=== PATIENT | female | born 1950 | race Caucasian/White ===

== ENCOUNTER → 2017-09-22 | Outpatient (CLI) | payer MEDICARE, MEDICAID ==
[2015-05-31 17:29] VITALS: BMI 39.4
[~2017-09-22] MED LIST: ACET500T68 PO; ASPI-1471 PO; ASPI-757 PO; CEP500 PO; CHOL500025 PO; DIAZ-308 PO; DULO60CA56 PO; FAM20 PO; FLUT16SP19; GABA-549 PO; HCTZ25 PO; HYDR-2966 PO; HYDR-389 PO; IBU600 PO; IBU800 PO; LISI2.5T60 PO; LOR5/325 PO; MET50 PO; METO-222 PO; MONT10TA PO; OMEP-153 PO; OMEP40CA48 PO; ONDA4TAB PO; ONDA8TAB98 PO; OXY5 PO; PHENA200 PO; RANI150T PO; SODI30SP6 NS; SULF-198 PO
--- NOTE | 2017-09-22 16:09 | EKG ---
FACILITY: [facility] [place] PATIENT NAME: TRINA COPELAND : [id number] MR: [id number] V: [id number] EXAM DATE: ORDERING PHYSICIAN: TEENA RECINOS TECHNOLOGIST: KIRAN Test Reason : z01.810 Blood Pressure : / mmHG Vent. Rate : 084 BPM Atrial Rate : 084 BPM P-R Int : 130 ms QRS Dur : 076 ms QT Int : 376 ms P-R-T Axes : 037 049 037 degrees QTc Int : 444 ms Sinus rhythm No acute appearing findings No previous ECGs available Confirmed by BI ORTEGA ([id number]) on 09/22/2017 7:53:09 PM Referred By: GRISEL Confirmed By:BI ORTEGA
== END ==
LOC: RESP 15:57
PROVIDERS: ATTEND Anesthesiology
DX: Z01.810 Encounter for preprocedural cardiovascular examination (principal); G24.5 Blepharospasm; H02.042 Spastic entropion of right lower eyelid; H02.045 Spastic entropion of left lower eyelid
CPT/HCPCS: 93005

== ENCOUNTER → 2017-11-12 | Outpatient (CLI) | payer MEDICARE ==
[2015-05-31 17:29] VITALS: BMI 39.4
--- NOTE | 2017-11-12 12:04 | RADIOLOGY IMAGING REPORT ---
FACILITY: [facility] PATIENT NAME: Luciana Berg : 1950 MR: [id number] V: [id number] EXAM DATE: ORDERING PHYSICIAN: LIDIA HAYES TECHNOLOGIST: Location: [facility] Patient: Luciana Berg : 1950 Visit/Account:[id number] Date of Sevice: 11/12/2017 LIVER HISTORY: Fatty liver COMPARISON: December 23, 2008 FINDINGS: Gallbladder: Surgically absent Liver: There is mild heterogeneous echotexture throughout the liver although discrete masses were not demonstrated. The liver is normal in size Common duct: Normal, 7.7 mm diameter. Pancreas: Mostly obscured by bowel gas Right kidney: Right kidney appears grossly unremarkable measuring 9 cm in length although is difficul t to image due to patient's body habitus Upper abdominal aorta and IVC: Patent. Ascites: None visualized. IMPRESSION: There is a mildly heterogeneous echotexture throughout the liver although discrete mass is not demons trated. Pancreas mostly obscured by bowel gas Right kidney appears grossly unremarkable although difficult to visualize due to patient's body habit us Report Dictated By: Francesca Wagoner MD at 11/12/2017 11:59 AM Report E-Signed By: Francesca Wagoner MD at 11/12/2017 12:01 PM WSN:[email or web address]
== END ==
LOC: US 01:14
PROVIDERS: ATTEND Nurse Practitioner Family
DX: K76.0 Fatty (change of) liver, not elsewhere classified (principal); Z90.49 Acquired absence of other specified parts of digestive tract
CPT/HCPCS: 76705

== ENCOUNTER 2017-11-20 01:38 | Day surgery (SDC) | payer MEDICARE ==
[2015-05-31 17:29] VITALS: Ht 166.4 cm; Wt 103.4 kg
[~2017-11-20] VITALS: Ht 166.4 cm; Wt 103.4 kg
[~2017-11-20 01:38] MED LIST changes: +CHOL10005 PO; +GARL1500 PO; +IBUP-1671 PO; +LOSA50TA72 PO
[2017-11-20] MEDS ORDERED: LIDOCAINE MPF 1% 5 ML VIAL ONE ×2 (12:34→13:58)
[2017-11-20] MEDS ORDERED: PROPOFOL EMUL(*) 10MG/ML 20 ML 40 ML ONE (12:34)
[2017-11-20] MEDS ORDERED: GLYCOPYRROLATE 0.2 MG/ML SDV IVP ONE (13:00)
[2017-11-20] MEDS ORDERED: LIDOCAINE/SOD BICARB 8.4% SYR ID ONE (13:25)
[2017-11-20] MEDS: NORMOSOL R SOLN(*) 1000 ML BAG 1,000 ML IV PRN ×2 (14:00→15:40)
[2017-11-20 14:24] VITALS: BP 150/67
[2017-11-20] MEDS ORDERED: ONDANSETRON 4 MG/2 ML VIAL ONE (14:56)
[2017-11-20 16:07] VITALS: BP 135/66
[2017-11-20 16:20] VITALS: BP 127/64
[2017-11-20 17:00] VITALS: BP 128/81
== END 2017-11-20 17:22 | disposition home or self-care (01) ==
LOC: OR 01:38
PROVIDERS: ATTEND Internal Medicine Gastroenterology
DX: K44.9 Diaphragmatic hernia without obstruction or gangrene (principal); K20.9 Esophagitis, unspecified; K29.70 Gastritis, unspecified, without bleeding
CPT/HCPCS: 43239; 43248; 88305; 88313; 88344; J2001; J2405; J2704; J3490

== ENCOUNTER 2018-02-09 13:16 | Outpatient (RCR) | payer MEDICARE, MEDICAID ==
[2015-05-31 17:29] VITALS: BMI 39.4
[2018-02-09 13:43] LABS: PLATELET COUNT, AUTOMATED 166 K/uL (150-450)
[2018-02-09 13:47] LABS: INR 1.11
[2018-02-10] MEDS ORDERED: GADOBENATE 529MG/1ML 15ML VIAL IVP ONE (11:05)
[2018-02-10] MEDS ORDERED: NS 0.9% 25 ML BAG 50 ML ONE (11:06)
--- NOTE | 2018-02-10 15:23 | RADIOLOGY IMAGING REPORT ---
FACILITY: [facility] PATIENT NAME: Luciana Berg : 1950 MR: [id number] V: [id number] EXAM DATE: ORDERING PHYSICIAN: FELICE RICHARDS TECHNOLOGIST: Location: [facility] Patient: Luciana Berg : 1950 Visit/Account:[id number] Date of Sevice: 02/10/2018 ABDOMEN MR W W/O CONTRAST HISTORY: Abnormal liver imaging, abnormal liver function tests, liver problems following cholecystec kyra in 2004 ADDITIONAL HISTORY: None. TECHNIQUE: TECHNIQUE: Multiplanar multisequence magnetic resonance imaging of the abdomen with and without intravenous contrast. CONTRAST: 15 mL of MultiHance COMPARISON: MR of the abdomen with and without contrast November 13, [address] of abdomen and pelvis March 12, 2017 FINDINGS: Visualized lung bases: Grossly unremarkable. Liver: There appears to been either partial postsurgical resection of the right lobe of the liver jacquie chalino focal atrophy of the right lobe. The left lobe is hypertrophied. Gallbladder: Surgically removed Bile ducts: Not grossly dilated at this time Spleen: Negative. Adrenal glands: Previous described right adrenal calcified occasions were better depicted by CT Pancreas: Negative. Kidneys: Negative. 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 Also noted are postsurgical changes from a cholecystec kyra. Gastroesophageal varices, gastric and splenic varices again noted consistent with portal hypertension Report Dictated By: Francesca Wagoner MD at 02/10/2018 2:51 PM Report E-Signed By: Francesca Wagoner MD at 02/10/2018 3:18 PM WILLYN:[email or web address]
== END 2018-02-10 18:00 | disposition home or self-care (01) ==
LOC: MRI 13:16 → EDSTATUS 02-10 13:15 → MRI 02-10 18:00
PROVIDERS: ATTEND Internal Medicine Gastroenterology
DX: R93.2 Abnormal findings on diagnostic imaging of liver and biliary tract (principal); R94.5 Abnormal results of liver function studies; I85.00 Esophageal varices without bleeding; I86.4 Gastric varices; Z90.49 Acquired absence of other specified parts of digestive tract
CPT/HCPCS: 36415; 74183; 85025; 85610; A9577; 82040; 82247; 82310; 82374; 82435; 82565; 82947; 84075; 84132; 84155; 84295; 84450; 84460; 84520

== ENCOUNTER → 2018-04-07 | Outpatient (CLI) | payer MEDICARE ==
[2015-05-31 17:29] VITALS: BMI 39.4
[2018-04-07 17:37] LABS: LDL CHOLESTEROL 82 mg/dl
== END ==
LOC: LAB 16:32
PROVIDERS: ATTEND Nurse Practitioner Family
DX: R73.01 Impaired fasting glucose (principal); E78.00 Pure hypercholesterolemia, unspecified; E87.8 Other disorders of electrolyte and fluid balance, not elsewhere classified; R53.81 Other malaise; E55.9 Vitamin D deficiency, unspecified; E83.89 Other disorders of mineral metabolism
CPT/HCPCS: 36415; 82040; 82247; 82306; 82310; 82374; 82435; 82465; 82565; 82607; 82947; 83036; 83718; 84075; 84132; 84155; 84295; 84443; 84450; 84460; 84478; 84520

== ENCOUNTER → 2018-04-08 | Outpatient (CLI) | payer MEDICARE ==
[2015-05-31 17:29] VITALS: BMI 39.4
--- NOTE | 2018-04-08 15:06 | RADIOLOGY IMAGING REPORT ---
FACILITY: [facility] PATIENT NAME: Luciana Berg : 1950 MR: [id number] V: [id number] EXAM DATE: ORDERING PHYSICIAN: SHILA HUBBARD TECHNOLOGIST: Location: [facility] [place] Patient: Luciana Berg : 1950 Visit/Account:[id number] Date of Sevice: 04/08/2018 DEXA Scan Clinical history: Postmenopausal. Comparison: DEXA scan from 07/10/2011. LUMBAR SPINE: The bone mineral density (BMD) measured from L1-L4 correlates with a Z-score of -1 and a T-score of - 1.5 which is osteopenia as defined by the World Health Organization. The corresponding risk of fract ure in the lumbar spine is 3 times increased compared with a young adult reference population. This value has decrease by -8.7 % since the prior study. More than 5% change is considered significant. HIP: Bone mineral density (BMD) measured in the LEFT total hip region correlates with a Z-score 0.1 and a T-score of -0.5 which is normal as defined by the World Health Organization. The corresponding risk of fracture in the hip is 1-2 t imes increased compared to a young adult reference population. This value has decrease by 4.3 % since the prior study. More than 5% change is considered significant. T score left femoral neck -1.2 Bone mineral density (BMD) measured in the Femoral Neck region measures 0.871 g/cm?. IMPRESSION: 1. Lumbar spine: Osteopenia. There has been 8.7% decrease in the bone mineral density since the pre vious exam. 2. Left Total Hip: Normal. There has been 4.3% decrease in the bone mineral density since the previ ous exam. 3. Femoral Neck: Bone Mineral Density is 0.871 g/cm? The next DEXA scan of this patient should include the following sites: L1-L4 and the left hip. FRAX? WHO Fracture Risk Assessment Tool link: <http://www.shef.ac.uk/FRAX/tool.jsp?locationValue=9> PLEASE NOTE: 1) The World Health Organization defines low BMD as follows: T-score Normal > -1 Osteopenia < -1 and > -2.5 Osteoporosis < -2.5 without fractures Established osteoporosis < -2.5 with fractures 2) In general, you may wish to consider: Diagnosis Treatment Follow-up DEXA Normal BMD Prevention 2-3 years Osteopenia Prevention/therapy 1-2 years Osteoporosis Therapy Yearly 3) Fracture risk estimated from the T-score is more accurate for vertebral fractures (often spontane ous) than for hip fractures. Report Dictated By: Francesca Wagoner MD at 04/08/2018 3:01 PM Report E-Signed By: Francesca Wagoner MD at 04/08/2018 3:02 PM WSN:[email or web address]
--- NOTE | 2018-04-09 15:03 | RADIOLOGY IMAGING REPORT ---
FACILITY: [facility] PATIENT NAME: TRINA COPELAND : [id number] MR: [id number] V: [id number] EXAM DATE: [id number] ORDERING PHYSICIAN: SHILA HUBABRD TECHNOLOGIST: Makenzie Crystal This report includes an Addendum and supersedes previous reports for this exam. PROCEDURE:BILATERAL DIGITAL SCREENING MAMMOGRAM WITH CAD ASSISTED INTERPRETATION & 3D TOMOSYNTHESIS COMPARISON:Prior mammograms 08/01/16, 03/03/15, 02/21/14, 02/11/13, 01/29/12. INDICATIONS:screening FINDINGS: Moderately dense fibroglandular tissue is seen throughout the breasts. The parenchymal pattern has remained stable allowing for difference in mammographic technique & patient positioning. There is no evidence of malignant appearing mass, malignant appearing calcifications or other secondary sign of malignancy in either breast. DIAGNOSTIC CATEGORY 1--NEGATIVE. RECOMMENDATIONS: ROUTINE MAMMOGRAM AND CLINICAL EVALUATION. IMPRESSION: BIRADS 1: Negative. No significant abnormality is seen. Dictated by: Francesca Wagoner M.D. on 04/08/2018 at 14:16 Transcribed by: [place] on 04/08/2018 at 14:19 Approved by: Francesca Wagoner M.D. on 04/09/2018 at 15:02 [facility] ADDENDUM: FINDINGS: The mammograms were performed without 3D breast Tomosynthesis . DIAGNOSTIC CATEGORY 1--NEGATIVE. RECOMMENDATIONS: ROUTINE MAMMOGRAM AND CLINICAL EVALUATION. Dictated by: Francesca Wagoner M.D. on 04/09/2018 at 15:18 Transcribed by: [place] on 04/09/2018 at 15:22 Approved by: Francesca Wagoner M.D. on 04/10/2018 at 8:37 [facility]
== END ==
LOC: MAMO 04-07 16:28
PROVIDERS: ATTEND Nurse Practitioner Family
DX: Z13.820 Encounter for screening for osteoporosis (principal); Z12.31 Encounter for screening mammogram for malignant neoplasm of breast; M85.88 Other specified disorders of bone density and structure, other site; N95.9 Unspecified menopausal and perimenopausal disorder; Z78.0 Asymptomatic menopausal state
CPT/HCPCS: 77063; 77067; 77080

== ENCOUNTER → 2018-04-08 | Outpatient (CLI) | payer MEDICARE ==
[2015-05-31 17:29] VITALS: BMI 39.4
== END ==
LOC: RAD 13:13
PROVIDERS: ATTEND Nurse Practitioner Family
DX: Z02.9 Encounter for administrative examinations, unspecified (principal)

== ENCOUNTER 2018-04-24 01:24 | Emergency (ER) | payer MEDICARE ==
[2015-05-31 17:29] VITALS: Wt 103.5 kg
--- NOTE | 2018-04-24 01:27 | ER Report ---
History and Physical Time Seen By MD: 01:24 HPI/ROS CHIEF COMPLAINT: Confusion HISTORY OF PRESENT ILLNESS: 67-year-old female [place] in by EMS [place] the post office where she was stranded for a long time. She apparently has been missing for 4 hours. EMS performed a glucose of 59. She was sitting in a car for so long and she became incontinent of urine in her seat. She has foul-smelling urine. Patient initially was confused, but after oral candy. Patient's glucose improved and she became more alert and responsive. Patient states her car . She was unable to started. Her cell phone was . Patient has a history of urinary incontinence from previous visits. On arrival, patient's alert and oriented 3. She voices no complaints. She smells of urinary incontinence. She denies dysuria, frequency or hematuria. She denies fever or chills. She notes a scratchy throat REVIEW OF SYSTEMS: Respiratory: No cough, no dyspnea. Cardiovascular: No chest pain, no palpitations. Gastrointestinal: No vomiting, no abdominal pain. Musculoskeletal: No back pain. Allergies: Coded Allergies: clarithromycin (Verified Allergy, Intermediate, THROAT ITCHING, 08/08/14) meperidine (Verified Allergy, Intermediate, HALLUCINATIONS, 08/08/14) amoxicillin (Verified Allergy, Unknown, 11/18/17) clavulanic acid (Verified Allergy, Unknown, 11/18/17) Home Meds Reported Medications Ibuprofen (MOTRIN IB) 200 Mg Tablet, 1 TAB PO QDAY PRN for PAIN 11/18/17 Cholecalciferol (Vitamin D3) (VITAMIN D3) 1,000 Unit Tablet, 2000 UNIT PO QDAY, TAB 11/18/17 Losartan Potassium (LOSARTAN POTASSIUM) 50 Mg Tablet, 50 MG PO QDAY 11/18/17 Aspirin (ASPIR 81) 81 Mg Tablet.dr, 81 MG PO QDAY, TAB 04/29/16 Duloxetine Hcl (CYMBALTA) 60 Mg Capsule.dr, 60 MG PO QDAY, CAP 04/29/16 Omeprazole (OMEPRAZOLE) 40 Mg Capsule.dr, 40 MG PO QDAY, CAP 05/24/15 Sodium Chloride (SALINE NASAL SPRAY) 30 Ml [place], 30 ML NS PRN for CONGESTION, SPRAY 02/28/15 Montelukast Sodium (SINGULAIR) 10 Mg Tablet, 1 TAB PO QDAY, TAB 02/28/15 Fluticasone Prop 50 Mcg Ns (FLONASE 50 MCG NS) 16 Gm [place].susp, 2 SPRAYS QDAY, #48 08/08/14 Hydrochlorothiazide (HYDROCHLOROTHIAZIDE) 25 Mg Tablet, 1 TAB PO QDAY TAKE ONE TABLET BY MOUTH EVERY DAY 08/08/14 Oxybutynin Chloride (Ditropan) 5 Mg Tab, 5 MG PO BID 12/17/11 Discontinued Reported Medications Garlic (GARLIC) 1,500 Mg Capsule, 3000 MG PO DAILY, CAPSULE 11/18/17 Past Medical/Surgical History Pmhx; htn, sleep apnea, bladder incontinence, gerd,? Alzheimer's Pshx: knee replacment, colonoscopy, davon, bile duct repair, breast bx, EGD with dilation Reviewed Nurses Notes: Yes Old Medical Records Reviewed: Yes Hx Smoking: No Smoking Status: Never Smoker Exposure to Second Hand Smoke?: No Hx Substance Use Disorder: No Hx Alcohol Use: Yes Constitutional Vital Sign - Last 24 Hours 04/24/18 04/24/18 04/24/18 04/24/18 01:29 01:36 01:39 01:54 Temp 97.9 Pulse 84 80 69 Resp 16 33 21 B/P (MAP) 141/61 141/61 (87) Pulse Ox 94 97 97 O2 Delivery Room Air 04/24/18 04/24/18 04/24/18 04/24/18 02:09 02:24 02:39 02:52 Pulse 73 74 ??? Resp 16 B/P (MAP) 143/63 (89) Pulse Ox 97 04/24/18 04/24/18 04/24/18 04/24/18 02:54 03:09 03:14 03:19 Pulse ??? 78 70 71 Pulse Ox 96 96 04/24/18 04/24/18 04/24/18 04/24/18 03:24 03:29 03:34 03:39 Pulse 72 73 71 71 Pulse Ox 96 94 94 04/24/18 04/24/18 04/24/18 04/24/18 03:44 03:49 04:03 04:24 Pulse 74 67 ??? B/P (MAP) 125/78 (94) Pulse Ox 95 94 Physical Exam Vital signs stable, afebrile, pulse ox normal General Appearance: The patient is alert, has no immediate need for airway protection and no current signs of toxicity. Alert and oriented 3, seems mildly confused,? Dementia. Old records suggest a history of dementia HEENT: Pupils equal and round no injection. TMs normal, oropharynx without redness or exudate, mucous. Membranes are moist, no erythema Respiratory: Chest is non tender, lungs are clear to auscultation. Cardiac: regular rate and rhythm, no murmur Gastrointestinal: Abdomen is soft and non tender, no masses, bowel sounds normal. Musculoskeletal: Neck: Neck is supple and non tender. No lymphadenopathy Extremities have full range of motion and are non tender. No edema, well-healed bilateral knee scars Skin: No rashes or lesions. DIFFERENTIAL DIAGNOSIS: After history and physical exam differential diagnosis was considered for altered mental status including but not limited to hypoglycemia, infectious process, electrolyte abnormality, head injury and intoxicants. Medical Decision Making Data Points Result Diagram: 04/24/18 0221 04/24/18 022 Laboratory Hematology Test 04/24/18 01:53 04/24/18 02:21 04/24/18 03:10 Whole Blood Glucose 94 mg/DL (75-110) Red Blood Count 3.86 M/uL (4.17-5.56) Mean Corpuscular Volume 102.7 fL (80.0-96.0) Mean Corpuscular Hemoglobin 36.2 pg (26.0-33.0) Mean Corpuscular Hemoglobin Concent 35.3 g/dL (32.0-36.0) Red Cell Distribution Width 14.2 % (11.5-14.5) Mean Platelet Volume 7.6 fL (7.2-11.1) Neutrophils (%) (Auto) 70.9 % (39.4-72.5) Lymphocytes (%) (Auto) 20.6 % (17.6-49.6) Monocytes (%) (Auto) 7.1 % (4.1-12.4) Eosinophils (%) (Auto) 0.9 % (0.4-6.7) Basophils (%) (Auto) 0.5 % (0.3-1.4) Nucleated RBC Relative Count (auto) 0.3 /100WBC Neutrophils # (Auto) 5.0 K/uL (2.0-7.4) Lymphocytes # (Auto) 1.5 K/uL (1.3-3.6) Monocytes # (Auto) 0.5 K/uL (0.3-1.0) Eosinophils # (Auto) 0.1 K/uL (0.0-0.5) Basophils # (Auto) 0.0 K/uL (0.0-0.1) Nucleated RBC Absolute Count (auto) 0.02 K/uL Carboxyhemoglobin 0.0 % (< 5.0) Sodium Level 142 mmol/L (137-145) Potassium Level 4.7 mmol/L (3.5-5.0) Chloride Level 104 mmol/L (98-107) Carbon Dioxide Level 28 mmol/L (22-31) Blood Urea Nitrogen 19 mg/dl (7-18) Creatinine 0.80 mg/dl (0.52-1.04) Glomerular Filtration Rate Calc > 60.0 Random Glucose 123 mg/dl (75-110) Calcium Level 10.2 mg/dl (8.4-10.2) Total Bilirubin 1.9 mg/dl (0.2-1.3) Aspartate Amino Transf (AST/SGOT) 136 U/L (0-35) Alanine Aminotransferase (ALT/SGPT) 94 U/L (0-56) Alkaline Phosphatase 679 U/L (0-126) Troponin I < 0.012 ng/ml Total Protein 8.2 g/dl (6.3-8.2) Albumin 4.0 g/dl (3.5-5.0) Thyroid Stimulating Hormone (TSH) 2.98 uIU/ml (0.46-4.68) Serum Alcohol < 10 mg/dl Urine Color Yellow Urine Clarity Clear Urine pH 6.0 pH (4.8-9.5) Urine Specific [place] 1.013 Urine Protein Negative mg/dL (NEGATIVE) Urine Glucose (UA) Negative mg/dL (NEGATIVE) Urine Ketones Negative mg/dL (NEGATIVE) Urine Blood Negative (NEGATIVE) Urine Nitrite Negative (NEGATIVE) Urine Bilirubin Negative (NEGATIVE) Urine Urobilinogen 4.0 mg/dL (0.2-1.9) Urine Leukocyte Esterase Trace (NEGATIVE) Urine RBC None /HPF (0-2/HPF) Urine WBC 30 /HPF (0-5/HPF) Urine Squamous Epithelial Cells Many /LPF (NONE-FEW) Urine Transitional Epithelial Cells Few /LPF (NONE-FEW) Urine Bacteria Negative /HPF (NONE-FEW) Urine Mucus None /HPF (NONE-FEW) Urine Opiates Screen Negative Urine Barbiturates Screen Negative Ur Tricyclic Antidepressants Screen Negative Urine Phencyclidine Screen Negative Urine Amphetamines Screen Negative Urine Benzodiazepines Screen Negative Urine Cocaine Screen Negative Urine Cannabinoids Screen Negative Chemistry Test 04/24/18 01:53 04/24/18 02:21 04/24/18 03:10 Whole Blood Glucose 94 mg/DL (75-110) White Blood Count 7.1 k/uL (4.5-11.0) Red Blood Count 3.86 M/uL (4.17-5.56) Hemoglobin 14.0 g/dL (12.0-16.0) Hematocrit 39.6 % (34.0-47.0) Mean Corpuscular Volume 102.7 fL (80.0-96.0) Mean Corpuscular Hemoglobin 36.2 pg (26.0-33.0) Mean Corpuscular Hemoglobin Concent 35.3 g/dL (32.0-36.0) Red Cell Distribution Width 14.2 % (11.5-14.5) Platelet Count 201 K/uL (150-450) Mean Platelet Volume 7.6 fL (7.2-11.1) Neutrophils (%) (Auto) 70.9 % (39.4-72.5) Lymphocytes (%) (Auto) 20.6 % (17.6-49.6) Monocytes (%) (Auto) 7.1 % (4.1-12.4) Eosinophils (%) (Auto) 0.9 % (0.4-6.7) Basophils (%) (Auto) 0.5 % (0.3-1.4) Nucleated RBC Relative Count (auto) 0.3 /100WBC Neutrophils # (Auto) 5.0 K/uL (2.0-7.4) Lymphocytes # (Auto) 1.5 K/uL (1.3-3.6) Monocytes # (Auto) 0.5 K/uL (0.3-1.0) Eosinophils # (Auto) 0.1 K/uL (0.0-0.5) Basophils # (Auto) 0.0 K/uL (0.0-0.1) Nucleated RBC Absolute Count (auto) 0.02 K/uL Carboxyhemoglobin 0.0 % (< 5.0) Glomerular Filtration Rate Calc > 60.0 Calcium Level 10.2 mg/dl (8.4-10.2) Total Bilirubin 1.9 mg/dl (0.2-1.3) Aspartate Amino Transf (AST/SGOT) 136 U/L (0-35) Alanine Aminotransferase (ALT/SGPT) 94 U/L (0-56) Alkaline Phosphatase 679 U/L (0-126) Troponin I < 0.012 ng/ml Total Protein 8.2 g/dl (6.3-8.2) Albumin 4.0 g/dl (3.5-5.0) Thyroid Stimulating Hormone (TSH) 2.98 uIU/ml (0.46-4.68) Serum Alcohol < 10 mg/dl Urine Color Yellow Urine Clarity Clear Urine pH 6.0 pH (4.8-9.5) Urine Specific [place] 1.013 Urine Protein Negative mg/dL (NEGATIVE) Urine Glucose (UA) Negative mg/dL (NEGATIVE) Urine Ketones Negative mg/dL (NEGATIVE) Urine Blood Negative (NEGATIVE) Urine Nitrite Negative (NEGATIVE) Urine Bilirubin Negative (NEGATIVE) Urine Urobilinogen 4.0 mg/dL (0.2-1.9) Urine Leukocyte Esterase Trace (NEGATIVE) Urine RBC None /HPF (0-2/HPF) Urine WBC 30 /HPF (0-5/HPF) Urine Squamous Epithelial Cells Many /LPF (NONE-FEW) Urine Transitional Epithelial Cells Few /LPF (NONE-FEW) Urine Bacteria Negative /HPF (NONE-FEW) Urine Mucus None /HPF (NONE-FEW) Urine Opiates Screen Negative Urine Barbiturates Screen Negative Ur Tricyclic Antidepressants Screen Negative Urine Phencyclidine Screen Negative Urine Amphetamines Screen Negative Urine Benzodiazepines Screen Negative Urine Cocaine Screen Negative Urine Cannabinoids Screen Negative Toxicology Test 04/24/18 02:21 04/24/18 03:10 Serum Alcohol < 10 mg/dl Urine Opiates Screen Negative Urine Barbiturates Screen Negative Ur Tricyclic Antidepressants Screen Negative Urine Phencyclidine Screen Negative Urine Amphetamines Screen Negative Urine Benzodiazepines Screen Negative Urine Cocaine Screen Negative Urine Cannabinoids Screen Negative Urinalysis Test 04/24/18 03:10 Urine Color Yellow Urine Clarity Clear Urine pH 6.0 pH (4.8-9.5) Urine Specific [place] 1.013 Urine Protein Negative mg/dL (NEGATIVE) Urine Glucose (UA) Negative mg/dL (NEGATIVE) Urine Ketones Negative mg/dL (NEGATIVE) Urine Blood Negative (NEGATIVE) Urine Nitrite Negative (NEGATIVE) Urine Bilirubin Negative (NEGATIVE) Urine Urobilinogen 4.0 mg/dL (0.2-1.9) Urine Leukocyte Esterase Trace (NEGATIVE) Urine RBC None /HPF (0-2/HPF) Urine WBC 30 /HPF (0-5/HPF) Urine Squamous Epithelial Cells Many /LPF (NONE-FEW) Urine Transitional Epithelial Cells Few /LPF (NONE-FEW) Urine Bacteria Negative /HPF (NONE-FEW) Urine Mucus None /HPF (NONE-FEW) EKG/Imaging EKG Interpretation 12 lead EK Rhythm: normal sinus rhythm at 74 bpm with some sinus arrhythmia [place]: normal QRS: normal ST segments: normal, no evidence of ischemia Imaging X-ray: Two-view chest x-ray was obtained. I viewed the images myself on the PACS system. My interpretation of the images is: No infiltrate, no effusion, normal mediastinum. The radiologist interpretation had no clinically significant variation from this interpretation. Results: CT scan of the [head] was obtained. The results of the study are no acute findings. The study was read by the radiologist. I viewed the images myself on the PACS system. ED Course/Re-evaluation Clinical Indication for ER IV: IV Access ED Course Patient was admitted to an examination room. H&P was done. The differential diagnoses was considered. On clinical examination. Patient alert and oriented 3, movement of extremities 4. She has a nonfocal neurologic examination. There is a hint of dementia in her mentation. Her old records are reviewed. Diagnostic evaluation was undertaken. She seemed confused EMS at the scene. She had a blood glucose of 59. It may have been repaired and that was causing her the confusion she was stranded [place] the post office her car would not start the battery was dad her cell phone was . She was reluctant to call anyone else for help. Like she was there for several hours. Patient's discharged home to follow-up with her primary care physician. Decision to Disposition Date: Apr 24, 2018 Decision to Disposition Time: 04:14 Depart Departure Latest Vital Signs Vital Signs Date Time Temp Pulse Resp B/P (MAP) Pulse Ox O2 Delivery O2 Flow Rate FiO2 04/24/18 04:24 ??? 04/24/18 04:03 125/78 (94) 04/24/18 03:49 94 04/24/18 02:24 16 04/24/18 01:29 97.9 Room Air Impression: Primary Impression: Confusion Additional Impressions: Alzheimer's dementia Hypoglycemia Urinary incontinence Elevated MCV Condition: Improved Disposition: HOME OR SELF-CARE Referrals: SHILA HUBBARD (PCP) Patient Instructions: GENERAL ER DISCHARGE INSTRUCTIONS Additional Instructions: Follow-up with primary care if unimproved in 3-5 days Problem Qualifiers Additional Impressions: Alzheimer's dementia Alzheimer's disease onset: early-onset Dementia behavioral disturbance: without behavioral disturbance Qualified Codes: G30.0 - Alzheimer's disease with early onset; F02.80 - Dementia in other diseases classified elsewhere without behavioral disturbance Urinary incontinence Urinary Incontinence type: unspecified incontinence Qualified Codes: R32 - Unspecified urinary incontinence KIARA WALLACE DO Apr 24, 2018 01:27
--- NOTE | 2018-04-24 01:49 | EKG ---
FACILITY: [facility] PATIENT NAME: TRINA COPELAND : [id number] MR: [id number] V: [id number] EXAM DATE: ORDERING PHYSICIAN: KIARA WALLACE TECHNOLOGIST: WILIAN Browne Reason : ALTERED MENTAL STATUS Blood Pressure : / mmHG Vent. Rate : 074 BPM Atrial Rate : 078 BPM P-R Int : 154 ms QRS Dur : 076 ms QT Int : 432 ms P-R-T Axes : 061 042 033 degrees QTc Int : 479 ms Normal sinus rhythm with sinus arrhythmia Normal ECG When compared with ECG of 22-SEP-2017 16:00, No significant change was found Confirmed by Irvin Flores ([id number]) on 04/24/2018 6:38:05 AM Referred By: Confirmed By:Irvin Pinto
[2018-04-24 02:36] LABS: PLATELET COUNT, AUTOMATED 201 K/uL (150-450)
--- NOTE | 2018-04-24 03:21 | RADIOLOGY IMAGING REPORT ---
[place] [facility] [place] NAME: Luciana Berg : 1950 MR: [id number] V: [id number] EXAM DATE: ORDERING PHYSICIAN: KIARA WALLACE TECHNOLOGIST: Location: [facility] [place] Patient: Luciana Berg : 1950 Visit/Account:[id number] Date of Sevice: 04/24/2018 TWO VIEW CHEST 04/24/2018 1:28 AM. INDICATION: Confusion. COMPARISON: 03/12/2017. FINDINGS: Lungs are well-expanded. The lungs are clear. No pneumothorax or pleural effusion. Pulmo nary vasculature is unremarkable. Heart size is normal. Cholecystectomy clips. IMPRESSION: No acute cardiopulmonary abnormality. Report Dictated By: Anthony Cabrera MD at 04/24/2018 2:53 AM Report E-Signed By: Anthony Cabrera MD at 04/24/2018 2:55 AM WSN:[id number]
--- NOTE | 2018-04-24 03:21 | RADIOLOGY IMAGING REPORT ---
[place] [facility] [place]: Luciana [place] : 1950 MR: [id number] V: [id number] EXAM DATE: ORDERING PHYSICIAN: KIARA WALLACE TECHNOLOGIST: [place] [facility] [place] : 1950 Visit/Account:[id number] Date of Sevice: 04/24/2018 CT Head without contrast Indication: Confusion. Comparison: 03/12/2017. Technique: Axial CT images were obtained through the brain from the skull base to the vertex without administration of IV contrast. One of the following dose optimization techniques was utilized in th e performance of this exam: Automated exposure control; adjustment of the mA and/or kV according to t he patient's size; or use of an iterative reconstruction technique. Specific details can be referen verito in the facility's radiology CT exam operational policy. Findings: No evidence of suspicious mass, mass effect, or midline shift. No acute intracranial hemorrhage or acute territorial infarction. Partially calcified 4 mm lesion adjacent to the left frontal lobe on image 63 series 2 likely represe nts a meningioma. Skull is nonacute. Bilateral lens surgeries. The visualized paranasal sinuses and mastoid air spaces are clear. IMPRESSION: No acute intracranial abnormality. Report Dictated By: Anthony Cabrera MD at 04/24/2018 2:55 AM Report E-Signed By: Anthony Cabrera MD at 04/24/2018 3:03 AM WSN:[id number]
[2018-04-24 04:03] VITALS: BP 125/78
== END 2018-04-24 04:33 | disposition home or self-care (01) ==
LOC: ER 01:30
DX: G30.0 Alzheimer's disease with early onset (principal); R32 Unspecified urinary incontinence; E16.2 Hypoglycemia, unspecified; R79.89 Other specified abnormal findings of blood chemistry; Z79.82 Long term (current) use of aspirin; R41.82 Altered mental status, unspecified
CPT/HCPCS: 36415; 36416; 70450; 71046; 80305; 81001; 82375; 82948; 84443; 84484; 85025; 87077; 87088; 87186; 93005; 99284; G0480; 80320; 82040; 82247; 82310; 82374; 82435; 82565; 82947; 84075; 84132; 84155; 84295; 84450; 84460; 84520

== ENCOUNTER → 2018-04-24 | Outpatient (CLI) | payer MEDICARE ==
[2015-05-31 17:29] VITALS: BMI 39.4
== END ==
LOC: AMB 00:48
PROVIDERS: ATTEND Nurse Practitioner
DX: R40.4 Transient alteration of awareness (principal); R53.1 Weakness; R32 Unspecified urinary incontinence; R15.9 Full incontinence of feces
CPT/HCPCS: A0425; A0429

== ENCOUNTER → 2018-05-19 | Outpatient (CLI) | payer MEDICARE ==
[2015-05-31 17:29] VITALS: BMI 39.4
[~2018-05-19] MED LIST changes: -LOSA50TA72 PO; +LOSA50TA74 PO
--- NOTE | 2018-05-19 12:06 | RADIOLOGY IMAGING REPORT ---
FACILITY: [facility] PATIENT NAME: Luciana Berg : 1950 MR: [id number] V: [id number] EXAM DATE: ORDERING PHYSICIAN: TI PATEL TECHNOLOGIST: Location: [facility] Patient: Luciana Berg : 1950 Visit/Account:[id number] Date of Sevice: 05/19/2018 VENOUS DOPP LOW LEFT EXTREMITY HISTORY: Fall, pain and swelling COMPARISON: None. FINDINGS: Duplex sonographic images, segmental compressibility and evaluation of respiratory phasicity reveals no evidence of DVT. No mass or fluid collection. Mild subcutaneous edema is noted at the level of t he calf. IMPRESSION: No sonographic evidence of DVT. Report Dictated By: Manuel Tolbert MD at 05/19/2018 12:02 PM Report E-Signed By: Manuel Tolbert MD at 05/19/2018 12:03 PM [id number]
== END ==
LOC: US 10:35
PROVIDERS: ATTEND Nurse Practitioner Family
DX: R09.02 Hypoxemia (principal); R79.81 Abnormal blood-gas level; M79.662 Pain in left lower leg

== ENCOUNTER 2018-06-12 14:53 | Emergency (ER) | payer MEDICARE ==
[2015-05-31 17:29] VITALS: Wt 101.6 kg
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
[2018-06-12] MEDS ORDERED: NS(*) 0.9% 1000 ML BAG 1,000 ML IV ONE (15:30)
[2018-06-12 15:40] LABS: PLATELET COUNT, AUTOMATED 188 K/uL (150-450)
[2018-06-12] MEDS ORDERED: IOPAMIDOL 76% 75 ML INFUS BTL 75 ML ONE (15:42)
--- NOTE | 2018-06-12 15:50 | EKG ---
[place]AC[place] [facility] [place]IENT NAME: TRINA COPELAND : [id number] MR: [id number] V: [id number] EXAM DATE: ORDERING PHYSICIAN: DILLON ROSADO TECHNOLOGIST: LIZA Test Reason : ABDOMINAL PAIN Blood Pressure : / mmHG Vent. Rate : 071 BPM Atrial Rate : 071 BPM P-R Int : 138 ms QRS Dur : 088 ms QT Int : 444 ms P-R-T Axes : 016 032 014 degrees QTc Int : 482 ms Sinus rhythm No acute appearing findings When compared with ECG of 24-APR-2018 01:42, No significant change was found Confirmed by BI ORTEGA ([id number]) on 06/12/2018 7:50:25 PM Referred By: DILLON MOURA Confirmed By:BI ORTEGA
[2018-06-12 15:52] LABS: INR 1.03
[2018-06-12] MEDS ORDERED: DONE5TAB29 (15:54)
--- NOTE | 2018-06-12 17:15 | RADIOLOGY IMAGING REPORT ---
FACILITY: [facility] PATIENT NAME: Luciana Berg : 1950 MR: [id number] V: [id number] EXAM DATE: ORDERING PHYSICIAN: DILLON ROSADO TECHNOLOGIST: Location: [facility] Patient: Luciana Berg : 1950 Visit/Account:[id number] Date of Sevice: 06/12/2018 Computed tomograpy abdomen and pelvis with IV contrast Indication: Jaundice. Abdominal pain. Comparison: March 12, 2017. Technique: Transaxial computed tomography images were obtained through the abdomen and pelvis follo wing the injection of nonionic iodinated intravenous contrast. Reformatted coronal and sagittal image s were also obtained. One of the following dose optimization techniques was utilized in the performance of this exam: Autom ated exposure control; adjustment of the mA and/or kV according to the patient's size; or use of an i terative reconstruction technique. Specific details can be referenced in the facility's radiology C T exam operational policy. Contrast: 75 ml of Isovue-370 IV contrast. Findings: Lower lung medley: Limited views lower lung field are unremarkable. Liver: There is central pneumobilia which was seen previously. Correlate for prior biliary sphinctero kyra procedure. Liver has lobulated contours with a small/shrunken right hepatic lobe and an enlarged left hepatic lobe and enlarged caudate lobe in keeping with the history of underlying liver cirrhosi s. Biliary: There has been previous cholecystectomy. Pancreas: Normal appearance. Spleen: The spleen measures 11.4 cm in greatest dimension and is within normal limits for size. Adrenal glands: Calcifications are seen in the right adrenal gland likely from prior hemorrhage or ol d granulomatous disease. Kidneys / retroperitoneum: There is a cyst within the midpole of the left kidney with layering milk o f calcium. This is unchanged. No hydronephrosis. Bowel / peritoneum / mesenteries: There is a large amount stool throughout the colon and rectum. A po rtion of the right colon does not appear stool filled and there is apparent wall thickening. This may simply reflect peristalsis but a right-sided colitis or portal colopathy could appear similarly. Thi s was not seen previously. There is a small bowel anastomosis in the mid abdomen which was seen previ ously. The small bowel appears focally dilated in the region of the anastomosis. Similar dilatation w as seen previously. No proximal small bowel dilatation. Lymph node assessment: No pathologic adenopathy identified. Pelvic structures: Previous hysterectomy. No free pelvic fluid. Vessels: Scattered atherosclerotic vascular calcifications involve the abdominal aorta. There are num erous collaterals within the splenic hilum. There are gastroesophageal varices are present all simila r to the prior exam and consistent with a portal venous hypertension. Musculoskeletal / Body wall: Multilevel degenerative disc disease involves the spine. No acute compre ssion fracture seen. IMPRESSION: 1. Large amount of stool throughout the colon and rectum. Correlate clinically for constipation as et iology for the patient's pain. 2. Focal area of apparent wall thickening of the ascending colon. This may simply reflect peristalsis . A right-sided colitis or right-sided portal colopathy would also be in the differential. Clinical c orrelation is necessary. 3. Abnormal liver which appears similar in appearance to the prior study compatible with cirrhosis. T here is central pneumobilia without gross change. 4. Numerous venous collaterals within the splenic hilum and in the gastroesophageal region consistent with portal hypertension. Report Dictated By: Durga Mcgarry at 06/12/2018 4:45 PM Report E-Signed By: Durga Mcgarry at 06/12/2018 5:10 PM WSN:[id number]
[2018-06-12] MEDS ORDERED: MAGNESIUM CITRATE 300 ML BTL PO ONE (18:00)
[2018-06-12 18:15] VITALS: BP 119/64
== END 2018-06-12 18:26 | disposition home or self-care (01) ==
LOC: ER 14:58
DX: R94.5 Abnormal results of liver function studies (principal); E80.7 Disorder of bilirubin metabolism, unspecified; R17 Unspecified jaundice; K75.9 Inflammatory liver disease, unspecified; K59.00 Constipation, unspecified
CPT/HCPCS: 74177; 81001; 82140; 82248; 83690; 85025; 85610; 85730; 93005; 96360; 99284; A9270; J7030; Q9967; 82040; 82247; 82310; 82374; 82435; 82565; 82947; 84075; 84132; 84155; 84295; 84450; 84460; 84520

== ENCOUNTER → 2018-06-16 | Outpatient (CLI) | payer MEDICARE ==
[2015-05-31 17:29] VITALS: BMI 39.4
[~2018-06-16] MED LIST changes: +DONE5TAB29
[2018-06-16 12:22] LABS: PLATELET COUNT, AUTOMATED 209 K/uL (150-450)
[2018-06-16 12:33] LABS: INR 1.04
== END ==
LOC: LAB 12:06
PROVIDERS: ATTEND Nurse Practitioner Family
DX: R74.8 Abnormal levels of other serum enzymes (principal); R17 Unspecified jaundice
CPT/HCPCS: 36415; 82040; 82247; 82310; 82374; 82435; 82565; 82947; 84075; 84132; 84155; 84295; 84450; 84460; 84520; 85025; 85610

== ENCOUNTER 2018-06-24 14:56 | Emergency (ER) | payer MEDICARE ==
[2015-05-31 17:29] VITALS: Wt 101.7 kg
[2018-06-24] MEDS ORDERED: NS(*) 0.9% 1000 ML BAG 1,000 ML IV ONE (15:04)
[2018-06-24] MEDS ORDERED: ONDANSETRON 4 MG/2 ML VIAL IVP ONE (15:05)
--- NOTE | 2018-06-24 15:13 | ER Report ---
History and Physical Time Seen By MD: 15:10 Hx. of Stated Complaint: sent by doc with poss acute liver failure/ acute confusion HPI/ROS CHIEF COMPLAINT confusion HISTORY OF PRESENT ILLNESS: [age] female history of liver disorder secondary to a surgical complication resulting in a bilirubin Danny issue current bilirubin reportedly outside liver specialist for evaluation secondary to increased confusion of the last couple days she's noted to be more confused listed on a trip and was confuses when she is mostly confined her luggage patient has no focal complaints is unaware of these events patient has no abdominal pain nausea vomiting diarrhea fever chills REVIEW OF SYSTEMS: Respiratory: No cough, no dyspnea. Cardiovascular: No chest pain, no palpitations. Gastrointestinal: No vomiting, no abdominal pain. Musculoskeletal: No back pain. Remainder of the 14 system rev: Yes Allergies: Coded Allergies: clarithromycin (Verified Allergy, Intermediate, THROAT ITCHING, 06/12/18) meperidine (Verified Allergy, Intermediate, HALLUCINATIONS, 06/12/18) amoxicillin (Verified Allergy, Unknown, 06/12/18) clavulanic acid (Verified Allergy, Unknown, 06/12/18) Home Meds Reported Medications Ibuprofen (MOTRIN IB) 200 Mg Tablet, 1 TAB PO QDAY PRN for PAIN 11/18/17 Cholecalciferol (Vitamin D3) (VITAMIN D3) 1,000 Unit Tablet, 2000 UNIT PO QDAY, TAB 11/18/17 Losartan Potassium (LOSARTAN POTASSIUM) 50 Mg Tablet, 50 MG PO QDAY 11/18/17 Aspirin (ASPIR 81) 81 Mg Tablet.dr, 81 MG PO QDAY, TAB 04/29/16 Duloxetine Hcl (CYMBALTA) 60 Mg Capsule.dr, 60 MG PO QDAY, CAP 04/29/16 Omeprazole (OMEPRAZOLE) 40 Mg Capsule.dr, 40 MG PO QDAY, CAP 05/24/15 Montelukast Sodium (SINGULAIR) 10 Mg Tablet, 1 TAB PO QDAY, TAB 02/28/15 Fluticasone Prop 50 Mcg Ns (FLONASE 50 MCG NS) 16 Gm [place].susp, 2 SPRAYS QDAY, #48 08/08/14 Hydrochlorothiazide (HYDROCHLOROTHIAZIDE) 25 Mg Tablet, 1 TAB PO QDAY TAKE ONE TABLET BY MOUTH EVERY DAY 08/08/14 Oxybutynin Chloride (Ditropan) 5 Mg Tab, 5 MG PO BID 12/17/11 Discontinued Reported Medications Donepezil Hcl (DONEPEZIL HCL) 5 Mg Tablet 06/12/18 Sodium Chloride (SALINE NASAL SPRAY) 30 Ml [place], 30 ML NS PRN for CONGESTION, SPRAY 02/28/15 Reviewed Nurses Notes: Yes Old Medical Records Reviewed: Yes Hx Smoking: No Smoking Status: Never Smoker Exposure to Second Hand Smoke?: No Hx Substance Use Disorder: No Hx Alcohol Use: Yes (rarely) Constitutional Vital Sign - Last 24 Hours 06/24/18 15:06 Temp 98.2 Pulse 82 Resp 16 B/P (MAP) 150/65 Pulse Ox 99 O2 Delivery Room Air Physical Exam General Appearance: [The patient is alert, has no immediate need for airway protection and no current signs of toxicity.] [ ] Eyes: Anicteric sclera Respiratory: Chest is non tender, lungs are clear to auscultation. Cardiac: regular rate and rhythm [ ] Gastrointestinal: Abdomen is soft and non tender, no masses, bowel sounds normal. Musculoskeletal: Neck: Neck is supple and non tender. Extremities have full range of motion and are non tender. Skin: Some jaundice [ ] DIFFERENTIAL DIAGNOSIS: After history and physical exam differential diagnosis was considered for liver failure jaunt this increased bilirubin connector encephalopathy Medical Decision Making Data Points Result Diagram: 06/24/18 1547 06/24/18 1547 Laboratory Hematology Test 06/24/18 15:47 06/24/18 16:50 Red Blood Count 3.51 M/uL (4.17-5.56) Mean Corpuscular Volume 103.4 fL (80.0-96.0) Mean Corpuscular Hemoglobin 36.8 pg (26.0-33.0) Mean Corpuscular Hemoglobin Concent 35.6 g/dL (32.0-36.0) Red Cell Distribution Width 14.8 % (11.5-14.5) Mean Platelet Volume 7.8 fL (7.2-11.1) Neutrophils (%) (Auto) 46.7 % (39.4-72.5) Lymphocytes (%) (Auto) 39.2 % (17.6-49.6) Monocytes (%) (Auto) 11.1 % (4.1-12.4) Eosinophils (%) (Auto) 2.1 % (0.4-6.7) Basophils (%) (Auto) 0.9 % (0.3-1.4) Nucleated RBC Relative Count (auto) 0.0 /100WBC Neutrophils # (Auto) 2.8 K/uL (2.0-7.4) Lymphocytes # (Auto) 2.4 K/uL (1.3-3.6) Monocytes # (Auto) 0.7 K/uL (0.3-1.0) Eosinophils # (Auto) 0.1 K/uL (0.0-0.5) Basophils # (Auto) 0.1 K/uL (0.0-0.1) Nucleated RBC Absolute Count (auto) 0.00 K/uL Peripheral Blood Smear No Y/N Prothrombin Time 13.5 seconds (12.0-14.4) Prothromb Time International Ratio 1.03 Activated Partial Thromboplast Time 35 seconds (23-35) Sodium Level 139 mmol/L (137-145) Potassium Level 3.7 mmol/L (3.5-5.0) Chloride Level 101 mmol/L (98-107) Carbon Dioxide Level 25 mmol/L (22-31) Blood Urea Nitrogen 28 mg/dl (7-18) Creatinine 1.00 mg/dl (0.52-1.04) Glomerular Filtration Rate Calc 55.0 Random Glucose 121 mg/dl (75-110) Calcium Level 9.8 mg/dl (8.4-10.2) Total Bilirubin 7.0 mg/dl (0.2-1.3) Aspartate Amino Transf (AST/SGOT) 237 U/L (0-35) Alanine Aminotransferase (ALT/SGPT) 124 U/L (0-56) Alkaline Phosphatase 791 U/L (0-126) Ammonia 35 UMOL/L (9-33) Total Protein 7.9 g/dl (6.3-8.2) Albumin 3.4 g/dl (3.5-5.0) Lipase 204 U/L (23-300) Serum Alcohol < 10 mg/dl Urine Color Angie Urine Clarity Clear Urine pH 5.0 pH (4.8-9.5) Urine Specific [place] 1.020 Urine Protein Negative mg/dL (NEGATIVE) Urine Glucose (UA) Negative mg/dL (NEGATIVE) Urine Ketones Negative mg/dL (NEGATIVE) Urine Blood Negative (NEGATIVE) Urine Nitrite Negative (NEGATIVE) Urine Bilirubin Small (NEGATIVE) Urine Urobilinogen 4.0 mg/dL (0.2-1.9) Urine Leukocyte Esterase Negative (NEGATIVE) Urine RBC 1 /HPF (0-2/HPF) Urine WBC 1 /HPF (0-5/HPF) Urine Squamous Epithelial Cells Many /LPF (NONE-FEW) Urine Bacteria Negative /HPF (NONE-FEW) Urine Mucus Few /HPF (NONE-FEW) Chemistry Test 06/24/18 15:47 06/24/18 16:50 White Blood Count 6.1 k/uL (4.5-11.0) Red Blood Count 3.51 M/uL (4.17-5.56) Hemoglobin 12.9 g/dL (12.0-16.0) Hematocrit 36.3 % (34.0-47.0) Mean Corpuscular Volume 103.4 fL (80.0-96.0) Mean Corpuscular Hemoglobin 36.8 pg (26.0-33.0) Mean Corpuscular Hemoglobin Concent 35.6 g/dL (32.0-36.0) Red Cell Distribution Width 14.8 % (11.5-14.5) Platelet Count 204 K/uL (150-450) Mean Platelet Volume 7.8 fL (7.2-11.1) Neutrophils (%) (Auto) 46.7 % (39.4-72.5) Lymphocytes (%) (Auto) 39.2 % (17.6-49.6) Monocytes (%) (Auto) 11.1 % (4.1-12.4) Eosinophils (%) (Auto) 2.1 % (0.4-6.7) Basophils (%) (Auto) 0.9 % (0.3-1.4) Nucleated RBC Relative Count (auto) 0.0 /100WBC Neutrophils # (Auto) 2.8 K/uL (2.0-7.4) Lymphocytes # (Auto) 2.4 K/uL (1.3-3.6) Monocytes # (Auto) 0.7 K/uL (0.3-1.0) Eosinophils # (Auto) 0.1 K/uL (0.0-0.5) Basophils # (Auto) 0.1 K/uL (0.0-0.1) Nucleated RBC Absolute Count (auto) 0.00 K/uL Peripheral Blood Smear No Y/N Prothrombin Time 13.5 seconds (12.0-14.4) Prothromb Time International Ratio 1.03 Activated Partial Thromboplast Time 35 seconds (23-35) Glomerular Filtration Rate Calc 55.0 Calcium Level 9.8 mg/dl (8.4-10.2) Total Bilirubin 7.0 mg/dl (0.2-1.3) Aspartate Amino Transf (AST/SGOT) 237 U/L (0-35) Alanine Aminotransferase (ALT/SGPT) 124 U/L (0-56) Alkaline Phosphatase 791 U/L (0-126) Ammonia 35 UMOL/L (9-33) Total Protein 7.9 g/dl (6.3-8.2) Albumin 3.4 g/dl (3.5-5.0) Lipase 204 U/L (23-300) Serum Alcohol < 10 mg/dl Urine Color Angie Urine Clarity Clear Urine pH 5.0 pH (4.8-9.5) Urine Specific [place] 1.020 Urine Protein Negative mg/dL (NEGATIVE) Urine Glucose (UA) Negative mg/dL (NEGATIVE) Urine Ketones Negative mg/dL (NEGATIVE) Urine Blood Negative (NEGATIVE) Urine Nitrite Negative (NEGATIVE) Urine Bilirubin Small (NEGATIVE) Urine Urobilinogen 4.0 mg/dL (0.2-1.9) Urine Leukocyte Esterase Negative (NEGATIVE) Urine RBC 1 /HPF (0-2/HPF) Urine WBC 1 /HPF (0-5/HPF) Urine Squamous Epithelial Cells Many /LPF (NONE-FEW) Urine Bacteria Negative /HPF (NONE-FEW) Urine Mucus Few /HPF (NONE-FEW) Coagulation Test 06/24/18 15:47 Prothrombin Time 13.5 seconds Prothromb Time International Ratio 1.03 Activated Partial Thromboplast Time 35 seconds Toxicology Test 06/24/18 15:47 Serum Alcohol < 10 mg/dl Urinalysis Test 06/24/18 16:50 Urine Color Angie Urine Clarity Clear Urine pH 5.0 pH (4.8-9.5) Urine Specific [place] 1.020 Urine Protein Negative mg/dL (NEGATIVE) Urine Glucose (UA) Negative mg/dL (NEGATIVE) Urine Ketones Negative mg/dL (NEGATIVE) Urine Blood Negative (NEGATIVE) Urine Nitrite Negative (NEGATIVE) Urine Bilirubin Small (NEGATIVE) Urine Urobilinogen 4.0 mg/dL (0.2-1.9) Urine Leukocyte Esterase Negative (NEGATIVE) Urine RBC 1 /HPF (0-2/HPF) Urine WBC 1 /HPF (0-5/HPF) Urine Squamous Epithelial Cells Many /LPF (NONE-FEW) Urine Bacteria Negative /HPF (NONE-FEW) Urine Mucus Few /HPF (NONE-FEW) ED Course/Re-evaluation ED Course ED comical course 67-year-old female no history of liver disorder comes emergen [facility] Department today concerning for some additional confusion her ammonia level was only 38 her bilirubin is down from 8.9-7 she has a track template maker who did refer her here for emergent testing rest of her labs show an elevated AST nail T she is positive for hepatitis A which is no she's answering questions appropriately she is comfortable with discharge is been diagnosed with liver disorder Decision to Disposition Date: Jun 24, 2018 Decision to Disposition Time: 18:01 Depart Departure Latest Vital Signs Vital Signs Date Time Temp Pulse Resp B/P (MAP) Pulse Ox O2 Delivery O2 Flow Rate FiO2 06/24/18 15:06 98.2 82 16 150/65 99 Room Air Impression: Primary Impression: Jaundice due to hepatitis Condition: Improved Disposition: HOME OR SELF-CARE Referrals: SHILA HUBBARD (PCP) 5 Days Patient Instructions: Non-Alcoholic Fatty Liver Disease (DC) ERLINDA STRICKLAND MD Jun 24, 2018 15:13
[2018-06-24 15:53] LABS: PLATELET COUNT, AUTOMATED 204 K/uL (150-450)
[2018-06-24 16:06] LABS: INR 1.03
--- NOTE | 2018-06-24 17:21 | RADIOLOGY IMAGING REPORT ---
[place] [facility] [place] NAME: Luciana Berg : 1950 MR: [id number] V: [id number] EXAM DATE: ORDERING PHYSICIAN: ERLINDA STRICKLAND TECHNOLOGIST: Location: [facility] Patient: Luciana Berg : 1950 Visit/Account:[id number] Date of Sevice: 06/24/2018 GALLBLADDER HISTORY: Elevated bilirubin, history of common bile duct neck on gallbladder surgery COMPARISON: CT on pelvis June 12, 2018 FINDINGS: Gallbladder: Surgically removed Liver: There is a cirrhotic appearance to the liver as seen on the recent CT scan there are comet nick l artifacts from the pneumobilia as seen on the recent CT scan. There is mild prominence of the intr ahepatic bile ducts Common duct: Normal, 6.1 mm diameter. Pancreas: Partially obscured by bowel, visualized aspects unremarkable. Right kidney: Grossly unremarkable without evidence of hydronephrosis Upper abdominal aorta and IVC: Patent. Ascites: None visualized. IMPRESSION: Cirrhotic appearance to the liver Pneumobilia was better depicted on the prior CT Mild prominence of intrahepatic bile ducts. Common bile duct measures 6.1 mm which is not unusual for postcholecystectomy patient Surgically absent gallbladder Report Dictated By: Francesca Wagoner MD at 06/24/2018 5:12 PM Report E-Signed By: Francesca Wagoner MD at 06/24/2018 5:17 PM WSN:[id number]
[2018-06-24 18:30] VITALS: BP 143/71
--- NOTE | 2018-06-24 18:46 | RADIOLOGY IMAGING REPORT ---
FACILITY: [facility] - [place] PATIENT NAME: Luciana Berg : 1950 MR: [id number] V: [id number] EXAM DATE: ORDERING PHYSICIAN: ERLINDA STRICKLAND TECHNOLOGIST: Location: [facility] [place] Patient: Luciana Berg : 1950 Visit/Account:[id number] Date of Sevice: 06/24/2018 2 VIEWS CHEST INDICATION: Pain. COMPARISON: 04/24/2018. FINDINGS: Cardiomediastinal silhouette and pulmonary vessels within normal limits. There is no focal infiltrate or lobar consolidation. There is no pneumothorax or pleural effusion. No nodule. Upper abdomen is unremarkable. No acute bony abnormality. IMPRESSION: 1. No acute cardiopulmonary process. Report Dictated By: Taj Jones at 06/24/2018 6:41 PM Report E-Signed By: Taj Jones at 06/24/2018 6:43 PM WSN:[id number]
== END 2018-06-24 19:00 | disposition home or self-care (01) ==
LOC: ER 15:37
DX: R17 Unspecified jaundice (principal); B15.9 Hepatitis A without hepatic coma
CPT/HCPCS: 81001; 82140; 83690; 85025; 85610; 85730; 96360; 96361; 99284; G0480; J7030; 71046; 76705; 80320; 82040; 82247; 82310; 82374; 82435; 82565; 82947; 84075; 84132; 84155; 84295; 84450; 84460; 84520; A4353

== ENCOUNTER → 2018-07-15 | Outpatient (CLI) | payer MEDICARE ==
[2015-05-31 17:29] VITALS: BMI 39.4
[~2018-07-15] MED LIST changes: +IOPAMIDOL 76% 75 ML INFUS BTL 75 ML ONE
[2018-07-15 12:38] LABS: PLATELET COUNT, AUTOMATED 147 K/uL (150-450)
[2018-07-15 12:46] LABS: INR 1.01
--- NOTE | 2018-07-15 18:16 | RADIOLOGY IMAGING REPORT ---
FACILITY: [facility] - [place] PATIENT NAME: Luciana Berg : 1950 MR: [id number] V: [id number] EXAM DATE: ORDERING PHYSICIAN: FELICE RICHARDS TECHNOLOGIST: Location: [facility] - [place] Patient: Luciana Berg : 1950 Visit/Account:[id number] Date of Sevice: 07/15/2018 EXAMINATION: CT Abdomen W/O Contrast CT Abdomen W/ Contrast 07/15/2018 1:30 PM HISTORY: Nonalcoholic fatty liver disease. TECHNIQUE: Spiral scans were obtained through the abdomen before and during injection of nonionic io dinated intravenous contrast. Contrast: 75 mL of IV Isovue 370. Per note from the technologist patient initially had 35 mL with failure of subsequent IV injection and imaging was done with the second contrast bolus after a delay. One of the following dose optimization techniques was utilized in the performance of this exam: Autom ated exposure control; adjustment of the mA and/or kV according to the patient's size; or use of an i terative reconstruction technique. Specific details can be referenced in the facility's radiology C T exam operational policy. COMPARISON STUDIES: 06/12/2018. FINDINGS: Liver / biliary: Cirrhotic liver with a prominent left lobe. There has been prior cholecystectomy. Clips along the back of the liver although I am uncertain if the right lobe is simply atrophic or if there has been partial hepatectomy. Intrahepatic pneumobilia is present. There is also mild intrahe patic ductal prominence. Tubular hypoenhancing focus extending superiorly in the right lobe may be a segment of intrahepatic duct or possibly a thrombosed portal vein segment but is stable in either ca se. Additional similar smaller focus in the anterosuperior left lobe. CBD is not significantly dila jose. No visible choledocholithiasis. No focal liver mass demonstrated. Pancreas: negative Spleen: 12.9 x 7.2 x 11.2 cm. Incidental anterior accessory splenule. Adrenal glands: negative Kidneys / retroperitoneum: Small lower pole posterior cortical cyst or angiomyolipoma on the left. C aliectasis associated with cortical scarring in the posterolateral lower left kidney. Bowel / peritoneum / mesenteries: Fecal material throughout visualized colon. Small bowel is not gen erally distended. There has been previous small bowel surgery with essentially stable patulous promi nence of small bowel along the anastomosis. No ascites. Vessels: Portal vein is patent. Varices around the spleen and the left upper quadrant. Splenic vein is patent. There is disease along the GE junction. Prominent gonadal vein extending down from the left renal vein. Musculoskeletal / Body wall: Spondylosis most notably at L1-2. Dependent lumbosacral edema. Lymph node assessment: negative Lower chest: negative IMPRESSION: 1. Cirrhotic liver with secondary features of portal venous hypertension. 2. Probable prominent intrahepatic biliary radicals versus possible thrombosed portal vein segments, unchanged. 3. No concerning focal liver mass. Report Dictated By: Augusto Monteiro MD at 07/15/2018 5:58 PM Report E-Signed By: Augusto Monteiro MD at 07/15/2018 6:12 PM WSN:[id number]
== END ==
LOC: CT 12:19
PROVIDERS: ATTEND Internal Medicine Gastroenterology
DX: K74.60 Unspecified cirrhosis of liver (principal)
CPT/HCPCS: 36415; 74160; 85025; 85610; Q9967; 82040; 82247; 82310; 82374; 82435; 82565; 82947; 84075; 84132; 84155; 84295; 84450; 84460; 84520

== ENCOUNTER → 2018-09-21 | Outpatient (CLI) | payer MEDICARE ==
[2015-05-31 17:29] VITALS: BMI 39.4
[~2018-09-21] MED LIST changes: -IOPAMIDOL 76% 75 ML INFUS BTL 75 ML ONE; -LOSA50TA74 PO; +LOSA50TA80 PO
== END ==
LOC: LAB 14:59
PROVIDERS: ATTEND Nurse Practitioner Family
DX: E87.8 Other disorders of electrolyte and fluid balance, not elsewhere classified (principal); R53.81 Other malaise; R73.01 Impaired fasting glucose; E78.00 Pure hypercholesterolemia, unspecified; E53.8 Deficiency of other specified B group vitamins
CPT/HCPCS: 36415; 82040; 82247; 82310; 82374; 82435; 82465; 82565; 82607; 82947; 83036; 83718; 84075; 84132; 84155; 84295; 84443; 84450; 84460; 84478; 84520

== ENCOUNTER → 2018-09-25 | Outpatient (REF) | payer MEDICARE ==
[2015-05-31 17:29] VITALS: BMI 39.4
[~2018-09-25] MED LIST changes: +LACT10SO62 PO
== END ==
LOC: ZZPBJ 12:55
PROVIDERS: ATTEND Orthopaedic Surgery
DX: M25.461 Effusion, right knee (principal); M25.561 Pain in right knee; B96.20 Unspecified Escherichia coli [E. coli] as the cause of diseases classified elsewhere; Z98.890 Other specified postprocedural states
CPT/HCPCS: 87071; 87073; 87077; 87186; 87205; 89050; 89060

== ENCOUNTER → 2018-09-28 | Outpatient (CLI) | payer MEDICARE ==
[2015-05-31 17:29] VITALS: BMI 39.4
== END ==
LOC: LAB 15:15
PROVIDERS: ATTEND Nurse Practitioner Family
DX: E72.20 Disorder of urea cycle metabolism, unspecified (principal); Z01.810 Encounter for preprocedural cardiovascular examination
CPT/HCPCS: 82140; 93005

== ENCOUNTER 2018-09-29 01:40 | Inpatient (IN) | payer MEDICARE ==
[2018-09-28 16:06] LABS: PLATELET COUNT, AUTOMATED 281 K/uL (150-450)
[2018-09-28 16:18] LABS: INR 1.04
--- NOTE | 2018-09-28 17:26 | EKG ---
FACILITY: [facility] PATIENT NAME: TRINA COPELAND : [id number] MR: [id number] V: [id number] EXAM DATE: ORDERING PHYSICIAN: SHEN FELDMAN TECHNOLOGIST: FEMI Browne Reason : PRE-OP Blood Pressure : / mmHG Vent. Rate : 084 BPM Atrial Rate : 084 BPM P-R Int : 124 ms QRS Dur : 080 ms QT Int : 396 ms P-R-T Axes : 028 038 023 degrees QTc Int : 467 ms Sinus rhythm with premature atrial complexes Otherwise normal ECG When compared with ECG of 12-JUN-2018 15:40, Previous ECG has undetermined rhythm, needs review Confirmed by TEENA ANDERS ([id number]) on 09/29/2018 6:30:27 AM Referred By: FRANCIA Confirmed By:TEENA ANDERS
[2018-09-29] VITALS (14 sets, daily range): BP systolic 91–128; BP diastolic 42–64
[~2018-09-29] VITALS: Ht 165.1 cm; Wt 89.4 kg
[~2018-09-29 01:40] MED LIST changes: -FLUT16SP19; +FLUT16SP19 ENA
--- NOTE | 2018-09-29 03:01 | HISTORY AND PHYSICAL ---
DATE OF ADMISSION: September 29, 2018 IDENTIFICATION/CHIEF COMPLAINT Sherie is a 67-year-old woman with a chief complaint of right knee pain. HISTORY OF PRESENT ILLNESS Patient is status post successful knee replacement, which was performed about three years ago. She had generally done well until about a month ago, when she developed increased pain and swelling in her knee while she was out of town in [place]. She denies any systemic signs of illness. This has become progressively more painful over time. Surgery is indicated to treat a hematogenously seeded infected right knee replacement. PAST MEDICAL HISTORY Notable for: 1. 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 2. Hypertension. 3. Sleep apnea. 4. Recent sinus infection. 5. Recent bronchitis. ALLERGIES 1. AMOXICILLIN. 2. CLARITHROMYCIN. 3. CLAVULANIC ACID. 4. MEPERIDINE. CURRENT MEDICATIONS 1. Aspirin 81 mg p.o. daily. 2. Duloxetine 60 mg p.o. daily. 3. Fluticasone nasal inhaler daily. 4. Hydrochlorothiazide 25 mg p.o. daily. 5. Losartan 50 mg p.o. daily. 6. Montelukast 10 mg p.o. daily. 7. Omeprazole 40 mg p.o. daily. 8. She was placed on doxycycline by the [place] doctor for sinus and bronchial infection. 9. Oxybutynin 5 mg a day. 10. Ondansetron 4 mg as needed. 11. Lactulose 10 g (15 mL) twice a day in solution. PAST SURGICAL HISTORY Notable for: 1. Bilateral knee replacements. 2. Biliary reconstruction as mentioned above. 3. Treatment for cysts. 4. Colonoscopy. 5. Hysterectomy. 6. Breast biopsy. 7. Cholecystectomy. 8. Tubal ligation. 9. Kidney stone removal. FAMILY HISTORY Noncontributory. SOCIAL HISTORY Negative for tobacco and alcohol use. REVIEW OF SYSTEMS Negative. PHYSICAL EXAMINATION GENERAL: This is a healthy female. HEENT: She is normocephalic, atraumatic. NECK: Supple. LUNGS: Clear. HEART: Regular. ABDOMEN: Soft. ORTHOPEDIC: The right knee is warm. She has pain throughout range of motion, stiff at the end range, and effusion is present. Skin is well healed. There is no sinus tract. Calves nontender. Neurovascular function intact. DIAGNOSTIC STUDIES Radiographs demonstrate a well-aligned, well-fixed knee arthroplasty with no implant loosening, migration, or failure. Aspirate reveals over 30,000 white cells with 99% polys. A small number of gram-negative rods are identified, and subsequent cultures reveal that these are E. coli. 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 PLAN Unfortunately, two-stage surgery with explanation, I and D, and subsequent reimplantation after satisfactory control of the infection is indicated. Patient is consented for the first stage of procedure today, which will be explantation and placement of an antibiotic-loaded cement spacer. Rationale, risks, benefits, and alternatives were discussed at some length, and the anticipated rehab course and need for second operation are discussed. Risks of the procedure include but are not limited to , major medical or anesthetic complication, infection, neurovascular injury, blood transfusion, fracture, residual retained infection, deep bone infection, need for additional surgery including further I and D procedures before reimplantation, and other unforeseen. A signed permit is placed in the chart. No guarantees are given or implied. [facility]
[2018-09-29] MEDS ORDERED: FAMOTIDINE 20 MG TAB PO ONE (10:30)
[2018-09-29] MEDS ORDERED: TRANEXAMIC AC 1000 MG/10ML SDV 1,000 MG in DEXTROSE 5% 50 ML BAG 50 ML IV ONE (11:30)
[2018-09-29] MEDS ORDERED: ACETAMINOPHEN 500 MG TAB PO ONE (11:30)
[2018-09-29] MEDS ORDERED: NORMOSOL R SOLN(*) 1000 ML BAG 1,000 ML IV PRN ×2 (11:30→17:00)
[2018-09-29] MEDS ORDERED: CELECOXIB 200 MG CAP PO ONE (11:30)
[2018-09-29] MEDS ORDERED: PREGABALIN 150 MG CAPSULE PO ONE (11:30)
[2018-09-29] MEDS ORDERED: CLINDAMYCIN(*) 900 MG/NS 50 ML 50 ML IVPB ONE ×2 (11:30→15:35)
[2018-09-29] MEDS ORDERED: ROPIVACAINE/EPI/CLONIDINE/KET 50 ML SYRINGE INJ ONE (11:30)
[2018-09-29] MEDS ORDERED: LIDOCAINE/SOD BICARB 8.4% SYR ID ONE (11:30)
[2018-09-29] MEDS ORDERED: MIDAZOLAM 2 MG/2 ML VIAL IVP PRN (11:30)
[2018-09-29] MEDS ORDERED: ONDANSETRON 4 MG/2 ML VIAL ONE (11:52)
[2018-09-29] MEDS ORDERED: fentaNYL CITR 100 MCG/2 ML AMP ONE (11:52)
[2018-09-29] MEDS ORDERED: DEXAMETHASONE SOD PHOS 10MG/ML ONE (11:52)
[2018-09-29] MEDS ORDERED: LIDOCAINE MPF 1% 5 ML VIAL ONE (11:52)
[2018-09-29] MEDS ORDERED: PROPOFOL EMUL(*) 10MG/ML 20 ML 20 ML ONE (11:52)
[2018-09-29] MEDS ORDERED: KETAMINE HCL 500 MG/10 ML VIAL ONE (11:53)
[2018-09-29] MEDS ORDERED: KETAMINE HCL 200 MG/20 ML MDV ONE (11:54)
[2018-09-29] MEDS ORDERED: ACETAMINOPHEN 325 MG TAB PO PRN (17:00)
[2018-09-29] MEDS ORDERED: FLUSH 10 ML SYR IVP PRN (17:00)
[2018-09-29] MEDS ORDERED: PROMETHAZINE 25 MG/ML 1 ML AMP IVP PRN (17:00)
[2018-09-29] MEDS ORDERED: diphenhydrAMINE 50 MG/ML VIAL IVP PRN (17:00)
[2018-09-29] MEDS ORDERED: ZOLPIDEM TARTRATE 5 MG TAB PO PRN (17:00)
[2018-09-29] MEDS ORDERED: MAGNESIUM HYDROXIDE* 30ML UDCP PO PRN (17:00)
[2018-09-29] MEDS ORDERED: BENZOCAINE/MENTHOL 1 EACH LOZG PO PRN (17:00)
[2018-09-29] MEDS ORDERED: APAP/HYDROCODONE 325/7.5 TAB PO PRN (17:00)
[2018-09-29] MEDS ORDERED: diphenhydrAMINE 25 MG CAP PO PRN (17:00)
[2018-09-29] MEDS ORDERED: BISACODYL 10 MG SUPP PR PRN (17:00)
--- NOTE | 2018-09-29 17:18 | RADIOLOGY IMAGING REPORT ---
FACILITY: [facility] - [place] PATIENT NAME: Luciana Berg : 1950 MR: [id number] V: [id number] EXAM DATE: ORDERING PHYSICIAN: SHEN FELDMAN TECHNOLOGIST: Location: [facility] - [place] Patient: Luciana Berg : 1950 Visit/Account:[id number] Date of Sevice: 09/29/2018 Exam type: KNEE LIMITED RIGHT History: Postop I and D right TKA with antibiotic spacers Comparison: March 07, 2015. Findings: Two views of the right knee demonstrate interval removal of the previous right knee arthroplasty. An tibiotic spacers are now in place. Small amount soft tissue gas is noted over the anterior aspect of the right knee IMPRESSION: 1. As above Report Dictated By: Francesca Wagoner MD at 09/29/2018 5:11 PM Report E-Signed By: Francesca Wagoner MD at 09/29/2018 5:13 PM WSN:[id number]
--- NOTE | 2018-09-29 18:01 | OPERATIVE REPORT 1 ---
EVENT DATE: September 29, 2018 SURGEON: Atul Khan MD ANESTHESIOLOGIST: Giovany Joshua MD ANESTHESIA: General plus spinal. 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 PROCEDURES PERFORMED 1. Irrigation. 2. Complete synovectomy of right knee with removal of all components and cement. 3. Placement of antibiotic-loaded interspace knee spacer with tobramycin-loaded cement. ESTIMATED BLOOD LOSS Minimal. DRAINS None. SPECIMENS Tissue and fluid sent for Gram stain, culture, and sensitivity. COMPLICATIONS None apparent. IMPLANTS USED [employer] cobalt bone cement preloaded with antibiotic, as well as interspace knee spacer size medium from [employer]. INDICATIONS Sherie is 3+ years out from index knee arthroplasty which was uncomplicated. Subsequently, she developed pain around August 16 and has had a tap of the knee revealing 99% polymorphic cells, over 30,000 count, and grossly purulent- appearing material which was growing E. coli. She has a history of previous complex biliary surgery which is the most likely source. She also had sinusitis and bronchitis at the time of her pain initiation. Surgery is indicated at this time to eradicate infection and hopefully prevent spread of this infection to the contralateral replaced knee as well. DESCRIPTION OF PROCEDURE Patient is taken to the operating room. She is placed supine on the operating table. Spinal block is administered by the anesthesiologist. General anesthesia is induced. No antibiotics are initiated initially. Limb is exsanguinated with an Esmarch bandage and inflated to 300 mmHg. The old surgical scar is opened and carried down through the skin and scar to the extensor mechanism. Full-thickness flaps are developed far enough over to allow medial parapatellar arthrotomy be performed. The old Ethibond suture line is then opened, and turbid fluid is encountered. This is sent for stat Gram stain, culture, sensitivity, aerobic, and anaerobic. Subsequently, the scar tissue is resected enough to allow the patella to be everted. The knee is brought into flexed position, and a synovectomy/capsulectomy is performed. Soft tissue specimens are sent from the more inflamed areas. The components are well fixed. A rongeur is used to expose the implant-cement interface, and starting with the femur, a small, high-speed oscillating saw is used to loosen up the cement- prosthesis interface. This is performed along all surfaces on the femur. The impactor/distractor is then applied and is slightly malleted, and then the SLAP extractor is used and the femoral components removed easily with minimal bone loss. Next, attention is turned to the tibial baseplate. Identical technique is used along with flexible osteotomes, and this is extracted again with no loss of the cortical rim. Additional bone cement down along the fin is resected with rongeur and osteotomes to remove all loose and lousy debris, and the joint is cleared. Additional synovectomy is performed in the posterior recess which was not previously accessible. The patellar button is then extracted by using the same high-speed oscillating saw at the implant-cement interface. The individual lug holes are removed after drilling and curetting these areas. A ball rasp and high-speed addie are used to remove the cement at the base of these lug holes. Wound is then copiously lavaged with at least 9 L of saline with pulse lavage, and all debris is removed. A trial for the interspace medium spacer fills up the gap ideally, maintaining nice tension. A mix of the DJO cobalt antibiotic- loaded bone cement is made, and this is allowed to reach very dense viscosity. The components are then cemented in place taking care to avoid deep cement penetration. A small button is fashioned to hold the patellofemoral joint open as well as minimize scar tissue and difficulty at the revision. This is the way to tell this almost cures so this does not stick to the patella and is placed in the patellofemoral space. Vancomycin powder is added, and the knee is closed in light flexion with an antibiotic-loaded #1 PDS suture. The skin is closed with 2-0 nylon mattress sutures and simple sutures. Xeroform is applied for a dry, sterile dressing, a compression wrap, and a knee immobilizer. Patient is subsequently awakened from anesthesia and taken to the recovery room in stable condition having tolerated the procedure well. PLAN The plan is for consultation with Infectious Disease as well as the hospitalist service regarding her GI issues and potential identification of any biliary source. When lab markers are adequate, and she has had a satisfactory course of IV antibiotics per Infectious Disease, will return for second stage reimplantation. EDSON
[2018-09-29] MEDS: CELECOXIB 200 MG CAP PO SCH (18:35)
[2018-09-29] MEDS: cefTRIAXone(*) 2 GM VIAL 2 GM in NS(*) 0.9% 100 ML ADDVANT BAG 100 ML IVPB SCH (20:38)
[2018-09-29] MEDS ORDERED: NS(*) 0.9% 500 ML BAG 500 ML ONE (20:46)
--- NOTE | 2018-09-29 22:17 | Hospitalist Consultation ---
History of Present Illness Requesting Physician Dr Salvador Reason for Consult Management chronic comorbidities Chief Complaint post knee explant History of Present Illness 67F with TKA which has become infected. Explanted today with Abx impregnated spacer placed, tolerated procedure well per operative report. Ecoli growing in knee aspirate. PMHx significant for GERD, HTN, depression, urinary incontinence, hepatitis. History Problems: (1) HTN (hypertension) Status: Chronic (2) Hypercholesterolemia Status: Chronic (3) GERD (gastroesophageal reflux disease) Status: Chronic Home Meds Reported Medications Lactulose (LACTULOSE) 10 Gm/15 Ml Solution, 20 GM PO BID 09/28/18 Losartan Potassium (LOSARTAN POTASSIUM) 50 Mg Tablet, 50 MG PO QDAY 11/18/17 Aspirin (ASPIR 81) 81 Mg Tablet.dr, 81 MG PO QDAY, TAB 04/29/16 Duloxetine Hcl (CYMBALTA) 60 Mg Capsule.dr, 60 MG PO QDAY, CAP 04/29/16 Omeprazole (OMEPRAZOLE) 40 Mg Capsule.dr, 40 MG PO QDAY, CAP 05/24/15 Montelukast Sodium (SINGULAIR) 10 Mg Tablet, 1 TAB PO QDAY, TAB 02/28/15 Fluticasone Prop 50 Mcg Ns (FLONASE 50 MCG NS) 16 Gm [place].susp, 2 SPRAYS QDAY, #48 08/08/14 Hydrochlorothiazide (HYDROCHLOROTHIAZIDE) 25 Mg Tablet, 1 TAB PO QDAY TAKE ONE TABLET BY MOUTH EVERY DAY 08/08/14 Oxybutynin Chloride (Ditropan) 5 Mg Tab, 5 MG PO BID 12/17/11 Discontinued Reported Medications Ibuprofen (MOTRIN IB) 200 Mg Tablet, 1 TAB PO QDAY PRN for PAIN 11/18/17 Cholecalciferol (Vitamin D3) (VITAMIN D3) 1,000 Unit Tablet, 2000 UNIT PO QDAY, TAB 11/18/17 Allergies: Coded Allergies: clarithromycin (Verified Allergy, Intermediate, THROAT ITCHING, 06/12/18) meperidine (Verified Allergy, Intermediate, HALLUCINATIONS, 06/12/18) amoxicillin (Verified Allergy, Unknown, 06/12/18) clavulanic acid (Verified Allergy, Unknown, 06/12/18) Patient History: FH: HTN (hypertension) FATHER FH: ovarian cancer MOTHER FH: thyroid disease MOTHER BROTHER OR SISTER History of insulin dependent diabetes mellitus in sibling MOTHER BROTHER OR SISTER Hypoglycemia BROTHER OR SISTER Hx Smoking: No Smoking Status: Never Smoker Exposure to Second Hand Smoke?: No Caffeine Intake: Coffee, Tea Caffeine/Cups Per Day: 1/DAY, 1/DAY Hx Alcohol Use: Yes (rarely) Hx Substance Use Disorder: No Social Drug Use: Never Review of Systems All Systems Reviewed/Normal: Yes, Except as Noted Constitutional: No Fever, No Chills Respiratory: No Shortness of Breath Exam Vital Signs Vital Signs Date Time Temp Pulse Resp B/P (MAP) Pulse Ox O2 Delivery O2 Flow Rate FiO2 09/29/18 19:30 80 91/58 (69) 98 09/29/18 17:50 97.8 16 Nasal Cannula 2.0 General Appearance: No Acute Distress, Afebrile Neuro: No Gross deficits ENT: Normal Cardiovascular: Normal Rhythm & Peripheral Pulses Respiratory: No Respiratory Distress GI: Abd Soft and Non-Tender Extremities: Soft and Non Tender, Warm, Pulses, Perfused Medical Decision Making Data Points Result Diagram: 09/28/18 1535 09/28/18 1535 Assessment and Plan Problems: (1) Septic arthritis Status: Acute Assessment & Plan: Post explant and wash out, growing E coli from joint aspirate outside hospital. Will cover with ceftriaxone based on susceptibility data from outside hospital. Given odd pathogen isolated for location will get CT abdomen/pelvis with contrast to evaluate for abdominal source that could cause hematogenous spread. (2) HTN (hypertension) Status: Chronic Assessment & Plan: Continue chronic HCTZ, losartan. (3) GERD (gastroesophageal reflux disease) Status: Chronic Assessment & Plan: Continue chronic PPI. (4) Jaundice due to hepatitis Status: Chronic Assessment & Plan: Continue chronic lactulose. Venous Thromboembolism Antithrombotics Is Pt On Any Antithrombotics?: Yes SHIRLENE DAVALOS DO Sep 29, 2018 22:17
[2018-09-30] VITALS (7 sets, daily range): BP systolic 97–124; BP diastolic 47–82; Ht 165.1 cm; Wt 89.4 kg
[2018-09-30] MEDS: PANTOPRAZOLE SOD 40 MG TABEC PO SCH (06:14)
[2018-09-30 06:21] LABS: PLATELET COUNT, AUTOMATED 180 K/uL (150-450)
[2018-09-30] MEDS: CELECOXIB 200 MG CAP PO SCH ×2 (07:33→16:51)
--- NOTE | 2018-09-30 07:43 | NUR ---
INITIAL ADMISSION ASSESSMENT NOT COMPLETE WHEN PT ARRIVED TO UNIT. COMPLETED INTERVENTION; unknown answers to general questions Addendum: 09/30/18 at 1216 by GEE RANGEL RN Amended: Links added.
[2018-09-30] MEDS: ASPIRIN 325 MG TAB PO SCH (08:40)
[2018-09-30] MEDS: OXYBUTYNIN CHL 5 MG TAB PO SCH ×2 (08:40→21:38)
[2018-09-30] MEDS: HYDROCHLOROTHIAZIDE 25 MG TAB PO SCH (08:41)
[2018-09-30] MEDS: LOSARTAN POTASSIUM 50 MG TAB PO SCH (08:41)
[2018-09-30] MEDS: LACTULOSE 10 GM/15 ML UDCUP PO SCH ×2 (08:43→21:00)
[2018-09-30] MEDS ORDERED: DULoxetine HCL 30 MG CAPCR PO SCH (09:00)
[2018-09-30] MEDS ORDERED: MONTELUKAST SODIUM 10 MG TAB PO SCH (09:00)
--- NOTE | 2018-09-30 09:38 | NUR ---
ECF Referral - Received consult for ECF. Need to identify what skill she will require. Awaiting PT/OT notes and clarification on mcc antibiotics. Patient has [facility] Medicare which will require a preauthorization prior to admission. Noah Small notified of the need for anticipated discharge date prior to starting the preauthorization process.
--- NOTE | 2018-09-30 09:59 | NUR ---
ECF Referral - PASRR negative. Notified of planned admission on Friday10/02/18 for preauthorization.
[2018-09-30] MEDS ORDERED: IOPAMIDOL 76% 50 ML INFUS BTL 100 ML ONE (10:46)
--- NOTE | 2018-09-30 10:57 | Hospitalist Progress Note ---
Subjective Progress Notes Subjective She has no complaints this morning. She had no acute events overnight. Patient Complains of: Cardiovascular: No: Chest Pain Respiratory: No: Shortness of Breath Physical Exam Vital Signs Date Time Temp Pulse Resp B/P (MAP) Pulse Ox O2 Delivery O2 Flow Rate FiO2 09/30/18 08:01 95 Room Air 09/30/18 07:43 97.8 68 16 124/57 (79) 1.0 Intake and Output 09/30/18 07:00 Intake Total 4100 ml Output Total 100 ml Balance 4000 ml Intake Oral 300 ml IV Total 1900 ml Other 1900 ml Output Estimated Blood Loss 100 ml # Voids 1 General Appearance: Alert, Awake, No Acute Distress, Afebrile Neuro: No Gross deficits Cardiovascular: Regular Rate and Rhythm Respiratory: No Respiratory Distress, Clear to Auscultation Psych: Alert & Oriented X3, Appropriate Mood & Affect Result Diagram: 09/30/18 0604 09/28/18 1535 Assessment and Plan Problems: (1) Septic arthritis Status: Acute Assessment & Plan: Post explant and wash out, growing E coli from joint aspirate outside hospital. Will cover with ceftriaxone based on susceptibility data from outside hospital. Given odd pathogen isolated for location will get CT abdomen/pelvis with contrast to evaluate for abdominal source that could cause hematogenous spread. She will get PICC placed today. (2) HTN (hypertension) Status: Chronic Assessment & Plan: Continue chronic HCTZ, losartan. (3) GERD (gastroesophageal reflux disease) Status: Chronic Assessment & Plan: Continue chronic PPI. (4) Jaundice due to hepatitis Status: Chronic Assessment & Plan: Continue chronic lactulose. Exam Sepsis Risk: No Definite Risk Problem Qualifiers (1) HTN (hypertension): Hypertension type: essential hypertension Qualified Codes: I10 - Essential (primary) hypertension CHERI MENDEZP Sep 30, 2018 10:57
--- NOTE | 2018-09-30 11:41 | RADIOLOGY IMAGING REPORT ---
FACILITY: [facility] [place] PATIENT NAME: Luciana Berg : 1950 MR: [id number] V: [id number] EXAM DATE: ORDERING PHYSICIAN: SHIRLENE OLGUIN TECHNOLOGIST: Location: [facility] [place] Patient: Luciana Berg : 1950 Visit/Account:[id number] Date of Sevice: 09/29/2018 CT ABDOMEN PELVIS W/ CON HISTORY: Evaluate for abscess TECHNIQUE: Following administration of IV contrast contiguous axial images acquired through the abdom en/pelvis. Coronal and sagittal reformatting also performed.Dose Lowering Technique One of the following dose optimization techniques was utilized in the performance of this exam: Autom ated exposure control; adjustment of the mA and/or kV according to the patient's size; or use of an i terative reconstruction technique. Specific details can be referenced in the facility's radiology C T exam operational policy. CONTRAST: 75 mL Isovue-370 COMPARISON: July 15, 2018 and June 12, 2018 FINDINGS: Visualized lung bases: Negative. Hepatobiliary: There postsurgical changes from a cholecystectomy. Intrahepatic pneumobilia again no jose slightly increased again noted are surgical clips along the posterior aspect of the liver could b e related to partial colectomy. If not the right lobe appears atrophic.. Tubular hypoenhancing foci extending superiorly in the right lobe and anterosuperior in the left lobe again seen. As previousl y noted this may represent segment of intrahepatic ducts or possibly thrombosed portal vein segments . This finding has remained stable. Again noted is a cirrhotic appearance to the liver with promine nt left lobe lobular contour. Focal hepatic mass is not demonstrated Spleen: Accessory splenules Adrenals: There calcifications in the right adrenal gland Pancreas: Negative. Kidneys ureters or bladder: Several tiny hypoattenuating lesions and coarse ossifications in the left kidney appears stable. Mild soft tissue prominence in the upper pole collecting system of the right kidney may represent mild caliectasis . This appears similar to the prior CT from June 12, 2018 Genitalia: Hysterectomy GI: Stomach is moderately distended with particulate material. Correlation with meal history needed . Postsurgical changes of the small bowel in the mid left-sided abdomen appear stable with a patulou s segment of small bowel adjacent to the anastomosis is a moderate amount of fecal material seen thro ughout colon which can be seen with constipation. This particular prominent in the right side of the colon . Vessels/spaces/nodes: Very prominent tortuous left gonadal vein again seen. Extensive varices are i dentified in the left upper quadrant adjacent to the spleen and the stomach consistent with portal h ypertension Bones/soft tissues: Spondylotic changes of the visualized thoracal lumbar spine again seen Additional findings: None pertinent. IMPRESSION: There is a cirrhotic appearance to the liver as described above. There are postsurgical changes from cholecystectomy with pneumobilia which is slightly increased. The previously described tubular hypoenhancing structures within the right and left lobes appears sta ble and may be secondary to intrapelvic ducts or possibly thrombosed portal vein segments. Extensive splenic and gastric varices consistent with portal hypertension. Also noted is a very prom inent tortuous left gonadal vein Large amount stool throughout colon which can be seen with constipation. Stomach is also moderately distended with particulate material therefore correlation with meal history needed.. Report Dictated By: Francesca Wagoner MD at 09/30/2018 11:14 AM Report E-Signed By: Francesca Wagoner MD at 09/30/2018 11:36 AM WSN:[email or web address]
--- NOTE | 2018-09-30 14:48 | NUR ---
Physical Therapy Impression PT eval completed. Pt is able to maintain PWB on R) LE with knee immobilizer in place for ambulation to/from doorway with FWW and CGA/Min assist by PT. Physical Therapy Goals 1. Pt to demo compliance with PWB status during ADL's 2. Pt to be Mod indep with bed mobility 3. Pt to be SBA/CGA for sit to/from stand 4. Pt to amb 100' with FWW, brace and PWB with SBA/CGA Patient's Goals
[2018-09-30] MEDS: oxyCODONE HCL 5 MG CAP PO PRN ×2 (15:51→21:40)
--- NOTE | 2018-09-30 17:08 | RADIOLOGY IMAGING REPORT ---
FACILITY: [facility] - [place] PATIENT NAME: Luciana Berg : 1950 MR: [id number] V: [id number] EXAM DATE: ORDERING PHYSICIAN: SHEN FELDMAN TECHNOLOGIST: Location: [facility] [place] Patient: Luciana Berg : 1950 Visit/Account:[id number] Date of Sevice: 09/29/2018 Exam type: US GUIDANCE VASCULAR ACCESS, PICC LINE INSERTION History: ALF ABX Comparison: None. Findings: Informed consent was obtained. The patient's left arm was prepped and draped usual sterile fashion. Local anesthesia was accomplished 1% lidocaine. Utilizing both sonographic and fluoroscopic guidanc e a 40 cm long trimmed 5 British double lumen power PICC was inserted via the patent left basilic vein with the distal tip resting in superior vena cava. Both lumens of the PICC line were flushed with 5 mL of saline flush. Proximal portion PICC line was adhered patient's arm the sterile dressing. Son ographic images were saved to PACS. The procedure was accomplished without apparent complication. T he fluoroscopy dose area product was 151.48 micro-Beard per meter squared. IMPRESSION: 1. Successful placement of a 40 cm long trimmed 5 British double-lumen power PICC inserted via the pa tent left basilic vein with the distal tip resting in superior vena cava Report Dictated By: Francesca Wagoner MD at 09/30/2018 5:01 PM Report E-Signed By: Francesca Wagoner MD at 09/30/2018 5:03 PM WSN:[email or web address]
--- NOTE | 2018-09-30 17:08 | RADIOLOGY IMAGING REPORT ---
[place] [facility] [place] NAME: Luciana Berg : 1950 MR: [id number] V: [id number] EXAM DATE: ORDERING PHYSICIAN: SHEN FELDMAN TECHNOLOGIST: Location: [facility] Patient: Luciana Berg : 1950 Visit/Account:[id number] Date of Sevice: 09/29/2018 Exam type: US GUIDANCE VASCULAR ACCESS, PICC LINE INSERTION History: GROUP HOME ABX Comparison: None. Findings: Informed consent was obtained. The patient's left arm was prepped and draped usual sterile fashion. Local anesthesia was accomplished 1% lidocaine. Utilizing both sonographic and fluoroscopic guidanc e a 40 cm long trimmed 5 Ethiopian double lumen power PICC was inserted via the patent left basilic vein with the distal tip resting in superior vena cava. Both lumens of the PICC line were flushed with 5 mL of saline flush. Proximal portion PICC line was adhered patient's arm the sterile dressing. Son ographic images were saved to PACS. The procedure was accomplished without apparent complication. T he fluoroscopy dose area product was 151.48 micro-Beard per meter squared. IMPRESSION: 1. Successful placement of a 40 cm long trimmed 5 Ethiopian double-lumen power PICC inserted via the pa tent left basilic vein with the distal tip resting in superior vena cava Report Dictated By: Francesca Wagoner MD at 09/30/2018 5:01 PM Report E-Signed By: Francesca Wagoner MD at 09/30/2018 5:03 PM WSN:[email or web address]
[2018-09-30] MEDS: MONTELUKAST SODIUM 10 MG TAB PO SCH (21:38)
[2018-09-30] MEDS: cefTRIAXone(*) 2 GM VIAL 2 GM in NS(*) 0.9% 100 ML ADDVANT BAG 100 ML IVPB SCH (21:38)
[2018-09-30] MEDS: DULoxetine HCL 30 MG CAPCR PO SCH (21:38)
[2018-09-30] MEDS: DIAZEPAM 5 MG TAB PO PRN (23:56)
[2018-10-01] VITALS (7 sets, daily range): BP systolic 104–115; BP diastolic 35–60
[2018-10-01] MEDS: PANTOPRAZOLE SOD 40 MG TABEC PO SCH (05:15)
[2018-10-01] MEDS: oxyCODONE HCL 5 MG CAP PO PRN ×3 (05:15→21:15)
[2018-10-01] MEDS: CELECOXIB 200 MG CAP PO SCH ×2 (07:28→17:20)
[2018-10-01] MEDS: DIAZEPAM 5 MG TAB PO PRN ×2 (07:28→17:20)
[2018-10-01] MEDS: HYDROCHLOROTHIAZIDE 25 MG TAB PO SCH (09:00)
[2018-10-01] MEDS: LOSARTAN POTASSIUM 50 MG TAB PO SCH (09:00)
[2018-10-01] MEDS: LACTULOSE 10 GM/15 ML UDCUP PO SCH ×2 (09:05→21:00)
[2018-10-01] MEDS: ASPIRIN 325 MG TAB PO SCH (09:05)
[2018-10-01] MEDS: OXYBUTYNIN CHL 5 MG TAB PO SCH ×2 (09:05→21:15)
--- NOTE | 2018-10-01 11:57 | Hospitalist Progress Note ---
Subjective Progress Notes Subjective She was admitted with a septic joint. She has no complaints this morning. She had no acute events overnight. Patient Complains of: Cardiovascular: No: Chest Pain Respiratory: No: Shortness of Breath Physical Exam Vital Signs Date Time Temp Pulse Resp B/P (MAP) Pulse Ox O2 Delivery O2 Flow Rate FiO2 10/01/18 11:29 98.1 74 16 107/60 (76) 93 Room Air 10/01/18 03:15 1.0 Intake and Output 10/01/18 00:00 Intake Total 1065 ml Balance 1065 ml Intake Oral 960 ml IV Total 105 ml # Voids 2 General Appearance: Alert, Awake, No Acute Distress, Afebrile Neuro: No Gross deficits Cardiovascular: Regular Rate and Rhythm Respiratory: No Respiratory Distress, Clear to Auscultation Psych: Alert & Oriented X3, Appropriate Mood & Affect Result Diagram: 09/30/18 0604 09/28/18 1535 Assessment and Plan Problems: (1) Septic arthritis Status: Acute Assessment & Plan: Post explant and wash out, growing E coli from joint aspirate outside hospital. Will cover with ceftriaxone based on susceptibility data from outside hospital. A CT abdomen/pelvis with contrast was performed to evaluate for abdominal source that could cause hematogenous spread. The CT did not show source of infection, but was consistent with liver cirrhosis. Likely source of contamination was E.Coli urine performed in ER 04/24. Cultures from urine on 04/24 are matching current cultures from wound. She had PICC placed 09/30. (2) HTN (hypertension) Status: Chronic Assessment & Plan: Continue chronic HCTZ, losartan. (3) GERD (gastroesophageal reflux disease) Status: Chronic Assessment & Plan: Continue chronic PPI. (4) Jaundice due to hepatitis Status: Chronic Assessment & Plan: Continue chronic lactulose. Exam Sepsis Risk: No Definite Risk Problem Qualifiers (1) Septic arthritis: Septic arthritis location: knee Septic arthritis organism: due to other bacteria Laterality: right Qualified Codes: M00.861 - Arthritis due to other bacteria, right knee (2) HTN (hypertension): Hypertension type: essential hypertension Qualified Codes: I10 - Essential (primary) hypertension CHERI MENDEZ Oct 01, 2018 11:57
[2018-10-01] MEDS: MONTELUKAST SODIUM 10 MG TAB PO SCH (21:14)
[2018-10-01] MEDS: DULoxetine HCL 30 MG CAPCR PO SCH (21:15)
[2018-10-01] MEDS: cefTRIAXone(*) 2 GM VIAL 2 GM in NS(*) 0.9% 100 ML ADDVANT BAG 100 ML IVPB SCH (21:15)
[2018-10-02 00:10] VITALS: BP 116/63
[2018-10-02 03:28] VITALS: BP 142/59
[2018-10-02] MEDS: oxyCODONE HCL 5 MG CAP PO PRN (03:31)
[2018-10-02] MEDS: PANTOPRAZOLE SOD 40 MG TABEC PO SCH (05:34)
[2018-10-02 06:24] LABS: PLATELET COUNT, AUTOMATED 190 K/uL (150-450)
[2018-10-02 07:02] VITALS: BP 113/55
[2018-10-02] MEDS: CELECOXIB 200 MG CAP PO SCH (09:04)
[2018-10-02] MEDS: DIAZEPAM 5 MG TAB PO PRN (09:04)
[2018-10-02] MEDS: HYDROCHLOROTHIAZIDE 25 MG TAB PO SCH (09:04)
[2018-10-02] MEDS: LOSARTAN POTASSIUM 50 MG TAB PO SCH (09:04)
[2018-10-02] MEDS: OXYBUTYNIN CHL 5 MG TAB PO SCH (09:04)
[2018-10-02] MEDS: LACTULOSE 10 GM/15 ML UDCUP PO SCH (09:05)
--- NOTE | 2018-10-02 11:41 | Hospitalist Progress Note ---
Subjective Progress Notes Subjective She was admitted with septic arthritis. She has no complaints this morning. She had no acute events overnight. Patient Complains of: Cardiovascular: No: Chest Pain Respiratory: No: Shortness of Breath Physical Exam Vital Signs Date Time Temp Pulse Resp B/P (MAP) Pulse Ox O2 Delivery O2 Flow Rate FiO2 10/02/18 09:21 Room Air 10/02/18 08:00 92 10/02/18 07:02 98.6 78 16 113/55 (74) Intake and Output 10/02/18 07:00 Intake Total 985 ml Balance 985 ml Intake Oral 880 ml IV Total 105 ml # Voids 4 # Bowel Movements 1 General Appearance: Alert, Awake, No Acute Distress, Afebrile Neuro: No Gross deficits Cardiovascular: Regular Rate and Rhythm Respiratory: No Respiratory Distress, Clear to Auscultation Extremities: Warm, Perfused; No Edema Psych: Alert & Oriented X3, Appropriate Mood & Affect Result Diagram: 10/02/1852810/02/18528 Assessment and Plan Problems: (1) Septic arthritis Status: Acute Assessment & Plan: Post explant and wash out, growing E coli from joint aspirate outside hospital. Will cover with ceftriaxone based on susceptibility data from outside hospital. A CT abdomen/pelvis with contrast was performed to evaluate for abdominal source that could cause hematogenous spread. The CT did not show source of infection, but was consistent with liver cirrhosis. Likely source of contamination was E.Coli urine performed in ER 04/24. Cultures from urine on 04/24 are matching current cultures from wound. She had PICC placed 09/30. (2) HTN (hypertension) Status: Chronic Assessment & Plan: Continue chronic HCTZ, losartan. (3) GERD (gastroesophageal reflux disease) Status: Chronic Assessment & Plan: Continue chronic PPI. (4) Jaundice due to hepatitis Status: Chronic Assessment & Plan: Continue chronic lactulose. Exam Sepsis Risk: No Definite Risk Problem Qualifiers (1) Septic arthritis: Septic arthritis location: knee Septic arthritis organism: due to other bacteria Laterality: right Qualified Codes: M00.861 - Arthritis due to other bacteria, right knee (2) HTN (hypertension): Hypertension type: essential hypertension Qualified Codes: I10 - Essential (primary) hypertension CHERI MENDEZ Oct 02, 2018 11:41
[2018-10-02] MEDS ORDERED: DONE5TAB29 PO (17:36)
[2018-10-03] MEDS ORDERED: ASPIRIN 325 MG ENTERIC COATED PO SCH (09:00)
== END 2018-10-02 10:15 | DRG 467 ==
LOC: OR 01:40 → MED 17:50
PROVIDERS: ADMIT Orthopaedic Surgery; ATTEND Orthopaedic Surgery
PROC: 0SBC0ZZ Excision of Right Knee Joint, Open Approach (ICD-10-PCS; 2018-09-29)
PROC: 02HV33Z Insertion of Infusion Device into Superior Vena Cava, Percutaneous Approach (ICD-10-PCS; 2018-09-29)
PROC: 0SRC0EZ Replacement of Right Knee Joint with Articulating Spacer, Open Approach (ICD-10-PCS; principal; 2018-09-29 12:30)
PROC: 0SPC0JZ Removal of Synthetic Substitute from Right Knee Joint, Open Approach (ICD-10-PCS; 2018-09-29 12:30)
DX: T84.53XA Infection and inflammatory reaction due to internal right knee prosthesis, initial encounter (principal); M00.861 Arthritis due to other bacteria, right knee; I10 Essential (primary) hypertension; K21.9 Gastro-esophageal reflux disease without esophagitis; B96.20 Unspecified Escherichia coli [E. coli] as the cause of diseases classified elsewhere; G47.30 Sleep apnea, unspecified; K75.9 Inflammatory liver disease, unspecified; F32.9 Major depressive disorder, single episode, unspecified; R32 Unspecified urinary incontinence; E78.00 Pure hypercholesterolemia, unspecified; Z96.653 Presence of artificial knee joint, bilateral; Z88.0 Allergy status to penicillin; Z88.1 Allergy status to other antibiotic agents; Z88.8 Allergy status to other drugs, medicaments and biological substances; Z90.710 Acquired absence of both cervix and uterus; Z90.49 Acquired absence of other specified parts of digestive tract
CPT/HCPCS: 36415; 36573; 74177; 81001; 82040; 82247; 82310; 82374; 82435; 82565; 82947; 84075; 84132; 84155; 84295; 84450; 84460; 84520; 85025; 85610; 85651; 86140; 86850; 86900; 86901; 87070; 87073; 87077; 87176; 87186; 87205; 88305; 88331; 93005; 97161; C1713; C1751; C1776; J0696; J1100; J2001; J2250; J2405; J2704; J3010; J3490; J7050; J7060; L1830; Q9967

== ENCOUNTER 2018-10-02 10:16 | Inpatient (IN) | payer MEDICARE, MEDICAID ==
[2018-09-30 16:47] VITALS: Ht 165.1 cm; Wt 102.5 kg
[~2018-10-02] VITALS: Ht 165.1 cm; Wt 102.5 kg
[2018-10-02] MEDS ORDERED: diphenhydrAMINE 25 MG CAP PO PRN (10:33)
[2018-10-02] MEDS ORDERED: BISACODYL 10 MG SUPP PR PRN (10:33)
[2018-10-02] MEDS ORDERED: MAGNESIUM HYDROXIDE* 30ML UDCP PO PRN (10:33)
[2018-10-02] MEDS ORDERED: FLUSH 10 ML SYR IVP PRN (10:33)
[2018-10-02] MEDS ORDERED: ACETAMINOPHEN 325 MG TAB PO PRN (10:35)
[2018-10-02 10:51] VITALS: BP 106/72
--- NOTE | 2018-10-02 11:07 | Consultant Pharmacy Review ---
Coater Operator Insulation Board Review Medication Review Do All Mecications have a Diag: Yes Beers Criteria Medication 2015 Anticholinergics exclude TCAs: Diphenhydramine Benzodiazapines (long acting): Diazepam Disease-Drug Interactions Dementia/Cognitive Impairment: Benzodiazepines History of Falls/Fractures: Benzodiazepines, SSRIs, Opioids Other General Cautions Lexicomp Interaction Analysis A = No known interaction C = Monitor therapy X = Avoid combination B = No action needed D = Consider therapy modification Drugs in this analysis: Acetaminophen; Aspirin; Bisacodyl; CeleBREX; Cozaar; Cymbalta; DiazePAM; DiphenhydrAMINE (Systemic); HydroCHLOROthiazide; Lactulose; Milk of Magnesia [OTC]; Oxybutynin; OxyCONTIN; Protonix; Rocephin [DSC]; Singulair * Drug-Drug Interactions D Aspirin CeleBREX (Nonsteroidal Anti-Inflammatory Agents (AWAD-2 Selective)) Depends on Dose D Bisacodyl Milk of Magnesia [OTC] (Antacids) D DiazePAM (BLOCK LAYER Depressants) OxyCONTIN (OxyCODONE) D DiphenhydrAMINE (Systemic) (BLOCK LAYER Depressants) OxyCONTIN (OxyCODONE) C Aspirin Cymbalta (Serotonin/Norepinephrine Reuptake Inhibitors) C CeleBREX (Nonsteroidal Anti-Inflammatory Agents) Cozaar (Angiotensin II Receptor Blockers) C CeleBREX (Nonsteroidal Anti-Inflammatory Agents) HydroCHLOROthiazide (Thiazide and Thiazide-Like Diuretics) C Cozaar (Blood Pressure Lowering Agents) Cymbalta (DULoxetine) C Cymbalta (DULoxetine) HydroCHLOROthiazide (Blood Pressure Lowering Agents) C Cymbalta (Serotonin Modulators) OxyCONTIN (Opioid Analgesics) C DiazePAM (BLOCK LAYER Depressants) DiphenhydrAMINE (Systemic) (BLOCK LAYER Depressants) C DiphenhydrAMINE (Systemic) (Anticholinergic Agents) HydroCHLOROthiazide (Thiazide and Thiazide-Like Diuretics) C DiphenhydrAMINE (Systemic) (Anticholinergic Agents) Oxybutynin (Anticholi nergic Agents) C HydroCHLOROthiazide (Diuretics) OxyCONTIN (Opioid Analgesics) C HydroCHLOROthiazide (Thiazide and Thiazide-Like Diuretics) Oxybutynin (Anticholinergic Agents) C Lactulose Milk of Magnesia [OTC] (Magnesium Hydroxide) C Oxybutynin (Anticholinergic Agents) OxyCONTIN (Opioid Analgesics) B Acetaminophen OxyCONTIN (Opioid Analgesics) B Aspirin (Salicylates) Milk of Magnesia [OTC] (Antacids) Depends on Duration B Aspirin (Salicylates) Singulair (Leukotriene Receptor Antagonists) B CeleBREX (Nonsteroidal Anti-Inflammatory Agents) Milk of Magnesia [OTC] (Antacids) B DiazePAM Milk of Magnesia [OTC] (Antacids) Pneumococcal Vaccine HX Pneumo Vac ([id number]): No HX Pneumo Vac (Pneumovax): No Comments Regarding the Review Patient is a candidate to receive both the influenza vaccine and the Prevnar 13 vaccine. Monitor for falls and sedation due to diphenhydramine, Oxy IR , and valium prn orders. MARILYN TORREZ Oct 02, 2018 11:07
--- NOTE | 2018-10-02 11:42 | ECF H&P BLANK ---
F H&P UPDATE History of Present Illness Requesting Physician Dr Salvador Reason for Consult Management chronic comorbidities Chief Complaint post knee explant History of Present Illness 67F with TKA which has become infected. Explanted today with Abx impregnated spacer placed, tolerated procedure well per operative report. Ecoli growing in knee aspirate. PMHx significant for GERD, HTN, depression, urinary incontinence, hepatitis. History Problems: (1) HTN (hypertension) Status: Chronic (2) Hypercholesterolemia Status: Chronic (3) GERD (gastroesophageal reflux disease) Status: Chronic Home Meds Reported Medications Lactulose (LACTULOSE) 10 Gm/15 Ml Solution, 20 GM PO BID 09/28/18 Losartan Potassium (LOSARTAN POTASSIUM) 50 Mg Tablet, 50 MG PO QDAY 11/18/17 Aspirin (ASPIR 81) 81 Mg Tablet.dr, 81 MG PO QDAY, TAB 04/29/16 Duloxetine Hcl (CYMBALTA) 60 Mg Capsule.dr, 60 MG PO QDAY, CAP 04/29/16 Omeprazole (OMEPRAZOLE) 40 Mg Capsule.dr, 40 MG PO QDAY, CAP 05/24/15 Montelukast Sodium (SINGULAIR) 10 Mg Tablet, 1 TAB PO QDAY, TAB 02/28/15 Fluticasone Prop 50 Mcg Ns (FLONASE 50 MCG NS) 16 Gm [place].susp, 2 SPRAYS QDAY, #48 08/08/14 Hydrochlorothiazide (HYDROCHLOROTHIAZIDE) 25 Mg Tablet, 1 TAB PO QDAY TAKE ONE TABLET BY MOUTH EVERY DAY 08/08/14 Oxybutynin Chloride (Ditropan) 5 Mg Tab, 5 MG PO BID 12/17/11 Discontinued Reported Medications Ibuprofen (MOTRIN IB) 200 Mg Tablet, 1 TAB PO QDAY PRN for PAIN 11/18/17 Cholecalciferol (Vitamin D3) (VITAMIN D3) 1,000 Unit Tablet, 2000 UNIT PO QDAY, TAB 11/18/17 Allergies: Coded Allergies: clarithromycin (Verified Allergy, Intermediate, THROAT ITCHING, 06/12/18) meperidine (Verified Allergy, Intermediate, HALLUCINATIONS, 06/12/18) amoxicillin (Verified Allergy, Unknown, 06/12/18) clavulanic acid (Verified Allergy, Unknown, 06/12/18) Patient History: FH: HTN (hypertension) FATHER FH: ovarian cancer MOTHER FH: thyroid disease MOTHER BROTHER OR SISTER History of insulin dependent diabetes mellitus in sibling MOTHER BROTHER OR SISTER Hypoglycemia BROTHER OR SISTER Hx Smoking: No Smoking Status: Never Smoker Exposure to Second Hand Smoke?: No Caffeine Intake: Coffee, Tea Caffeine/Cups Per Day: 1/DAY, 1/DAY Hx Alcohol Use: Yes (rarely) Hx Substance Use Disorder: No Social Drug Use: Never Review of Systems All Systems Reviewed/Normal: Yes, Except as Noted Constitutional: No Fever, No Chills Respiratory: No Shortness of Breath Exam Vital Signs Vital Signs Date Time Temp Pulse Resp B/P (MAP) Pulse Ox O2 Delivery O2 Flow Rate FiO2 09/29/18 19:30 80 91/58 (69) 98 09/29/18 17:50 97.8 16 Nasal Cannula 2.0 General Appearance: No Acute Distress, Afebrile Neuro: No Gross deficits ENT: Normal Cardiovascular: Normal Rhythm & Peripheral Pulses Respiratory: No Respiratory Distress GI: Abd Soft and Non-Tender Extremities: Soft and Non Tender, Warm, Pulses, Perfused Medical Decision Making Data Points Result Diagram: 09/28/18 1535 09/28/18 1535 Assessment and Plan Problems: (1) Septic arthritis Status: Acute Assessment & Plan: Post explant and wash out, growing E coli from joint aspirate outside hospital. Will cover with ceftriaxone based on susceptibility data from outside hospital. Given odd pathogen isolated for location will get CT abdomen/pelvis with contrast to evaluate for abdominal source that could cause hematogenous spread. (2) HTN (hypertension) Status: Chronic Assessment & Plan: Continue chronic HCTZ, losartan. (3) GERD (gastroesophageal reflux disease) Status: Chronic Assessment & Plan: Continue chronic PPI. (4) Jaundice due to hepatitis Status: Chronic Assessment & Plan: Continue chronic lactulose. Venous Thromboembolism Antithrombotics Is Pt On Any Antithrombotics?: Yes SHIRLENE DAVALOS DO Sep 29, 2018 22:17 <Electronically signed by SHIRLENE OLGUIN DO> D/ 16 16 16 RONNIE/MARBELLA CC: The above acute care issues are resolving and/or stable. Patient requires retirement and/or skilled rehabilitation and is ready for admission to [facility]. Any change in condition is described below. CHERI MENDEZ Oct 02, 2018 11:42
[2018-10-02] MEDS: oxyCODONE HCL 5 MG CAP PO PRN ×2 (12:57→21:16)
--- NOTE | 2018-10-02 14:36 | OT ECF NOTE ---
Type of Note: Initial Note Primary Medical Diagnosis: Generalized weakness s/p I&D of right knee. *TTWB R) LE* *Knee immobilizer donned for all mobility* Occupational Therapy Evaluation Date: 10/02/18 SUBJECTIVE: Prior Hospitalization: DOS: 09/29/18. [facility] 09/29/18 thru 10/02/18 Prior Level of Function: Independent with all ADLs/IADLs Prior Living Status: Single level house, Alone Community Services: Independent, No known needs Home Accessibility: Stairs with rails All needs on one level Tub/shower combination Equipment Owned: Cane, toilet textile bag sewer Medical Complications/Past Medical History: GERD, HTN, Depression, Urinary incontinence. Please refer to EMR for further details. Psychosocial Support: Family locally Pain Scale (0-10): Pt reporting significant pain in R) LE during evaluation. Ice and positioning offered. OBJECTIVE: Strength: MMT: Right Left Shoulder Flexion WFL WFL Elbow Flexion WFL WFL Wrist Extension WFL WFL Adjudication Specialist WFL WFL (5= normal, 4= good, 3= fair, 2= poor, 1= trace) ROM: Both upper extremities, WFL Sensation: No paraesthesia reported Functional Transfer: Assistive Device: Front wheeled walker, Gait belt Transfer Ability: Verbal cues,CGA ADL: Upper body dressing: Assistive device: Upper body dressing ability: N/T Lower body dressing: Assistive device: Lower body dressing ability: Minimum assistance Toileting: Assistive device: Toileting ability: N/T Grooming/hygiene: Assistive device: Grooming ability: N/T Bathing: Assistive device: Bathing ability: N/T Standardized Assessment: Breezy Index of Activities of Daily Livin/20 upon initial evaluation (10/02/18). ASSESSMENT: Sherie presents to [facility] with decreased (I) and tolerance for ADLs/IADLs s/p R) Knee I&D and partial weight bearing status. She will benefit from skilled OT services to improve activity tolerance and optimize (I) for ADLs/IADLs prior to discharge home alone. Problem List/Current Limitations: Pain Decreased WB Decreased activity tolerance Short Term Goals: 1) Pt will be Mod (I) toilet task. 2) Pt will be Mod (I) grooming/hygiene. 3) Pt will be Mod (I) UB/LB dressing. 4) Pt will be SBA shower task. 5) Pt will be Mod (I) light meal prep task. 6) Pt Breezy Index of ADLs will improve by 2 points. Local Area Network Systems Adminstrator Goals: Return home with services Patient Goals: "Dance" Rehabilitation Prognosis: Good Barriers to Discharge: Pain, Weight bearing status PLAN: The patient will benefit from skilled occupational therapy services 5 times per week for 2 weeks including: Ther ex ADL training Safety training Ther act IADL training Transfer training Adaptive equip training Bed mobility Energy conservation Thank you for this referral. If you have any questions, concerns, or comments about this report or plan, please contact me at . Lashay Hilton MS, OTR/L Occupational Therapist [place]
[2018-10-02 15:50] VITALS: BP 98/53
--- NOTE | 2018-10-02 16:35 | Antimicrobial Stewardship ---
Antimicrobial Stewardship Empiricly appropriate: Yes (Ceftriaxone) Significant PMH: Yes (PJI) Support empiric regimen: Yes Comment 67 yo F with PJI s/p spacer placement and joint removal, growing e.coli from cultures. Approriate Cultures done: Yes Gram stain show Microbs: Yes Organism identified: Yes (E.coli sensitive to ceftriaxone) IV to PO Opportunity: No Determine cumulative duration: Started on 09/29/18- Day 4 Determine standard duration: 4-6 weeks of antibiotics, minimum of two weeks IV antibiotics Comment Plan to treat with IV Ceftriaxone 2g IV Q24h x 4-6 weeks, may consider oral quinolone after a minimum of two weeks of IV ceftriaxone. Will follow closely. Dr. Khan has been in contact with ID from [facility]. Leydi Gonsales, PharmD, OP LEYDI GONSALES Oct 02, 2018 16:35
--- NOTE | 2018-10-02 17:02 | NUR ---
Physical Therapy Impression Pt able to stand from a chair and ambulate 50' with RW, CGA, and good compliance with PWB. Physical Therapy Goals 1. Mod I bed mobility. 2. Mod I transfers. 3. Mod I gait maintaining PWB x 150' with RW. 4. Ascend/descend 2 stairs maintaining PWB SBA. Patient's Goals
--- NOTE | 2018-10-02 17:07 | PT ECF NOTE ---
Type of Note: Initial Note Primary Medical Diagnosis: s/p I&D R knee Physical Therapy Evaluation Date: 10/02/18 PRECAUTIONS: TTWB/PWB R LE; knee immobilizer on when up ambulating SUBJECTIVE: Prior Hospitalization: [facility] acute 09/29/18-10/02/18 for I&D Prior Level of Function: Independent with functional mobility, ADLs, and IADLs Prior Living Status: Single level house, Alone Community Services: No known needs Home Accessibility: Stairs with rails Equipment Owned: Front wheeled walker Medical Complications/Past Medical History: See Adfaces Psychosocial Support: Supportive family Pain Scale (0-10): painful R knee, no number assigned OBJECTIVE: Strength: WFL L LE ROM: (please note any abnormalities) R LE in knee immobilizer Bed Mobility: Not observed Transfers: CGA Assistive Device: Front wheeled walker Gait: CGA x50' Assistive device: Front wheeled walker ASSESSMENT: Pt presents with decreased independence with functional mobility s/p R knee I&D for infection. Pt will benefit from skilled PT for functional mobility training in order to safely return to living independently. Problem List/Current Limitations: Pain, Decreased WB, Decreased activity tolerated, Decreased strength, Generalized weakness Short Term Goals: 1. Mod I bed mobility. 2. Mod I transfers. 3. Mod I gait maintaining PWB x 150' with RW. 4. Ascend/descend 2 stairs maintaining PWB SBA. Mcc Goals: Return home Patient Goals: Return home Rehabilitation Prognosis: Good Barriers for Discharge: none identified PLAN: The patient will benefit from skilled physical therapy services 5 times per week for 2 weeks including: Therapeutic Exercise Therapeutic Activities Transfer Training Gait Training Stair Training Manual Therapy ADL's Safety Training Neuromuscular Re-educ. Pt/Caregiver Training Bed Mobility Thank you for this referral. If you have any questions, concerns, or comments about this report or plan, please contact me at . Ambar Iraheta, PT, DPT, GCS MTDD
[2018-10-02] MEDS ORDERED: DONE5TAB29 PO (17:36)
[2018-10-02] MEDS: CELECOXIB 200 MG CAP PO SCH (17:49)
[2018-10-02] MEDS: DIAZEPAM 5 MG TAB PO PRN (17:49)
[2018-10-02] MEDS ORDERED: NS(*) 0.9% 250 ML BAG 250 ML in NS(*) 0.9% 250 ML BAG 250 ML IV PRN (20:55)
[2018-10-02] MEDS ORDERED: NS(*) 0.9% 500 ML BAG 500 ML ONE (20:56)
[2018-10-02] MEDS: LACTULOSE 10 GM/15 ML UDCUP PO SCH ×2 (21:00→21:16)
[2018-10-02] MEDS: MONTELUKAST SODIUM 10 MG TAB PO SCH (21:16)
[2018-10-02] MEDS: DULoxetine HCL 30 MG CAPCR PO SCH (21:16)
[2018-10-02] MEDS: OXYBUTYNIN CHL 5 MG TAB PO SCH (21:16)
[2018-10-02] MEDS: cefTRIAXone(*) 2 GM VIAL 2 GM in NS(*) 0.9% 100 ML ADDVANT BAG 100 ML IVPB SCH (21:19)
[2018-10-03] MEDS: DIAZEPAM 5 MG TAB PO PRN (02:18)
[2018-10-03] MEDS: PANTOPRAZOLE SOD 40 MG TABEC PO SCH (06:00)
[2018-10-03] MEDS: oxyCODONE HCL 5 MG CAP PO PRN ×2 (06:29→14:57)
--- NOTE | 2018-10-03 08:35 | Medical Nutrition Therapy ---
Nutrition Anthropometrics Height (Inches): 65.00 Height (Calculated Centimeters: 165.825033 Weight (Pounds): 208 Weight (Calculated Kilograms): 94.347 Ezequiel Nutrition Score: Adequate Ezequiel Nutrition Risk Score: 16 Dietary Referral Nutrition Risk Factors: Nutrition Risk Comment: Physical Findings Physical Appearance: Obese BMI 30-39 Skin Appearance Skin Appearance: Edema Edema Location Modifier: Edema Location: Type of Edema: Degree of Edema: Gastrointestinal Symptoms GI Symtoms: Tube Present: Bowel Sounds: Recent Bowel Pattern: Stool Characteristics: Nutritional Diagnosis Nutritional Risk Acuity 2: Sepsis Nutritional Risk Acuity 4: Good Appetite Past Medical History: HX of GERD, HTN, OSP, depression, urinary incontinence, hypercholesterolemia, hepatitis with jaundice Nutritional Acuity: 2-Moderate Nutrition Diagnosis: Increased Nutrient Needs Nutrition Etiology: Physiological Causes Nutrition Problem/Etiology/Sym: Increaed nutrient needs as relatead to physiological causes as evidenced by septic arthritis, and recent surgery. Energy Requirement: 1940 (M-St Jeor X 1.1 (TEF) X1.2 (activity factor)) Adjusted Energy Requirement Re: 1440 (-500 for 1# wt loss/wk) Protein Requirement: 94 (1.0g protein/ kg, elevated for healing) Fluid Requirement: 2350 (25mL/kg) Diet Type: Regular Nutrition Intervention: Cont diet as ordered, Encourage intake Drug: Diuretics Nutrition Monitoring & Eval Nutrition Goals: Eat 50-100% Meal Nutritional Goals Comment: Possible K supplementation RD Patient Assessment Time: [address] Assessment Type: RD Assessment Patient Nutrition Acuity: 2-Moderate Follow Up Date: Oct 06, 2018 Nutritional Comment: Pt admitted after TKA with infection. Dx with septic arthritis. Hx of GERD, HTN, depression, urinary incontinence, hepatitis with jaundice, and hypercholesterolemia. Currently on MARKIE with 100% intakes. No labs to report at this time. Pt on hydrochlorothiazide, may recommend K supplement. -RM QUIROZ Oct 03, 2018 08:35
[2018-10-03] MEDS: LACTULOSE 10 GM/15 ML UDCUP PO SCH ×3 (08:47→21:00)
[2018-10-03] MEDS: CELECOXIB 200 MG CAP PO SCH ×2 (08:47→18:18)
[2018-10-03] MEDS: OXYBUTYNIN CHL 5 MG TAB PO SCH ×2 (08:47→20:58)
[2018-10-03] MEDS: ASPIRIN 325 MG ENTERIC COATED PO SCH (08:47)
[2018-10-03 08:49] VITALS: BP 108/66
[2018-10-03] MEDS: HYDROCHLOROTHIAZIDE 25 MG TAB PO SCH (09:00)
[2018-10-03] MEDS: LOSARTAN POTASSIUM 50 MG TAB PO SCH (09:00)
[2018-10-03 15:25] VITALS: BP 118/69
[2018-10-03] MEDS: FLUTICASONE PROP 0.05% 16 GM SCH (20:57)
[2018-10-03] MEDS: DULoxetine HCL 30 MG CAPCR PO SCH (20:57)
[2018-10-03] MEDS: MONTELUKAST SODIUM 10 MG TAB PO SCH (20:58)
[2018-10-03] MEDS: cefTRIAXone(*) 2 GM VIAL 2 GM in NS(*) 0.9% 100 ML ADDVANT BAG 100 ML IVPB SCH (21:19)
[2018-10-04] MEDS: PANTOPRAZOLE SOD 40 MG TABEC PO SCH (05:54)
[2018-10-04 07:55] VITALS: BP 101/55
[2018-10-04] MEDS: CELECOXIB 200 MG CAP PO SCH ×2 (08:44→17:45)
[2018-10-04] MEDS: ASPIRIN 325 MG ENTERIC COATED PO SCH (08:44)
[2018-10-04] MEDS: OXYBUTYNIN CHL 5 MG TAB PO SCH ×2 (08:44→21:32)
[2018-10-04] MEDS: HYDROCHLOROTHIAZIDE 25 MG TAB PO SCH (08:45)
[2018-10-04] MEDS: LOSARTAN POTASSIUM 50 MG TAB PO SCH (08:45)
[2018-10-04] MEDS: LACTULOSE 10 GM/15 ML UDCUP PO SCH ×2 (08:46→21:00)
[2018-10-04] MEDS: DIAZEPAM 5 MG TAB PO PRN (08:53)
[2018-10-04] MEDS ORDERED: ALTEPLASE RECOMB 2 MG VIAL IVP PRN (12:55)
[2018-10-04 15:00] VITALS: BP 113/65
[2018-10-04] MEDS: DULoxetine HCL 30 MG CAPCR PO SCH (21:31)
[2018-10-04] MEDS: cefTRIAXone(*) 2 GM VIAL 2 GM in NS(*) 0.9% 100 ML ADDVANT BAG 100 ML IVPB SCH (21:31)
[2018-10-04] MEDS: FLUTICASONE PROP 0.05% 16 GM SCH (21:32)
[2018-10-04] MEDS: oxyCODONE HCL 5 MG CAP PO PRN (21:32)
[2018-10-04] MEDS: MONTELUKAST SODIUM 10 MG TAB PO SCH (21:32)
[2018-10-05] MEDS: PANTOPRAZOLE SOD 40 MG TABEC PO SCH (05:39)
[2018-10-05] MEDS: OXYBUTYNIN CHL 5 MG TAB PO SCH ×2 (08:55→20:53)
[2018-10-05] MEDS: ASPIRIN 325 MG ENTERIC COATED PO SCH (08:55)
[2018-10-05] MEDS: HYDROCHLOROTHIAZIDE 25 MG TAB PO SCH (08:55)
[2018-10-05] MEDS: LACTULOSE 10 GM/15 ML UDCUP PO SCH ×2 (08:55→20:53)
[2018-10-05] MEDS: CELECOXIB 200 MG CAP PO SCH ×2 (08:55→17:33)
[2018-10-05] MEDS: oxyCODONE HCL 5 MG CAP PO PRN (08:56)
[2018-10-05 09:22] VITALS: BP 129/60
[2018-10-05] MEDS: LOSARTAN POTASSIUM 50 MG TAB PO SCH (09:29)
--- NOTE | 2018-10-05 12:03 | NUR ---
Physical Therapy Impression Pt does well maintaining PWB of her R LE with short bout of ambulation from chair to bed in room. Min A for LE into bed. Supine ther. ex for LE strengthening. Cont. with POC. Physical Therapy Goals 1. Mod I bed mobility. 2. Mod I transfers. 3. Mod I gait maintaining PWB x 150' with RW. 4. Ascend/descend 2 stairs maintaining PWB SBA. Patient's Goals
--- NOTE | 2018-10-05 14:12 | NUR ---
Occupational Therapy Impression Min A to manage R LE supine to sit. SBA ambulation x100ft with RW. Good adherence to TTWB status. Set-up UB dressing. (I) threading LB clothing (incld. socks), SBA puulling clothing over hips. Min A to manage brace. Introduced UB ther ex HEP. Continue POC. Occupational Therapy Goals 1) Pt will be Mod (I) toilet task. 2) Pt will be Mod (I) grooming/hygiene. 3) Pt will be Mod (I) UB/LB dressing. 4) Pt will be SBA shower task. 5) Pt will be Mod (I) light meal prep task. 6) Pt Breezy Index of ADLs will improve by 2 points. Patient's Goal
[2018-10-05 16:10] VITALS: BP 124/71
[2018-10-05] MEDS: cefTRIAXone(*) 2 GM VIAL 2 GM in NS(*) 0.9% 100 ML ADDVANT BAG 100 ML IVPB SCH (20:52)
[2018-10-05] MEDS: FLUTICASONE PROP 0.05% 16 GM SCH (20:52)
[2018-10-05] MEDS: MONTELUKAST SODIUM 10 MG TAB PO SCH (20:53)
[2018-10-05] MEDS: DULoxetine HCL 30 MG CAPCR PO SCH (20:53)
[2018-10-06] MEDS: PANTOPRAZOLE SOD 40 MG TABEC PO SCH (05:35)
[2018-10-06] MEDS: oxyCODONE HCL 5 MG CAP PO PRN ×2 (05:35→16:50)
[2018-10-06 07:35] VITALS: BP_SYST 45
[2018-10-06] MEDS: OXYBUTYNIN CHL 5 MG TAB PO SCH ×2 (08:46→21:04)
[2018-10-06] MEDS: ASPIRIN 325 MG ENTERIC COATED PO SCH (08:46)
[2018-10-06] MEDS: CELECOXIB 200 MG CAP PO SCH ×2 (08:46→16:49)
[2018-10-06] MEDS: LOSARTAN POTASSIUM 50 MG TAB PO SCH (08:46)
[2018-10-06] MEDS: HYDROCHLOROTHIAZIDE 25 MG TAB PO SCH (08:46)
[2018-10-06] MEDS: LACTULOSE 10 GM/15 ML UDCUP PO SCH ×2 (08:47→21:00)
--- NOTE | 2018-10-06 08:59 | Medical Nutrition Therapy ---
Nutrition Anthropometrics Height (Inches): 65.00 Height (Calculated Centimeters: 165.418543 Weight (Pounds): 208 Weight (Calculated Kilograms): 94.347 Ezequiel Nutrition Score: Adequate Ezequiel Nutrition Risk Score: 16 Dietary Referral Nutrition Risk Factors: Nutrition Risk Comment: Physical Findings Physical Appearance: Obese BMI 30-39 Skin Appearance Skin Appearance: Edema Edema Location Modifier: Edema Location: Type of Edema: Degree of Edema: Gastrointestinal Symptoms GI Symtoms: Tube Present: Bowel Sounds: Recent Bowel Pattern: Stool Characteristics: Nutritional Diagnosis Nutritional Risk Acuity 2: Sepsis Nutritional Risk Acuity 4: Good Appetite Past Medical History: HX of GERD, HTN, OSP, depression, urinary incontinence, hypercholesterolemia, hepatitis with jaundice Nutritional Acuity: 2-Moderate Nutrition Diagnosis: Increased Nutrient Needs Nutrition Etiology: Physiological Causes Nutrition Problem/Etiology/Sym: Increased nutrient needs as relatead to physiological causes as evidenced by septic arthritis, and recent surgery. Energy Requirement: 1940 (M-St Jeor X 1.1 (TEF) X1.2 (activity factor)) Adjusted Energy Requirement Re: 1440 (-500 for 1# wt loss/wk) Protein Requirement: 94 (1.0g protein/ kg, elevated for healing) Fluid Requirement: 2350 (25mL/kg) Diet Type: Regular Nutrition Intervention: Cont diet as ordered, Encourage intake Drug: Diuretics Nutrition Monitoring & Eval Nutrition Goals: Eat 75-100% Meal Nutrition Follow-Up: Good Intake RD Patient Assessment Time: [address] Assessment Type: RD Re-Assessment Patient Nutrition Acuity: 2-Moderate Follow Up Date: Oct 13, 2018 Nutritional Comment: Pt admitted after TKA with infection. Dx with septic arthritis. Hx of GERD, HTN, depression, urinary incontinence, hepatitis with jaundice, and hypercholesterolemia. Currently on MARKIE with 100% intakes. No labs to report at this time. Pt on hydrochlorothiazide, may recommend K supplement. -AKG 2/5 Pt cont on regular diet, eating 75-100% of meals. Pt on K+ depleting duiretic, K+ is WNR at 4.5. Alb low at 2.3, H?H low at 9.9/28.7, CPR elevated at 6.7. Will cont to monitor and encourage intake. SAMEER CLARK Oct 06, 2018 08:59
--- NOTE | 2018-10-06 09:30 | NUR ---
Physical Therapy Impression Pt reports that she feels like she "over did it yesterday" with increased pain and discomfort reported today. Agreeable to therapy session .PT instructed patient in donning of LE immobilizer while supine in bed. PT provided verbal cues and Anastasia for donning of brace with instruction on proper placement and correct amount of tightening. Pt completed supine to sit with SBA and use of leg copying machine repairer to prevent SLR on R) LE. Pt reported increased pain when seated at EOB with R) LE in a dependent position. She reported this improved with adjustment of brace and initiation of ambulation. Good sequencing and safety demonstrated with transfers with maintenance of PWB of R) LE. Pt tolerated ambulation a 65' with use of RW and CGA. Pt seated in recliner with R) LE elevated at end of session. Physical Therapy Goals 1. Mod I bed mobility. 2. Mod I transfers. 3. Mod I gait maintaining PWB x 150' with RW. 4. Ascend/descend 2 stairs maintaining PWB SBA. Patient's Goals
--- NOTE | 2018-10-06 11:52 | NUR ---
Occupational Therapy Impression Reviewed UB HEP to improve bilateral UE strength for engagement in ADLs/IADLs. (I) donning/doffing socks. Pt refusing further ADLs/mobility. Reporting significant pain and "may have overdone it yesterday." Ice and positioning offered. Continue POC. Occupational Therapy Goals 1) Pt will be Mod (I) toilet task. 2) Pt will be Mod (I) grooming/hygiene. 3) Pt will be Mod (I) UB/LB dressing. 4) Pt will be SBA shower task. 5) Pt will be Mod (I) light meal prep task. 6) Pt Breezy Index of ADLs will improve by 2 points. Patient's Goal
[2018-10-06 17:20] VITALS: BP 127/62
[2018-10-06] MEDS: MONTELUKAST SODIUM 10 MG TAB PO SCH (21:00)
[2018-10-06] MEDS: FLUTICASONE PROP 0.05% 16 GM SCH (21:03)
[2018-10-06] MEDS: cefTRIAXone(*) 2 GM VIAL 2 GM in NS(*) 0.9% 100 ML ADDVANT BAG 100 ML IVPB SCH (21:03)
[2018-10-06] MEDS: DULoxetine HCL 30 MG CAPCR PO SCH (21:04)
[2018-10-07] MEDS: PANTOPRAZOLE SOD 40 MG TABEC PO SCH (05:32)
[2018-10-07] MEDS: oxyCODONE HCL 5 MG CAP PO PRN ×3 (05:32→20:31)
[2018-10-07 07:21] LABS: PLATELET COUNT, AUTOMATED 164 K/uL (150-450)
[2018-10-07 07:50] VITALS: BP 126/57
[2018-10-07] MEDS: ASPIRIN 325 MG ENTERIC COATED PO SCH (09:00)
[2018-10-07] MEDS: LACTULOSE 10 GM/15 ML UDCUP PO SCH ×2 (09:00→20:32)
[2018-10-07] MEDS: CELECOXIB 200 MG CAP PO SCH ×2 (09:00→16:47)
[2018-10-07] MEDS: OXYBUTYNIN CHL 5 MG TAB PO SCH ×2 (09:01→20:31)
[2018-10-07] MEDS: HYDROCHLOROTHIAZIDE 25 MG TAB PO SCH (09:01)
[2018-10-07] MEDS: LOSARTAN POTASSIUM 50 MG TAB PO SCH (09:01)
--- NOTE | 2018-10-07 12:40 | NUR ---
Physical Therapy Impression Pt tolerated ambulation x 40', 20', 30', 45', 45' with 4 sitting rest breaks. Pt requires cues to maintain TTWB and to use UE's. Sitting rests required, as UE's begin to fatigue. Pt would benefit from LE strengthening activities in standing with weight bearing on L) LE, to include hip flexion/extension and abduction. Physical Therapy Goals 1. Mod I bed mobility. 2. Mod I transfers. 3. Mod I gait maintaining PWB x 150' with RW. 4. Ascend/descend 2 stairs maintaining PWB SBA. Patient's Goals
--- NOTE | 2018-10-07 14:41 | NUR ---
Occupational Therapy Impression CGA ambulation with RW. Occasional v/c's to maintain WB status as pt fatigues. SBA toileting. SBA hand hygiene sink front with use bilateral hands, maintaining WB status. Mod (I) LB dressing with automotive tire testing supervisor-including brace. Mod (I) sit to supine bed mobility. Continue POC. Occupational Therapy Goals 1) Pt will be Mod (I) toilet task. 2) Pt will be Mod (I) grooming/hygiene. 3) Pt will be Mod (I) UB/LB dressing. 4) Pt will be SBA shower task. 5) Pt will be Mod (I) light meal prep task. 6) Pt Breezy Index of ADLs will improve by 2 points. Patient's Goal
--- NOTE | 2018-10-07 16:07 | Hospitalist Progress Note ---
Subjective Progress Notes Subjective She was admitted with a septic arthritis. She has no complaints this afternoon. Reports she has been doing well with therapy. Patient Complains of: Cardiovascular: No: Chest Pain Respiratory: No: Shortness of Breath Physical Exam Vital Signs Date Time Temp Pulse Resp B/P (MAP) Pulse Ox O2 Delivery O2 Flow Rate FiO2 10/07/18 09:02 98 Nasal Cannula 2.0 10/07/18 07:50 97.9 80 18 126/57 (80) Intake and Output 10/07/18 00:00 Intake Total 720 ml Balance 720 ml Intake Oral 720 ml # Voids 3 # Bowel Movements 3 General Appearance: Alert, Awake, No Acute Distress, Afebrile Neuro: No Gross deficits Cardiovascular: Regular Rate and Rhythm Respiratory: No Respiratory Distress, Clear to Auscultation GI: Soft and Non-Tender Psych: Alert & Oriented X3, Appropriate Mood & Affect Result Diagram: 10/07/1843 10/07/18 06 Assessment and Plan Problems: (1) Septic arthritis Status: Acute Assessment & Plan: Post explant and wash out, growing E coli from joint aspirate outside hospital. She does have Abx impregnated spacer placed to her right knee. Will cover with ceftriaxone based on susceptibility data from outside hospital. She had PICC placed 09/30. She will require 6 weeks IV antibiotics. Likely source of contamination was E.Coli urine performed in ER 04/24. Cultures from urine on 04/24 are matching current cultures from wound. (2) HTN (hypertension) Status: Chronic Assessment & Plan: Continue chronic HCTZ, losartan. (3) GERD (gastroesophageal reflux disease) Status: Chronic Assessment & Plan: Continue chronic PPI. (4) Hepatitis Status: Chronic Assessment & Plan: She does have esophageal varices, portal hypertension per CT report done 09/29/18. She does have liver specialist. Continue chronic lactulose. Problem Qualifiers (1) HTN (hypertension): Hypertension type: essential hypertension Qualified Codes: I10 - Essential (primary) hypertension CHERI MENDEZ Oct 07, 2018 16:07
[2018-10-07 20:20] VITALS: BP 141/57
[2018-10-07] MEDS: cefTRIAXone(*) 2 GM VIAL 2 GM in NS(*) 0.9% 100 ML ADDVANT BAG 100 ML IVPB SCH (20:31)
[2018-10-07] MEDS: DULoxetine HCL 30 MG CAPCR PO SCH (20:31)
[2018-10-07] MEDS: MONTELUKAST SODIUM 10 MG TAB PO SCH (20:31)
[2018-10-07] MEDS: FLUTICASONE PROP 0.05% 16 GM SCH (20:31)
[2018-10-08] MEDS: oxyCODONE HCL 5 MG CAP PO PRN ×3 (05:34→23:45)
[2018-10-08] MEDS: PANTOPRAZOLE SOD 40 MG TABEC PO SCH (05:34)
[2018-10-08 08:00] VITALS: BP 103/53
[2018-10-08] MEDS: LOSARTAN POTASSIUM 50 MG TAB PO SCH (09:00)
[2018-10-08] MEDS: HYDROCHLOROTHIAZIDE 25 MG TAB PO SCH (09:00)
[2018-10-08] MEDS: ASPIRIN 325 MG ENTERIC COATED PO SCH (09:21)
[2018-10-08] MEDS: OXYBUTYNIN CHL 5 MG TAB PO SCH ×2 (09:21→20:19)
[2018-10-08] MEDS: CELECOXIB 200 MG CAP PO SCH ×2 (09:21→16:51)
[2018-10-08] MEDS: LACTULOSE 10 GM/15 ML UDCUP PO SCH ×2 (09:21→21:00)
--- NOTE | 2018-10-08 10:07 | NUR ---
Physical Therapy Impression Pt cleared per Dr. Khan for ther-ex progression on R) LE as tolerated. Emphasis on quad sets on R) LE, as pt demonstrates diminished quad activation as compared to L) side. PT instructed pt to complete quad sets throughout the day as tolerated. PT assisted patient in heel slides on R) LE with minimal ROM achieved. PT instruction for standing LE ther-ex on L) LE with R) LE completing hip abduction and hip extension, pt reports slight discomfort of L) knee during SLS for ther-ex. Pt demonstrates SBA with bed mobility with HOB raised and use of bed rail as well as SBA for transfers. Ambulation x65' with RW and CGA. Pt and PT discussed feasibility of the pt visiting her father in [place], pt verbalized understanding that she will need the assistance of another person if she plans to make the trip. Physical Therapy Goals 1. Mod I bed mobility. 2. Mod I transfers. 3. Mod I gait maintaining PWB x 150' with RW. 4. Ascend/descend 2 stairs maintaining PWB SBA. Patient's Goals
--- NOTE | 2018-10-08 12:39 | NUR ---
5-day MDS completed with pt. C: 14, D: 7, E: no concerns, Q: pt plans to return to community, no referrals made yet but may be needed. Pt reports she has diagnosis of depression, takes medications and sees counselor weekly for this. Pt reporting no needs regarding her depression while in hospital, plans to continue with current plan of care at [facility].
--- NOTE | 2018-10-08 16:16 | NUR ---
Occupational Therapy Impression SBA ambulation household distance with RW. Occasional v/c's to maintain WB status as pt fatigues. (I) donning/doffing brace. Mod (I) toileting. SBA dynamic balance task in front of closet. Pt progressing well toward nearing OT goals. Educated pt on POC and possible discharge from OT next week. Occupational Therapy Goals 1) Pt will be Mod (I) toilet task. 2) Pt will be Mod (I) grooming/hygiene. 3) Pt will be Mod (I) UB/LB dressing. 4) Pt will be SBA shower task. 5) Pt will be Mod (I) light meal prep task. 6) Pt Breezy Index of ADLs will improve by 2 points. Patient's Goal
--- NOTE | 2018-10-08 16:16 | NUR ---
Occupational Therapy Impression CGA ambulation with RW. Occasional v/c's to maintain WB status as pt fatigues. SBA toileting. SBA hand hygiene sink front with use bilateral hands, maintaining WB status. Mod (I) LB dressing with benefit specialist-including brace. Mod (I) sit to supine bed mobility. Continue POC. Occupational Therapy Goals 1) Pt will be Mod (I) toilet task. 2) Pt will be Mod (I) grooming/hygiene. 3) Pt will be Mod (I) UB/LB dressing. 4) Pt will be SBA shower task. 5) Pt will be Mod (I) light meal prep task. 6) Pt Breezy Index of ADLs will improve by 2 points. Patient's Goal
[2018-10-08 17:00] VITALS: BP 121/68
[2018-10-08] MEDS: DULoxetine HCL 30 MG CAPCR PO SCH (20:19)
[2018-10-08] MEDS: MONTELUKAST SODIUM 10 MG TAB PO SCH (20:19)
[2018-10-08] MEDS: FLUTICASONE PROP 0.05% 16 GM SCH (20:19)
[2018-10-08] MEDS: cefTRIAXone(*) 2 GM VIAL 2 GM in NS(*) 0.9% 100 ML ADDVANT BAG 100 ML IVPB SCH (20:20)
[2018-10-09] MEDS: PANTOPRAZOLE SOD 40 MG TABEC PO SCH (05:22)
[2018-10-09 07:40] VITALS: BP 115/39
[2018-10-09 09:06] VITALS: BP 113/63
[2018-10-09] MEDS: HYDROCHLOROTHIAZIDE 25 MG TAB PO SCH (09:06)
[2018-10-09] MEDS: CELECOXIB 200 MG CAP PO SCH ×2 (09:06→16:36)
[2018-10-09] MEDS: OXYBUTYNIN CHL 5 MG TAB PO SCH ×2 (09:06→20:54)
[2018-10-09] MEDS: ASPIRIN 325 MG ENTERIC COATED PO SCH (09:07)
[2018-10-09] MEDS: LACTULOSE 10 GM/15 ML UDCUP PO SCH ×3 (09:07→21:00)
[2018-10-09] MEDS: LOSARTAN POTASSIUM 50 MG TAB PO SCH (09:07)
[2018-10-09] MEDS: oxyCODONE HCL 5 MG CAP PO PRN ×2 (09:07→20:54)
--- NOTE | 2018-10-09 12:35 | NUR ---
Occupational Therapy Impression Mod (I) ambulation household distance with RW. Mod (I) supine to sit with leg investment banking manager. Independent UB dressing. Mod (I) LB dressing with merchandise examiner/leg investment banking manager. Initiating bathtub transfers and AE recommendations. Pt progressing well towards OT goals. Continue POC. Occupational Therapy Goals 1) Pt will be Mod (I) toilet task. 2) Pt will be Mod (I) grooming/hygiene. 3) Pt will be Mod (I) UB/LB dressing. 4) Pt will be SBA shower task. 5) Pt will be Mod (I) light meal prep task. 6) Pt Breezy Index of ADLs will improve by 2 points. Patient's Goal
[2018-10-09 15:20] VITALS: BP 98/50
--- NOTE | 2018-10-09 15:33 | NUR ---
Physical Therapy Impression Pt able to participate in ther ex and ambulating maintaining TTBW with SBA. Physical Therapy Goals 1. Mod I bed mobility. 2. Mod I transfers. 3. Mod I gait maintaining PWB x 150' with RW. 4. Ascend/descend 2 stairs maintaining PWB SBA. Patient's Goals
[2018-10-09] MEDS: FLUTICASONE PROP 0.05% 16 GM SCH (20:53)
[2018-10-09] MEDS: MONTELUKAST SODIUM 10 MG TAB PO SCH (20:53)
[2018-10-09] MEDS: DULoxetine HCL 30 MG CAPCR PO SCH (20:53)
[2018-10-09] MEDS: cefTRIAXone(*) 2 GM VIAL 2 GM in NS(*) 0.9% 100 ML ADDVANT BAG 100 ML IVPB SCH (20:53)
[2018-10-10] MEDS: PANTOPRAZOLE SOD 40 MG TABEC PO SCH (06:07)
[2018-10-10] MEDS: ASPIRIN 325 MG ENTERIC COATED PO SCH (08:53)
[2018-10-10] MEDS: CELECOXIB 200 MG CAP PO SCH ×2 (08:53→17:18)
[2018-10-10 08:54] VITALS: BP 107/55
[2018-10-10] MEDS: LOSARTAN POTASSIUM 50 MG TAB PO SCH (08:56)
[2018-10-10] MEDS: OXYBUTYNIN CHL 5 MG TAB PO SCH ×2 (08:57→20:56)
[2018-10-10] MEDS: HYDROCHLOROTHIAZIDE 25 MG TAB PO SCH (08:57)
[2018-10-10] MEDS: LACTULOSE 10 GM/15 ML UDCUP PO SCH ×3 (08:57→20:56)
[2018-10-10 16:00] VITALS: BP 120/68
[2018-10-10] MEDS: FLUTICASONE PROP 0.05% 16 GM SCH (20:56)
[2018-10-10] MEDS: MONTELUKAST SODIUM 10 MG TAB PO SCH (20:56)
[2018-10-10] MEDS: DULoxetine HCL 30 MG CAPCR PO SCH (20:56)
[2018-10-10] MEDS: cefTRIAXone(*) 2 GM VIAL 2 GM in NS(*) 0.9% 100 ML ADDVANT BAG 100 ML IVPB SCH (20:56)
[2018-10-10] MEDS: oxyCODONE HCL 5 MG CAP PO PRN (20:56)
[2018-10-11] MEDS: PANTOPRAZOLE SOD 40 MG TABEC PO SCH (06:33)
[2018-10-11 07:44] VITALS: BP 107/59
[2018-10-11] MEDS: LACTULOSE 10 GM/15 ML UDCUP PO SCH ×2 (09:00→20:55)
[2018-10-11] MEDS: HYDROCHLOROTHIAZIDE 25 MG TAB PO SCH (09:00)
[2018-10-11] MEDS: LOSARTAN POTASSIUM 50 MG TAB PO SCH (09:00)
[2018-10-11] MEDS: CELECOXIB 200 MG CAP PO SCH ×2 (09:19→17:53)
[2018-10-11] MEDS: OXYBUTYNIN CHL 5 MG TAB PO SCH ×2 (09:19→20:58)
[2018-10-11] MEDS: ASPIRIN 325 MG ENTERIC COATED PO SCH (09:20)
[2018-10-11 20:09] VITALS: BP 139/53
[2018-10-11] MEDS: DULoxetine HCL 30 MG CAPCR PO SCH (20:58)
[2018-10-11] MEDS: MONTELUKAST SODIUM 10 MG TAB PO SCH (20:58)
[2018-10-11] MEDS: FLUTICASONE PROP 0.05% 16 GM SCH (20:58)
[2018-10-11] MEDS: cefTRIAXone(*) 2 GM VIAL 2 GM in NS(*) 0.9% 100 ML ADDVANT BAG 100 ML IVPB SCH (20:58)
[2018-10-11] MEDS: oxyCODONE HCL 5 MG CAP PO PRN (20:59)
[2018-10-12] MEDS: PANTOPRAZOLE SOD 40 MG TABEC PO SCH (06:17)
[2018-10-12 07:35] VITALS: BP 114/66
[2018-10-12] MEDS: HYDROCHLOROTHIAZIDE 25 MG TAB PO SCH (08:39)
[2018-10-12] MEDS: ASPIRIN 325 MG ENTERIC COATED PO SCH (08:40)
[2018-10-12] MEDS: LACTULOSE 10 GM/15 ML UDCUP PO SCH ×2 (08:40→21:00)
[2018-10-12] MEDS: CELECOXIB 200 MG CAP PO SCH ×2 (08:40→17:42)
[2018-10-12] MEDS: OXYBUTYNIN CHL 5 MG TAB PO SCH ×2 (08:40→21:16)
[2018-10-12] MEDS: LOSARTAN POTASSIUM 50 MG TAB PO SCH (08:40)
[2018-10-12] MEDS: oxyCODONE HCL 5 MG CAP PO PRN ×2 (10:30→21:48)
--- NOTE | 2018-10-12 11:05 | NUR ---
Pt picking at legs Patient, after shower, began picking at a mole that is near right hip as this RN was doing dressing change. Pt said, "I'd better quick picking at this, huh?" and then pointed at another mole that is on top of upper thigh (as pt was seated) which was raw and oozing from being picked on. Taught that really needs to leave moles, as well as incision, alone, to prevent infection. Pt stated that she would.
--- NOTE | 2018-10-12 15:30 | NUR ---
Occupational Therapy Impression Mod (I) ambulation 2x20ft with RW. Mod (I) LB dressing. Mod (I) tub transfer with use of extended tub transfer bench. Pt nearing OT goals, educated on POC and d/c from OT in next tx session. Occupational Therapy Goals 1) Pt will be Mod (I) toilet task. 2) Pt will be Mod (I) grooming/hygiene. 3) Pt will be Mod (I) UB/LB dressing. 4) Pt will be SBA shower task. 5) Pt will be Mod (I) light meal prep task. 6) Pt Breezy Index of ADLs will improve by 2 points. Patient's Goal
[2018-10-12 15:40] VITALS: BP 139/66
--- NOTE | 2018-10-12 17:46 | Medical Nutrition Therapy ---
Nutrition Anthropometrics Height (Inches): 65.00 Height (Calculated Centimeters: 165.054642 Weight (Pounds): 223 Weight (Calculated Kilograms): 101.491 Ezequiel Nutrition Score: Adequate Ezequiel Nutrition Risk Score: 18 Dietary Referral Nutrition Risk Factors: Nutrition Risk Comment: Nutritional Diagnosis Nutritional Risk Acuity 2: Sepsis Nutritional Risk Acuity 4: Good Appetite Past Medical History: HX of GERD, HTN, OSP, depression, urinary incontinence, hypercholesterolemia, hepatitis with jaundice Nutritional Acuity: 2-Moderate Nutrition Diagnosis: Increased Nutrient Needs Nutrition Etiology: Physiological Causes Nutrition Problem/Etiology/Sym: Increased nutrient needs as relatead to physiological causes as evidenced by septic arthritis, and recent surgery. Energy Requirement: 1940 (M-St Jeor X 1.1 (TEF) X1.2 (activity factor)) Adjusted Energy Requirement Re: 1440 (-500 for 1# wt loss/wk) Protein Requirement: 94 (1.0g protein/ kg, elevated for healing) Fluid Requirement: 2350 (25mL/kg) Diet Type: Regular Nutrition Intervention: Cont diet as ordered, Encourage intake Drug: Diuretics Nutrition Monitoring & Eval Nutrition Goals: Eat 75-100% Meal Nutrition Follow-Up: Good Intake RD Patient Assessment Time: [address] Assessment Type: RD Re-Assessment Patient Nutrition Acuity: 2-Moderate Follow Up Date: Oct 20, 2018 Nutritional Comment: Pt admitted after TKA with infection. Dx with septic arthritis. Hx of GERD, HTN, depression, urinary incontinence, hepatitis with jaundice, and hypercholesterolemia. Currently on MARKIE with 100% intakes. No labs to report at this time. Pt on hydrochlorothiazide, may recommend K supplement. -AKG 2/ Pt cont on regular diet, eating 75-100% of meals. Pt on K+ depleting duiretic, K+ is WNR at 4.5. Alb low at 2.3, H?H low at 9.9/28.7, CPR elevated at 6.7. Will cont to monitor and encourage intake. BK 10/12 Pt cont MARKIE. Eating 100% of most meals. Wt is up 26#/10 days. Pt went from non pitting edema BLE to 2+ pitting edema BLE. Pt cont diuretic. Anticipate wt loss when edema resolves. Will cont to monitor and encourage intake. SAMEER CLARK Oct 12, 2018 17:46
[2018-10-12] MEDS: DULoxetine HCL 30 MG CAPCR PO SCH (21:16)
[2018-10-12] MEDS: FLUTICASONE PROP 0.05% 16 GM SCH (21:16)
[2018-10-12] MEDS: cefTRIAXone(*) 2 GM VIAL 2 GM in NS(*) 0.9% 100 ML ADDVANT BAG 100 ML IVPB SCH (21:16)
[2018-10-12] MEDS: MONTELUKAST SODIUM 10 MG TAB PO SCH (21:16)
[2018-10-13] MEDS: PANTOPRAZOLE SOD 40 MG TABEC PO SCH (06:01)
[2018-10-13 07:30] VITALS: BP 123/68
[2018-10-13] MEDS: oxyCODONE HCL 5 MG CAP PO PRN (08:04)
[2018-10-13] MEDS: LACTULOSE 10 GM/15 ML UDCUP PO SCH ×2 (09:00→20:28)
[2018-10-13] MEDS: CELECOXIB 200 MG CAP PO SCH ×2 (09:18→17:00)
[2018-10-13] MEDS: OXYBUTYNIN CHL 5 MG TAB PO SCH ×2 (09:19→20:27)
[2018-10-13] MEDS: LOSARTAN POTASSIUM 50 MG TAB PO SCH (09:23)
[2018-10-13] MEDS: HYDROCHLOROTHIAZIDE 25 MG TAB PO SCH (09:23)
[2018-10-13] MEDS: ASPIRIN 325 MG ENTERIC COATED PO SCH (09:32)
[2018-10-13 11:20] LABS: PLATELET COUNT, AUTOMATED 156 K/uL (150-450)
--- NOTE | 2018-10-13 11:43 | NUR ---
Occupational Therapy Impression Mod (I) bed mobility. Independent UB dressing. Mod (I) with occasional v/c's to sequence LB dressing-appearing flustered, unsure of how she sequenced LB dressing prior. Encouraged obtaining dresses etc. to improve (I) with ADLs. Mod (I) toileting. Mod (I) light meal prep simulation with good balance and adherence to WB. Educated on use of walker tray for (I) with cooking. Care conference this afternoon to determine discharge plan. If pt plans to stay on ECF for duration of antibiotics, plan for final OT session tomorrow with ability to re-eval pt towards end of antibiotics for higher level tasks at discharge. Occupational Therapy Goals 1) Pt will be Mod (I) toilet task. 2) Pt will be Mod (I) grooming/hygiene. 3) Pt will be Mod (I) UB/LB dressing. 4) Pt will be SBA shower task. 5) Pt will be Mod (I) light meal prep task. 6) Pt Breezy Index of ADLs will improve by 2 points. Patient's Goal
--- NOTE | 2018-10-13 14:49 | NUR ---
Physical Therapy Impression Educated pt on ensuring R LE rests in full ext. without pillow underneath. Pt verbalized understanding. VC's to maintain WB status with transfer and ambulation. Pt required encouragement to eat her meal in the dining room. Cont. with POC. Physical Therapy Goals 1. Mod I bed mobility. 2. Mod I transfers. 3. Mod I gait maintaining PWB x 150' with RW. 4. Ascend/descend 2 stairs maintaining PWB SBA. Patient's Goals
[2018-10-13 17:20] VITALS: BP 119/76
[2018-10-13] MEDS: FLUTICASONE PROP 0.05% 16 GM SCH (20:27)
[2018-10-13] MEDS: DULoxetine HCL 30 MG CAPCR PO SCH (20:27)
[2018-10-13] MEDS: MONTELUKAST SODIUM 10 MG TAB PO SCH (20:27)
[2018-10-13] MEDS: cefTRIAXone(*) 2 GM VIAL 2 GM in NS(*) 0.9% 100 ML ADDVANT BAG 100 ML IVPB SCH (20:27)
[2018-10-14] MEDS: PANTOPRAZOLE SOD 40 MG TABEC PO SCH (06:25)
[2018-10-14 08:30] VITALS: BP 117/48
[2018-10-14] MEDS: HYDROCHLOROTHIAZIDE 25 MG TAB PO SCH (08:44)
[2018-10-14] MEDS: OXYBUTYNIN CHL 5 MG TAB PO SCH ×2 (08:44→20:45)
[2018-10-14] MEDS: LOSARTAN POTASSIUM 50 MG TAB PO SCH (08:44)
[2018-10-14] MEDS: ASPIRIN 325 MG ENTERIC COATED PO SCH (08:44)
[2018-10-14] MEDS: CELECOXIB 200 MG CAP PO SCH ×2 (08:44→17:13)
[2018-10-14] MEDS: LACTULOSE 10 GM/15 ML UDCUP PO SCH ×2 (08:45→08:49)
--- NOTE | 2018-10-14 12:05 | NUR ---
14-day MDS completed with pt. C: 15, D: 3, E: no concerns, Q: pt plans to return to community, no referrals made yet but may be needed.
--- NOTE | 2018-10-14 15:43 | Hospitalist Progress Note ---
Physical Exam Vital Signs Date Time Temp Pulse Resp B/P (MAP) Pulse Ox O2 Delivery O2 Flow Rate FiO2 10/14/18 09:30 92 Room Air 10/14/18 08:30 98.8 84 16 117/48 (71) 10/14/18 00:28 2.0 Intake and Output 10/14/18 06:59 Intake Total 1080 ml Balance 1080 ml Intake Oral 1080 ml # Voids 2 Result Diagram: 10/13/18 1113 10/13/18 1113 Assessment and Plan Problems: (1) Septic arthritis Status: Acute Assessment & Plan: Post explant and wash out, growing E coli from joint aspirate outside hospital. She does have Abx impregnated spacer placed to her right knee. Will cover with ceftriaxone based on susceptibility data from outside hospital. She had PICC placed 09/30. She will require 6 weeks IV a ntibiotics with last day of antibiotics of 11/20/28. Likely source of contamination was E.Coli noted in urine cx performed in ER 04/24. Sensitivities from urine cx on 04/24 are matching current sensitivities from cultures of R knee. (2) HTN (hypertension) Status: Chronic Assessment & Plan: Continue chronic HCTZ, losartan. (3) GERD (gastroesophageal reflux disease) Status: Chronic Assessment & Plan: Continue chronic PPI. (4) Hepatitis Status: Chronic Assessment & Plan: The patient has liver disease, fatty liver per her report. She does have esophageal varices and portal hypertension per CT report done 09/29/18. She sees a GI specialist in [place]. She had been on chronic lactulose but admits she had not been taking it twice daily. She has been refusing to take lactulose on ECF. Will check an ammonia level with her next lab work. If she has a change in mental status before then will need to check an ammonia level STAT. Time Spent on Plan of Care: < 30 min Problem Qualifiers (1) HTN (hypertension): Hypertension type: essential hypertension Qualified Codes: I10 - Essential (primary) hypertension FAUSTO ORTEGA MD Oct 14, 2018 15:43
[2018-10-14 19:25] VITALS: BP 129/64
[2018-10-14] MEDS: MONTELUKAST SODIUM 10 MG TAB PO SCH (20:46)
[2018-10-14] MEDS: FLUTICASONE PROP 0.05% 16 GM SCH (20:46)
[2018-10-14] MEDS: DULoxetine HCL 30 MG CAPCR PO SCH (20:46)
[2018-10-14] MEDS: cefTRIAXone(*) 2 GM VIAL 2 GM in NS(*) 0.9% 100 ML ADDVANT BAG 100 ML IVPB SCH (20:47)
[2018-10-14] MEDS: oxyCODONE HCL 5 MG CAP PO PRN (20:50)
[2018-10-15] MEDS: PANTOPRAZOLE SOD 40 MG TABEC PO SCH (06:22)
--- NOTE | 2018-10-15 07:56 | OT ECF NOTE ---
Type of Note: Discharge Note Primary Medical Diagnosis: Generalized weakness s/p I&D of right knee. *TTWB R) LE* *Knee immobilizer donned for all mobility* Occupational Therapy Evaluation Date: 10/02/18 SUBJECTIVE: Prior Hospitalization: DOS: 09/29/18. [facility] 09/29/18 thru 10/02/18 Prior Level of Function: Independent with all ADLs/IADLs Prior Living Status: Single level house, Alone Community Services: Independent, No known needs Home Accessibility: Stairs with rails All needs on one level Tub/shower combination Equipment Owned: Cane, toilet cardiologist, RW, extended tub bench Medical Complications/Past Medical History: GERD, HTN, Depression, Urinary incontinence. Please refer to EMR for further details. Psychosocial Support: Family locally Pain Scale (0-10): Pt reporting significant pain in R) LE during mobility. No pain at rest. OBJECTIVE: Strength: MMT: Right Left Shoulder Flexion WFL WFL Elbow Flexion WFL WFL Wrist Extension WFL WFL Dental Floss Packer WFL WFL (5= normal, 4= good, 3= fair, 2= poor, 1= trace) ROM: Both upper extremities, WFL Sensation: No paraesthesia reported Functional Transfer: Assistive Device: Front wheeled walker, Gait belt Transfer Ability: Mod (I). Pt demonstrates occasional impulsivity with mobility. Not cleared for (I) in room at this time. Progressing towards (I) in room with PT. ADL: Upper body dressing: Assistive device: Upper body dressing ability: Independent Lower body dressing: Assistive device: Leg Master Control Engineer Lower body dressing ability: Modified Independent-including donning/doffing LE brace. Toileting: Assistive device: Raised toilet seat Toileting ability: Modified Independent Grooming/hygiene: Assistive device: Standing Grooming ability: Modified Independent Bathing: Assistive device: Extended tub transfer bench Bathing ability:Modified Independent Standardized Assessment: Breezy Index of Activities of Daily Livin/20 upon initial evaluation (10/02/18). upon discharge (10/13/17) ASSESSMENT: Sherie presented to [facility] with decreased (I) and tolerance for ADLs/IADLs s/p R) Knee I&D and partial weight bearing status. She has met all skilled OT goals and reports no further needs to be addressed with OT at this time. Pt is (I) with UB HEP and has been educated on appropriate AE needs. Short Term Goals: 1) Pt will be Mod (I) toilet task. GOAL MET 2) Pt will be Mod (I) grooming/hygiene. GOAL MET 3) Pt will be Mod (I) UB/LB dressing. GOAL MET 4) Pt will be SBA shower task. GOAL MET 5) Pt will be Mod (I) light meal prep task. GOAL MET 6) Pt Breezy Index of ADLs will improve by 2 points.GOAL MET Electron Beam Welder Goals: Return home with services Patient Goals: "Dance" Rehabilitation Prognosis: Good Barriers to Discharge: Pain, Weight bearing status PLAN: The patient will plan for continued IV antibiotics and PT for about 4 weeks pending progression and requirement for daily antibiotics. OT will follow for further needs and higher level skills to be addressed prior to discharge home. Thank you for this referral. If you have any questions, concerns, or comments about this report or plan, please contact me at . Lashay Hilton MS, OTR/L Occupational Therapist [place]
[2018-10-15 08:30] VITALS: BP 123/56
[2018-10-15] MEDS: HYDROCHLOROTHIAZIDE 25 MG TAB PO SCH (08:42)
[2018-10-15] MEDS: ASPIRIN 325 MG ENTERIC COATED PO SCH (08:42)
[2018-10-15] MEDS: LOSARTAN POTASSIUM 50 MG TAB PO SCH (08:42)
[2018-10-15] MEDS: OXYBUTYNIN CHL 5 MG TAB PO SCH ×2 (08:42→20:18)
[2018-10-15] MEDS: CELECOXIB 200 MG CAP PO SCH ×2 (08:42→17:14)
[2018-10-15] MEDS: oxyCODONE HCL 5 MG CAP PO PRN ×2 (10:48→20:18)
[2018-10-15 16:00] VITALS: BP 142/70
[2018-10-15] MEDS: DULoxetine HCL 30 MG CAPCR PO SCH (20:18)
[2018-10-15] MEDS: MONTELUKAST SODIUM 10 MG TAB PO SCH (20:18)
[2018-10-15] MEDS: FLUTICASONE PROP 0.05% 16 GM SCH (20:19)
[2018-10-15] MEDS: cefTRIAXone(*) 2 GM VIAL 2 GM in NS(*) 0.9% 100 ML ADDVANT BAG 100 ML IVPB SCH (20:19)
[2018-10-16] MEDS: PANTOPRAZOLE SOD 40 MG TABEC PO SCH (06:32)
[2018-10-16 09:00] VITALS: BP 122/56
[2018-10-16] MEDS: HYDROCHLOROTHIAZIDE 25 MG TAB PO SCH (09:33)
[2018-10-16] MEDS: CELECOXIB 200 MG CAP PO SCH ×2 (09:33→16:48)
[2018-10-16] MEDS: LOSARTAN POTASSIUM 50 MG TAB PO SCH (09:33)
[2018-10-16] MEDS: OXYBUTYNIN CHL 5 MG TAB PO SCH ×2 (09:33→20:21)
[2018-10-16] MEDS: ASPIRIN 325 MG ENTERIC COATED PO SCH (09:33)
--- NOTE | 2018-10-16 15:16 | NUR ---
Physical Therapy Impression Pt tolerated ambulation with TTWB on R) and shoe on L) LE. Attempt at up/down platform step was not successful, as pt was unable to bear sufficient weight through UE's with rail positioned next to wall. Physical Therapy Goals 1. Mod I bed mobility. 2. Mod I transfers. 3. Mod I gait maintaining PWB x 150' with RW. 4. Ascend/descend 2 stairs maintaining PWB SBA. Patient's Goals
[2018-10-16 18:38] VITALS: BP 130/64
[2018-10-16] MEDS: cefTRIAXone(*) 2 GM VIAL 2 GM in NS(*) 0.9% 100 ML ADDVANT BAG 100 ML IVPB SCH (20:21)
[2018-10-16] MEDS: DULoxetine HCL 30 MG CAPCR PO SCH (20:21)
[2018-10-16] MEDS: FLUTICASONE PROP 0.05% 16 GM SCH (20:22)
[2018-10-16] MEDS: MONTELUKAST SODIUM 10 MG TAB PO SCH (20:22)
[2018-10-16] MEDS: oxyCODONE HCL 5 MG CAP PO PRN (22:56)
[2018-10-17] MEDS: PANTOPRAZOLE SOD 40 MG TABEC PO SCH (06:43)
[2018-10-17 08:30] VITALS: BP 115/59
[2018-10-17] MEDS: CELECOXIB 200 MG CAP PO SCH ×2 (09:07→17:33)
[2018-10-17] MEDS: OXYBUTYNIN CHL 5 MG TAB PO SCH ×2 (09:07→21:25)
[2018-10-17] MEDS: HYDROCHLOROTHIAZIDE 25 MG TAB PO SCH (09:07)
[2018-10-17] MEDS: LOSARTAN POTASSIUM 50 MG TAB PO SCH (09:07)
[2018-10-17] MEDS: ASPIRIN 325 MG ENTERIC COATED PO SCH (09:07)
--- NOTE | 2018-10-17 09:46 | NUR ---
Physical Therapy Impression Pt tolerated ther ex in supine and reclined sitting for LE strengthening. Emphasis on technique to minimize strain at spacer. No pain reported. Physical Therapy Goals 1. Mod I bed mobility. 2. Mod I transfers. 3. Mod I gait maintaining PWB x 150' with RW. 4. Ascend/descend 2 stairs maintaining PWB SBA. Patient's Goals
[2018-10-17 16:30] VITALS: BP 138/53
[2018-10-17] MEDS: cefTRIAXone(*) 2 GM VIAL 2 GM in NS(*) 0.9% 100 ML ADDVANT BAG 100 ML IVPB SCH (21:25)
[2018-10-17] MEDS: FLUTICASONE PROP 0.05% 16 GM SCH (21:25)
[2018-10-17] MEDS: MONTELUKAST SODIUM 10 MG TAB PO SCH (21:25)
[2018-10-17] MEDS: DULoxetine HCL 30 MG CAPCR PO SCH (21:25)
[2018-10-17] MEDS: oxyCODONE HCL 5 MG CAP PO PRN (23:03)
[2018-10-18] MEDS: PANTOPRAZOLE SOD 40 MG TABEC PO SCH (05:36)
[2018-10-18 08:30] VITALS: BP 117/66
[2018-10-18] MEDS: HYDROCHLOROTHIAZIDE 25 MG TAB PO SCH (08:49)
[2018-10-18] MEDS: LOSARTAN POTASSIUM 50 MG TAB PO SCH (08:49)
[2018-10-18] MEDS: OXYBUTYNIN CHL 5 MG TAB PO SCH ×2 (08:49→20:51)
[2018-10-18] MEDS: CELECOXIB 200 MG CAP PO SCH ×2 (08:49→16:51)
[2018-10-18] MEDS: ASPIRIN 325 MG ENTERIC COATED PO SCH (08:49)
[2018-10-18 15:23] VITALS: BP 127/56
[2018-10-18] MEDS: FLUTICASONE PROP 0.05% 16 GM SCH (20:50)
[2018-10-18] MEDS: oxyCODONE HCL 5 MG CAP PO PRN (20:51)
[2018-10-18] MEDS: cefTRIAXone(*) 2 GM VIAL 2 GM in NS(*) 0.9% 100 ML ADDVANT BAG 100 ML IVPB SCH (20:51)
[2018-10-18] MEDS: DULoxetine HCL 30 MG CAPCR PO SCH (20:51)
[2018-10-18] MEDS: MONTELUKAST SODIUM 10 MG TAB PO SCH (20:51)
[2018-10-19] MEDS: PANTOPRAZOLE SOD 40 MG TABEC PO SCH (05:35)
[2018-10-19] MEDS: oxyCODONE HCL 5 MG CAP PO PRN ×2 (05:35→21:05)
[2018-10-19 07:30] VITALS: BP 125/48
[2018-10-19] MEDS: CELECOXIB 200 MG CAP PO SCH ×2 (08:51→17:01)
[2018-10-19] MEDS: OXYBUTYNIN CHL 5 MG TAB PO SCH ×2 (08:51→21:04)
[2018-10-19] MEDS: ASPIRIN 325 MG ENTERIC COATED PO SCH (08:51)
[2018-10-19] MEDS: HYDROCHLOROTHIAZIDE 25 MG TAB PO SCH (08:51)
[2018-10-19] MEDS: LOSARTAN POTASSIUM 50 MG TAB PO SCH (08:51)
--- NOTE | 2018-10-19 12:10 | Medical Nutrition Therapy ---
Nutrition Anthropometrics Height (Inches): 65.00 Height (Calculated Centimeters: 165.275217 Weight (Pounds): 223 Weight (Calculated Kilograms): 101.491 Ezequiel Nutrition Score: Adequate Ezequiel Nutrition Risk Score: 18 Dietary Referral Nutrition Risk Factors: Nutrition Risk Comment: Physical Findings Physical Appearance: Obese BMI 30-39 Skin Appearance Skin Appearance: Edema Edema Location Modifier: Both Edema Location: Lower Extremity Type of Edema: Degree of Edema: 1+ Gastrointestinal Symptoms GI Symtoms: Tube Present: Bowel Sounds: Recent Bowel Pattern: Stool Characteristics: Nutritional Diagnosis Nutritional Risk Acuity 2: Sepsis Nutritional Risk Acuity 4: Good Appetite Past Medical History: HX of GERD, HTN, OSP, depression, urinary incontinence, hypercholesterolemia, hepatitis with jaundice Nutritional Acuity: 2-Moderate Nutrition Diagnosis: Increased Nutrient Needs Nutrition Etiology: Physiological Causes Nutrition Problem/Etiology/Sym: Increased nutrient needs as relatead to physiological causes as evidenced by septic arthritis, and recent surgery. Energy Requirement: 1940 (M-St Jeor X 1.1 (TEF) X1.2 (activity factor)) Adjusted Energy Requirement Re: 1440 (-500 for 1# wt loss/wk) Protein Requirement: 94 (1.0g protein/ kg, elevated for healing) Fluid Requirement: 2350 (25mL/kg) Diet Type: Regular Nutrition Intervention: Cont diet as ordered, Encourage intake Drug: Diuretics Nutrition Monitoring & Eval Nutrition Goals: Eat 75-100% Meal Nutrition Follow-Up: Good Intake RD Patient Assessment Time: [address] Assessment Type: RD Re-Assessment Patient Nutrition Acuity: 2-Moderate Follow Up Date: Oct 27, 2018 Nutritional Comment: Pt admitted after TKA with infection. Dx with septic arthritis. Hx of GERD, HTN, depression, urinary incontinence, hepatitis with jaundice, and hypercholesterolemia. Currently on MARKIE with 100% intakes. No labs to report at this time. Pt on hydrochlorothiazide, may recommend K supplement. -AKG 2/5 Pt cont on regular diet, eating 75-100% of meals. Pt on K+ depleting duiretic, K+ is WNR at 4.5. Alb low at 2.3, H/H low at 9.9/28.7, CPR elevated at 6.7. Will cont to monitor and encourage intake. BK 10/12 Pt cont MARKIE. Eating 100% of most meals. Wt is up 26#/10 days. Pt went from non pitting edema BLE to 2+ pitting edema BLE. Pt cont diuretic. Anticipate wt loss when edema resolves. Will cont to monitor and encourage intake. BK 10/19 Pt cont on MARKIE. Eating 75- 100% of meals. No new wt. Pt currently has non-pitting edema. Anticipate wt loss. Will cont to monitor and encourage intake. SAMEER PATEL Oct 19, 2018 12:10
--- NOTE | 2018-10-19 15:08 | NUR ---
Physical Therapy Impression Focus on ther ex including UEs to build functional strength. Physical Therapy Goals 1. Mod I bed mobility. 2. Mod I transfers. 3. Mod I gait maintaining PWB x 150' with RW. 4. Ascend/descend 2 stairs maintaining PWB SBA. Patient's Goals
--- NOTE | 2018-10-19 15:12 | PT ECF NOTE ---
Type of Note: Progress Note 10/19/18 Primary Medical Diagnosis: s/p I&D R knee Physical Therapy Evaluation Date: 10/02/18 PRECAUTIONS: TTWB/PWB R LE; knee immobilizer on when up ambulating SUBJECTIVE: Prior Hospitalization: [facility] acute 09/29/18-10/02/18 for I&D Prior Level of Function: Independent with functional mobility, ADLs, and IADLs Prior Living Status: Single level house, Alone Community Services: No known needs Home Accessibility: Stairs with rails Equipment Owned: Front wheeled walker Medical Complications/Past Medical History: See [facility] Psychosocial Support: Supportive family Pain Scale (0-10): painful R knee, no number assigned OBJECTIVE: Strength: WFL L LE ROM: (please note any abnormalities) R LE in knee immobilizer Bed Mobility: Mod I with use of leg senior health physics technician Transfers: SBA/Mod I Assistive Device: Front wheeled walker Gait: SBA x120' Assistive device: Front wheeled walker Stairs: failed attempted stair negotiation at PWB ASSESSMENT: Pt has made good progress with skilled PT tx. Pt continues to require skilled PT for functional strengthening and functional mobility training to include stair negotiation. Problem List/Current Limitations: Pain, Decreased WB, Decreased activity tolerated, Decreased strength, Generalized weakness Short Term Goals: 1. Mod I bed mobility. 2. Mod I transfers. 3. Mod I gait maintaining PWB x 150' with RW. 4. Ascend/descend 2 stairs maintaining PWB SBA. Jail Goals: Return home Patient Goals: Return home Rehabilitation Prognosis: Good Barriers for Discharge: none identified PLAN: The patient will benefit from skilled physical therapy services 5 times per week for 2 weeks including: Therapeutic Exercise, Therapeutic Activities, Transfer Training, Gait Training, Stair Training, Manual Therapy, ADL's, Safety Training, Neuromuscular Re-educ., Pt/Caregiver Training, Bed Mobility Thank you for this referral. If you have any questions, concerns, or comments about this report or plan, please contact me at . Ambar Iraheta, PT, DPT, GCS MTDD
[2018-10-19 15:30] VITALS: BP 113/43
[2018-10-19] MEDS: NS(*) 0.9% 250 ML BAG 250 ML IV PRN (21:03)
[2018-10-19] MEDS: cefTRIAXone(*) 2 GM VIAL 2 GM in NS(*) 0.9% 100 ML ADDVANT BAG 100 ML IVPB SCH (21:03)
[2018-10-19] MEDS: DULoxetine HCL 30 MG CAPCR PO SCH (21:04)
[2018-10-19] MEDS: FLUTICASONE PROP 0.05% 16 GM SCH (21:04)
[2018-10-19] MEDS: MONTELUKAST SODIUM 10 MG TAB PO SCH (21:04)
[2018-10-20] MEDS: PANTOPRAZOLE SOD 40 MG TABEC PO SCH (06:04)
[2018-10-20 06:16] LABS: PLATELET COUNT, AUTOMATED 150 K/uL (150-450)
[2018-10-20 08:00] VITALS: BP 117/70
[2018-10-20] MEDS: ASPIRIN 325 MG ENTERIC COATED PO SCH (08:40)
[2018-10-20] MEDS: HYDROCHLOROTHIAZIDE 25 MG TAB PO SCH (08:40)
[2018-10-20] MEDS: LOSARTAN POTASSIUM 50 MG TAB PO SCH (08:40)
[2018-10-20] MEDS: CELECOXIB 200 MG CAP PO SCH ×2 (08:40→16:54)
[2018-10-20] MEDS: OXYBUTYNIN CHL 5 MG TAB PO SCH ×2 (08:40→20:33)
--- NOTE | 2018-10-20 12:20 | NUR ---
Physical Therapy Impression Pt requires cues to maintain TTWB during gait, especially when she is in a hurry. Pt attempted hop-to pattern with non-weight bearing, but did experience LOB x 2 which required PT assist to correct. Pt to continue with TTWB, for safety and encouraged to maintain this properly. Pt then attempted stair in rehab dept. Pt able to hop up/down one 2" platform step with use of B) UE's on rail on R) side and Min assist by PT. Pt attempted 6" platform step, but is unable to hop that high with support only through UE's as this time. Will continue to address this goal for home access, however, pt will also seek funding and resources to install a ramp at her apartment if possible. Physical Therapy Goals 1. Mod I bed mobility. 2. Mod I transfers. 3. Mod I gait maintaining PWB x 150' with RW. 4. Ascend/descend 2 stairs maintaining PWB SBA. Patient's Goals
[2018-10-20 19:16] VITALS: BP 120/72
[2018-10-20] MEDS: DULoxetine HCL 30 MG CAPCR PO SCH (20:33)
[2018-10-20] MEDS: cefTRIAXone(*) 2 GM VIAL 2 GM in NS(*) 0.9% 100 ML ADDVANT BAG 100 ML IVPB SCH (20:33)
[2018-10-20] MEDS: MONTELUKAST SODIUM 10 MG TAB PO SCH (20:33)
[2018-10-20] MEDS: oxyCODONE HCL 5 MG CAP PO PRN (20:35)
[2018-10-20] MEDS: FLUTICASONE PROP 0.05% 16 GM SCH (20:35)
[2018-10-21] MEDS: PANTOPRAZOLE SOD 40 MG TABEC PO SCH (06:37)
[2018-10-21 08:00] VITALS: BP 134/56
[2018-10-21] MEDS: ASPIRIN 325 MG ENTERIC COATED PO SCH (08:28)
[2018-10-21] MEDS: OXYBUTYNIN CHL 5 MG TAB PO SCH ×2 (08:28→20:18)
[2018-10-21] MEDS: LOSARTAN POTASSIUM 50 MG TAB PO SCH (08:28)
[2018-10-21] MEDS: CELECOXIB 200 MG CAP PO SCH ×2 (08:28→17:19)
[2018-10-21] MEDS: HYDROCHLOROTHIAZIDE 25 MG TAB PO SCH (08:28)
--- NOTE | 2018-10-21 11:39 | NUR ---
Physical Therapy Impression In standing, Pt performed on R LE: hip flexion (straight knee), hip abduction, and hip extension x10. L LE: heel raises and mini-squats x10. Pt able ambulated to/from therapy department with SBA using RW and good compliance with TTWB on R LE to build functional strength and endurance. Physical Therapy Goals 1. Mod I bed mobility. 2. Mod I transfers. 3. Mod I gait maintaining PWB x 150' with RW. 4. Ascend/descend 2 stairs maintaining PWB SBA. Patient's Goals
--- NOTE | 2018-10-21 14:17 | Hospitalist Progress Note ---
Subjective Progress Notes Subjective She has complaints of itching. She has no rash present. She reports she feels it is due to dry skin. Otherwise, she has no complaints. Patient Complains of: Cardiovascular: No: Chest Pain Respiratory: No: Shortness of Breath Physical Exam Vital Signs Date Time Temp Pulse Resp B/P (MAP) Pulse Ox O2 Delivery O2 Flow Rate FiO2 10/21/18 09:00 98 Room Air 10/21/18 08:00 97.9 81 16 134/56 (82) 2.0 Intake and Output 10/21/18 00:00 Intake Total 1790 ml Balance 1790 ml Intake Oral 1790 ml # Voids 3 # Bowel Movements 1 General Appearance: Alert, Awake, No Acute Distress, Afebrile Neuro: No Gross deficits Cardiovascular: Regular Rate and Rhythm Respiratory: No Respiratory Distress, Clear to Auscultation GI: Soft and Non-Tender Integumentary: Skin Intact without Lesion / Mass, Scaly / Dry Skin Psych: Alert & Oriented X3, Appropriate Mood & Affect Result Diagram: 10/20/1860010/20/18600 Assessment and Plan Problems: (1) Septic arthritis Status: Acute Assessment & Plan: Post explant and wash out, growing E coli from joint aspirate outside hospital. She does have Abx impregnated spacer placed to her right knee. Will cover with ceftriaxone based on susceptibility data from outside hospital. She had PICC placed 09/30. She will require 6 weeks IV antibiotics with last day of antibiotics of 11/20/18. Likely source of contamination was E.Coli noted in urine cx performed in ER 04/24. Sensitivities from urine cx on 04/24 are matching current sensitivities from cultures of R knee. (2) HTN (hypertension) Status: Chronic Assessment & Plan: Continue chronic HCTZ, losartan. (3) GERD (gastroesophageal reflux disease) Status: Chronic Assessment & Plan: Continue chronic PPI. (4) Hepatitis Status: Chronic Assessment & Plan: The patient has liver disease, fatty liver per her report. She does have esophageal varices and portal hypertension per CT report done 09/29/18. She sees a GI specialist in [place]. She had been on chronic lactulose but admits she had not been taking it twice daily. She has been refusing to take lactulose on ECF. Ammonia level is 34. If she has a change in mental status be fore then will need to check an ammonia level STAT. Will recheck ammonia level next week. (5) Itching Status: Acute Assessment & Plan: Looks like probably secondary to dry skin. She has been using lotion without relief. She will get cortisone cream to affected areas twice daily (lower and upper extremities). Problem Qualifiers (1) HTN (hypertension): Hypertension type: essential hypertension Qualified Codes: I10 - Essential (primary) hypertension CHERI MENDEZ Oct 21, 2018 14:17
[2018-10-21 19:10] VITALS: BP 109/57
[2018-10-21] MEDS: oxyCODONE HCL 5 MG CAP PO PRN (19:32)
[2018-10-21] MEDS: HYDROCORTISONE 1% CR 28.35 GM TP SCH (20:17)
[2018-10-21] MEDS: FLUTICASONE PROP 0.05% 16 GM SCH (20:17)
[2018-10-21] MEDS: MONTELUKAST SODIUM 10 MG TAB PO SCH (20:18)
[2018-10-21] MEDS: DULoxetine HCL 30 MG CAPCR PO SCH (20:18)
[2018-10-21] MEDS: cefTRIAXone(*) 2 GM VIAL 2 GM in NS(*) 0.9% 100 ML ADDVANT BAG 100 ML IVPB SCH (20:18)
[2018-10-22] MEDS: oxyCODONE HCL 5 MG CAP PO PRN ×2 (05:52→18:49)
[2018-10-22] MEDS: PANTOPRAZOLE SOD 40 MG TABEC PO SCH (05:52)
[2018-10-22 08:05] VITALS: BP 117/41
[2018-10-22] MEDS: ASPIRIN 325 MG ENTERIC COATED PO SCH (08:54)
[2018-10-22] MEDS: HYDROCORTISONE 1% CR 28.35 GM TP SCH ×2 (08:54→20:03)
[2018-10-22] MEDS: HYDROCHLOROTHIAZIDE 25 MG TAB PO SCH (08:54)
[2018-10-22] MEDS: OXYBUTYNIN CHL 5 MG TAB PO SCH ×2 (08:54→20:04)
[2018-10-22] MEDS: LOSARTAN POTASSIUM 50 MG TAB PO SCH (08:54)
[2018-10-22] MEDS: CELECOXIB 200 MG CAP PO SCH ×2 (08:54→17:10)
--- NOTE | 2018-10-22 15:00 | NUR ---
Physical Therapy Impression Pt agreeable to address ther ex in recliner and upright sitting. Pt notes that when she was seated in the dining room yesterday, the leg rest of her W/C was bumped and caused her R) LE to fall off the support. Pt currently c/o discomfort at 1/10 at medial patella and noted to be tender to palpation along medial joint line as well. No increased redness, edema or ecchymosis present and pt is able to complete a heel slide and supported straight leg raise without increased discomfort. Pt provided with handout for supine HEP; ther ex completed with LE's elevated in recliner. Physical Therapy Goals 1. Mod I bed mobility. 2. Mod I transfers. 3. Mod I gait maintaining PWB x 150' with RW. 4. Ascend/descend 2 stairs maintaining PWB SBA. Patient's Goals
[2018-10-22 18:50] VITALS: BP 129/77
[2018-10-22] MEDS: NYSTATIN 100,000 U/GM PWD 15GM TP SCH (20:03)
[2018-10-22] MEDS: cefTRIAXone(*) 2 GM VIAL 2 GM in NS(*) 0.9% 100 ML ADDVANT BAG 100 ML IVPB SCH (20:04)
[2018-10-22] MEDS: DULoxetine HCL 30 MG CAPCR PO SCH (20:04)
[2018-10-22] MEDS: MONTELUKAST SODIUM 10 MG TAB PO SCH (20:04)
[2018-10-22] MEDS: FLUTICASONE PROP 0.05% 16 GM SCH (20:04)
--- NOTE | 2018-10-22 21:02 | NUR ---
Sutures 10 sutures removed out of 18. Patient was not tolerating removal. She requested some type of topical pain medication. Steri-strips applied where the sutures were removed. Staff will notify in the am.
[2018-10-23] MEDS: PANTOPRAZOLE SOD 40 MG TABEC PO SCH (06:31)
[2018-10-23 08:00] VITALS: BP 124/44
[2018-10-23] MEDS: ASPIRIN 325 MG ENTERIC COATED PO SCH (08:37)
[2018-10-23] MEDS: HYDROCHLOROTHIAZIDE 25 MG TAB PO SCH (08:37)
[2018-10-23] MEDS: oxyCODONE HCL 5 MG CAP PO PRN (08:37)
[2018-10-23] MEDS: LOSARTAN POTASSIUM 50 MG TAB PO SCH (08:37)
[2018-10-23] MEDS: CELECOXIB 200 MG CAP PO SCH ×2 (08:37→17:09)
[2018-10-23] MEDS: OXYBUTYNIN CHL 5 MG TAB PO SCH ×2 (08:37→20:26)
[2018-10-23] MEDS: HYDROCORTISONE 1% CR 28.35 GM TP SCH ×3 (08:38→20:26)
[2018-10-23] MEDS: NYSTATIN 100,000 U/GM PWD 15GM TP SCH ×2 (08:38→20:26)
[2018-10-23] MEDS: LACTULOSE 10 GM/15 ML UDCUP PO SCH (11:17)
--- NOTE | 2018-10-23 12:05 | NUR ---
Physical Therapy Impression Review of HEP with verbal cueing for technique still required. Physical Therapy Goals 1. Mod I bed mobility. 2. Mod I transfers. 3. Mod I gait maintaining PWB x 150' with RW. 4. Ascend/descend 2 stairs maintaining PWB SBA. Patient's Goals
[2018-10-23 15:22] VITALS: BP 102/56
[2018-10-23] MEDS: cefTRIAXone(*) 2 GM VIAL 2 GM in NS(*) 0.9% 100 ML ADDVANT BAG 100 ML IVPB SCH (20:25)
[2018-10-23] MEDS: DULoxetine HCL 30 MG CAPCR PO SCH (20:26)
[2018-10-23] MEDS: MONTELUKAST SODIUM 10 MG TAB PO SCH (20:26)
[2018-10-23] MEDS: FLUTICASONE PROP 0.05% 16 GM SCH (20:26)
[2018-10-24] MEDS: PANTOPRAZOLE SOD 40 MG TABEC PO SCH (06:21)
[2018-10-24 07:41] VITALS: BP 118/63
[2018-10-24] MEDS: CELECOXIB 200 MG CAP PO SCH ×2 (08:45→17:34)
[2018-10-24] MEDS: HYDROCHLOROTHIAZIDE 25 MG TAB PO SCH (08:46)
[2018-10-24] MEDS: OXYBUTYNIN CHL 5 MG TAB PO SCH ×2 (08:46→21:09)
[2018-10-24] MEDS: ASPIRIN 325 MG ENTERIC COATED PO SCH (08:46)
[2018-10-24] MEDS: LACTULOSE 10 GM/15 ML UDCUP PO SCH (08:46)
[2018-10-24] MEDS: LOSARTAN POTASSIUM 50 MG TAB PO SCH (08:46)
[2018-10-24] MEDS: NYSTATIN 100,000 U/GM PWD 15GM TP SCH ×2 (08:47→21:08)
[2018-10-24] MEDS: HYDROCORTISONE 1% CR 28.35 GM TP SCH ×2 (08:47→21:08)
[2018-10-24] MEDS: oxyCODONE HCL 5 MG CAP PO PRN ×2 (11:10→21:09)
[2018-10-24 15:30] VITALS: BP 121/52
[2018-10-24] MEDS: cefTRIAXone(*) 2 GM VIAL 2 GM in NS(*) 0.9% 100 ML ADDVANT BAG 100 ML IVPB SCH (21:08)
[2018-10-24] MEDS: FLUTICASONE PROP 0.05% 16 GM SCH (21:08)
[2018-10-24] MEDS: MONTELUKAST SODIUM 10 MG TAB PO SCH (21:09)
[2018-10-24] MEDS: DULoxetine HCL 30 MG CAPCR PO SCH (21:09)
[2018-10-25 02:51] VITALS: BP 112/58
[2018-10-25] MEDS: PANTOPRAZOLE SOD 40 MG TABEC PO SCH (05:33)
[2018-10-25 07:17] VITALS: BP 117/62
[2018-10-25] MEDS: HYDROCHLOROTHIAZIDE 25 MG TAB PO SCH (08:40)
[2018-10-25] MEDS: CELECOXIB 200 MG CAP PO SCH ×2 (08:40→17:34)
[2018-10-25] MEDS: HYDROCORTISONE 1% CR 28.35 GM TP SCH ×2 (08:41→21:00)
[2018-10-25] MEDS: oxyCODONE HCL 5 MG CAP PO PRN ×2 (08:41→21:21)
[2018-10-25] MEDS: ASPIRIN 325 MG ENTERIC COATED PO SCH (08:41)
[2018-10-25] MEDS: LOSARTAN POTASSIUM 50 MG TAB PO SCH (08:41)
[2018-10-25] MEDS: LACTULOSE 10 GM/15 ML UDCUP PO SCH (08:42)
[2018-10-25] MEDS: NYSTATIN 100,000 U/GM PWD 15GM TP SCH ×2 (08:42→21:21)
[2018-10-25] MEDS: OXYBUTYNIN CHL 5 MG TAB PO SCH ×2 (08:45→21:21)
[2018-10-25 14:51] VITALS: BP 112/58
[2018-10-25] MEDS: cefTRIAXone(*) 2 GM VIAL 2 GM in NS(*) 0.9% 100 ML ADDVANT BAG 100 ML IVPB SCH (21:20)
[2018-10-25] MEDS: FLUTICASONE PROP 0.05% 16 GM SCH (21:20)
[2018-10-25] MEDS: MONTELUKAST SODIUM 10 MG TAB PO SCH (21:21)
[2018-10-25] MEDS: DULoxetine HCL 30 MG CAPCR PO SCH (21:21)
[2018-10-26] MEDS: PANTOPRAZOLE SOD 40 MG TABEC PO SCH (05:27)
[2018-10-26 07:33] VITALS: BP 114/54
[2018-10-26] MEDS: HYDROCHLOROTHIAZIDE 25 MG TAB PO SCH (08:38)
[2018-10-26] MEDS: NYSTATIN 100,000 U/GM PWD 15GM TP SCH ×2 (08:38→20:37)
[2018-10-26] MEDS: ASPIRIN 325 MG ENTERIC COATED PO SCH (08:38)
[2018-10-26] MEDS: LOSARTAN POTASSIUM 50 MG TAB PO SCH (08:38)
[2018-10-26] MEDS: CELECOXIB 200 MG CAP PO SCH ×2 (08:38→17:41)
[2018-10-26] MEDS: OXYBUTYNIN CHL 5 MG TAB PO SCH ×2 (08:38→20:37)
[2018-10-26] MEDS: LACTULOSE 10 GM/15 ML UDCUP PO SCH (08:40)
[2018-10-26] MEDS: HYDROCORTISONE 1% CR 28.35 GM TP SCH ×2 (09:00→20:44)
--- NOTE | 2018-10-26 09:13 | Medical Nutrition Therapy ---
Nutrition Anthropometrics Height (Inches): 65.00 Height (Calculated Centimeters: 165.246528 Weight (Pounds): 227 Weight (Calculated Kilograms): 103.192 Ezequiel Nutrition Score: Adequate Ezequiel Nutrition Risk Score: 18 Dietary Referral Nutrition Risk Factors: Nutrition Risk Comment: Nutritional Diagnosis Nutritional Risk Acuity 2: Sepsis Nutritional Risk Acuity 4: Good Appetite Past Medical History: HX of GERD, HTN, OSP, depression, urinary incontinence, hypercholesterolemia, hepatitis with jaundice Nutritional Acuity: 2-Moderate Nutrition Diagnosis: Increased Nutrient Needs Nutrition Etiology: Physiological Causes Nutrition Problem/Etiology/Sym: Increased nutrient needs as relatead to physiological causes as evidenced by septic arthritis, and recent surgery. Energy Requirement: 1940 (M-St Jeor X 1.1 (TEF) X1.2 (activity factor)) Adjusted Energy Requirement Re: 1440 (-500 for 1# wt loss/wk) Protein Requirement: 94 (1.0g protein/ kg, elevated for healing) Fluid Requirement: 2350 (25mL/kg) Diet Type: Regular Nutrition Intervention: Cont diet as ordered, Encourage intake Drug: Diuretics Nutrition Monitoring & Eval Nutrition Goals: Eat 75-100% Meal Nutrition Follow-Up: Good Intake RD Patient Assessment Time: [address] Assessment Type: RD Re-Assessment Patient Nutrition Acuity: 2-Moderate Follow Up Date: Nov 03, 2018 Nutritional Comment: Pt admitted after TKA with infection. Dx with septic arthritis. Hx of GERD, HTN, depression, urinary incontinence, hepatitis with jaundice, and hypercholesterolemia. Currently on MARKIE with 100% intakes. No labs to report at this time. Pt on hydrochlorothiazide, may recommend K supplement. -AKG 2/ Pt cont on regular diet, eating 75-100% of meals. Pt on K+ depleting duiretic, K+ is WNR at 4.5. Alb low at 2.3, H/H low at 9.9/28.7, CPR elevated at 6.7. Will cont to monitor and encourage intake. BK 10/12 Pt cont MARKIE. Eating 100% of most meals. Wt is up 26#/10 days. Pt went from non pitting edema BLE to 2+ pitting edema BLE. Pt cont diuretic. Anticipate wt loss when edema resolves. Will cont to monitor and encourage intake. BK 10/19 Pt cont on MARKIE. Eating 75- 100% of meals. No new wt. Pt currently has non-pitting edema. Anticipate wt loss. Will cont to monitor and encourage intake. CORBY. 10/26 Pt cont MARKIE. Eating 100% of most meals. Wt up 9.6% since admission. Pt has 1+ pitting edema. Pt is recieving duiretic. Anticipate wt loss when edema resolved. SAMEER CLARK Oct 26, 2018 09:13
--- NOTE | 2018-10-26 12:57 | NUR ---
Physical Therapy Impression Pt instructed in supine ther ex HEP with modifications made to allow for Pt to perform either supine or long-sitting in recliner chair. HEP consists of the following: ankle pumps, quad sets, glut sets, SLR, heel slides 3x10 to be performed Mondays, Wednesdays, and Fridays. Plan for Friday: instructed in seated/standing HEP to be performed on Tuesdays, , and Saturdays. Physical Therapy Goals 1. Mod I bed mobility. 2. Mod I transfers. 3. Mod I gait maintaining PWB x 150' with RW. 4. Ascend/descend 2 stairs maintaining PWB SBA. Patient's Goals
[2018-10-26 16:04] VITALS: BP_SYST 122
[2018-10-26] MEDS: DULoxetine HCL 30 MG CAPCR PO SCH (20:37)
[2018-10-26] MEDS: cefTRIAXone(*) 2 GM VIAL 2 GM in NS(*) 0.9% 100 ML ADDVANT BAG 100 ML IVPB SCH (20:37)
[2018-10-26] MEDS: MONTELUKAST SODIUM 10 MG TAB PO SCH (20:37)
[2018-10-26] MEDS: FLUTICASONE PROP 0.05% 16 GM SCH (20:37)
[2018-10-27] MEDS: PANTOPRAZOLE SOD 40 MG TABEC PO SCH (05:53)
[2018-10-27 06:01] LABS: PLATELET COUNT, AUTOMATED 143 K/uL (150-450)
[2018-10-27 07:40] VITALS: BP 125/54
[2018-10-27] MEDS: CELECOXIB 200 MG CAP PO SCH ×2 (08:41→16:35)
[2018-10-27] MEDS: ASPIRIN 325 MG ENTERIC COATED PO SCH (08:41)
[2018-10-27] MEDS: LACTULOSE 10 GM/15 ML UDCUP PO SCH (08:41)
[2018-10-27] MEDS: LOSARTAN POTASSIUM 50 MG TAB PO SCH (08:41)
[2018-10-27] MEDS: NYSTATIN 100,000 U/GM PWD 15GM TP SCH ×2 (08:41→20:21)
[2018-10-27] MEDS: HYDROCHLOROTHIAZIDE 25 MG TAB PO SCH (08:41)
[2018-10-27] MEDS: OXYBUTYNIN CHL 5 MG TAB PO SCH ×2 (08:41→20:21)
[2018-10-27] MEDS: HYDROCORTISONE 1% CR 28.35 GM TP SCH ×2 (08:41→20:21)
--- NOTE | 2018-10-27 09:30 | NUR ---
Physical Therapy Impression Good safety awareness with STS transfers, with good regard of w/c brakes prior to transferring, pt completed transfers with Devin and use of RW. Ambulation x80' with SBA and RW. Pt able to I)ly fix position of knee immobilizer in chair prior to initiation of standing LE ther-ex. PT provided verbal, visual and printed instruction for standing LE ther-ex to include hip abd and hip extension of R) LE as well as heel raises and mini squats of L) LE. Pt with fair tolerance to 5 repetitions, with emphasis on maintaining PWB of R) LE throughout. Pt had visitor arrive and therefore seated LE ther-ex was not able to be reviewed at this time. Physical Therapy Goals 1. Mod I bed mobility. 2. Mod I transfers. 3. Mod I gait maintaining PWB x 150' with RW. 4. Ascend/descend 2 stairs maintaining PWB SBA. Patient's Goals
--- NOTE | 2018-10-27 10:14 | NUR ---
Patient got OOB and dressed self this morning and then walked to the chair. I instructed to call [facility] staff before ambulating. She had her brace on before walking.
[2018-10-27] MEDS: oxyCODONE HCL 5 MG CAP PO PRN (10:47)
[2018-10-27 16:20] VITALS: BP 133/65
[2018-10-27] MEDS: FLUTICASONE PROP 0.05% 16 GM SCH (20:21)
[2018-10-27] MEDS: cefTRIAXone(*) 2 GM VIAL 2 GM in NS(*) 0.9% 100 ML ADDVANT BAG 100 ML IVPB SCH (20:21)
[2018-10-27] MEDS: MONTELUKAST SODIUM 10 MG TAB PO SCH (20:22)
[2018-10-27] MEDS: DULoxetine HCL 30 MG CAPCR PO SCH (20:22)
[2018-10-28] MEDS: PANTOPRAZOLE SOD 40 MG TABEC PO SCH (05:07)
[2018-10-28 07:36] VITALS: BP 146/66
[2018-10-28] MEDS: OXYBUTYNIN CHL 5 MG TAB PO SCH ×2 (08:48→20:41)
[2018-10-28] MEDS: ASPIRIN 325 MG ENTERIC COATED PO SCH (08:48)
[2018-10-28] MEDS: HYDROCHLOROTHIAZIDE 25 MG TAB PO SCH (08:48)
[2018-10-28] MEDS: LACTULOSE 10 GM/15 ML UDCUP PO SCH (08:48)
[2018-10-28] MEDS: CELECOXIB 200 MG CAP PO SCH ×2 (08:48→16:58)
[2018-10-28] MEDS: LOSARTAN POTASSIUM 50 MG TAB PO SCH (08:48)
[2018-10-28] MEDS: NYSTATIN 100,000 U/GM PWD 15GM TP SCH ×2 (09:00→20:40)
[2018-10-28] MEDS: HYDROCORTISONE 1% CR 28.35 GM TP SCH ×2 (09:00→20:40)
[2018-10-28 15:40] VITALS: BP 137/67
--- NOTE | 2018-10-28 16:12 | Hospitalist Progress Note ---
Subjective Progress Notes Subjective No new complaints. Physical Exam Vital Signs Date Time Temp Pulse Resp B/P (MAP) Pulse Ox O2 Delivery O2 Flow Rate FiO2 10/28/18 15:40 97.1 109 20 137/67 (90) 95 Room Air 10/28/18 11:05 2.0 Intake and Output 10/28/18 07:00 Intake Total 1020 ml Balance 1020 ml Intake Oral 1020 ml # Voids 5 # Bowel Movements 2 General Appearance: Alert, Awake, No Acute Distress Neuro: No Gross deficits Cardiovascular: Regular Rate and Rhythm Respiratory: Clear to Auscultation GI: Soft and Non-Tender Extremities: Warm, Perfused, Edema (2+. ) Integumentary: Other (R knee incision clean and dry without redness or drainage. ) Psych: Alert & Oriented X3, Appropriate Mood & Affect Result Diagram: 10/27/18 0540 10/27/18 0540 Assessment and Plan Problems: (1) Septic arthritis Status: Acute Assessment & Plan: Post explant and wash out, growing E coli from joint aspir ate outside hospital. She does have Abx impregnated spacer placed to her right knee. Will cover with ceftriaxone based on susceptibility data from outside hospital. She had PICC placed 09/30. She will require 6 weeks IV antibiotics with last day of antibiotics of 11/10/18. Likely source of contamination was E.Coli noted in urine cx performed in ER 04/24. Sensitivities from urine cx on 04/24 are matching current sensitivities from cultures of R knee. (2) HTN (hypertension) Status: Chronic Assessment & Plan: Continue chronic HCTZ, losartan. (3) GERD (gastroesophageal reflux disease) Status: Chronic Assessment & Plan: Continue chronic PPI. (4) Hepatitis Status: Chronic Assessment & Plan: The patient has liver disease, fatty liver per her report. She does have esophageal varices and portal hypertension per CT report done 09/29/18. She sees a GI specialist in [place]. She had been on chronic lactulose but admits she had not been taking it twice daily. She has been refusing to take lactulose on ECF. Ammonia level now increased so the patient is back on lactulose. (5) Itching Status: Acute Assessment & Plan: Looks like probably secondary to dry skin. She has been using lotion without relief. She will get cortisone cream to affected areas twice daily (lower and upper extremities). Time Spent on Plan of Care: < 30 min Problem Qualifiers (1) HTN (hypertension): Hypertension type: essential hypertension Qualified Codes: I10 - Essential (primary) hypertension FAUSTO ORTEGA MD Oct 28, 2018 16:12
[2018-10-28] MEDS: FLUTICASONE PROP 0.05% 16 GM SCH (20:40)
[2018-10-28] MEDS: DULoxetine HCL 30 MG CAPCR PO SCH (20:41)
[2018-10-28] MEDS: cefTRIAXone(*) 2 GM VIAL 2 GM in NS(*) 0.9% 100 ML ADDVANT BAG 100 ML IVPB SCH (20:41)
[2018-10-28] MEDS: MONTELUKAST SODIUM 10 MG TAB PO SCH (20:41)
[2018-10-29] MEDS: PANTOPRAZOLE SOD 40 MG TABEC PO SCH (05:25)
[2018-10-29 07:33] VITALS: BP 119/68
[2018-10-29] MEDS: oxyCODONE HCL 5 MG CAP PO PRN (07:36)
[2018-10-29] MEDS: OXYBUTYNIN CHL 5 MG TAB PO SCH ×2 (08:41→20:32)
[2018-10-29] MEDS: CELECOXIB 200 MG CAP PO SCH ×2 (08:41→17:09)
[2018-10-29] MEDS: ASPIRIN 325 MG ENTERIC COATED PO SCH (08:42)
[2018-10-29] MEDS: HYDROCHLOROTHIAZIDE 25 MG TAB PO SCH (08:42)
[2018-10-29] MEDS: NYSTATIN 100,000 U/GM PWD 15GM TP SCH ×2 (08:42→20:35)
[2018-10-29] MEDS: LOSARTAN POTASSIUM 50 MG TAB PO SCH (08:42)
[2018-10-29] MEDS: HYDROCORTISONE 1% CR 28.35 GM TP SCH ×2 (08:42→20:35)
[2018-10-29] MEDS: LACTULOSE 10 GM/15 ML UDCUP PO SCH (08:42)
--- NOTE | 2018-10-29 12:18 | NUR ---
Physical Therapy Impression Late Entry for visit completed and billed on 10/28/18. Pt able to bear weight through both UE's on R) rail and hop up a much smaller step. Pt not yet able to hop up height of her own steps at home, while maintaining TTWB. Physical Therapy Goals 1. Mod I bed mobility. 2. Mod I transfers. 3. Mod I gait maintaining PWB x 150' with RW. 4. Ascend/descend 2 stairs maintaining PWB SBA. Patient's Goals
--- NOTE | 2018-10-29 14:30 | NUR ---
Physical Therapy Impression PT reviewed appropriate seated LE ther-ex as well as standing LE ther-ex, with pt demonstrating good ability to complete exercises with printed exercises. Plan for pt to complete supine ther-ex on MWF and standing and seated ther-ex on tue, thur and sat. Pt is agreeable with this POC. Pt demonstrates Devin for transfers as well as short distance ambulation. Plan for pt to transition to independence in room. PT reiterated importance of use of knee immobilizer when up, use of RW and TTWB status. Pt reports that she will call nursing if needed. Physical Therapy Goals 1. Mod I bed mobility. 2. Mod I transfers. 3. Mod I gait maintaining PWB x 150' with RW. 4. Ascend/descend 2 stairs maintaining PWB SBA. Patient's Goals
[2018-10-29 16:15] VITALS: BP 125/75
[2018-10-29] MEDS: DULoxetine HCL 30 MG CAPCR PO SCH (20:32)
[2018-10-29] MEDS: MONTELUKAST SODIUM 10 MG TAB PO SCH (20:32)
[2018-10-29] MEDS: FLUTICASONE PROP 0.05% 16 GM SCH (20:35)
[2018-10-29] MEDS: cefTRIAXone(*) 2 GM VIAL 2 GM in NS(*) 0.9% 100 ML ADDVANT BAG 100 ML IVPB SCH (20:35)
[2018-10-30] MEDS: PANTOPRAZOLE SOD 40 MG TABEC PO SCH (05:58)
[2018-10-30 08:00] VITALS: BP 133/57
[2018-10-30] MEDS: CELECOXIB 200 MG CAP PO SCH ×2 (09:16→17:41)
[2018-10-30] MEDS: LOSARTAN POTASSIUM 50 MG TAB PO SCH (09:16)
[2018-10-30] MEDS: HYDROCHLOROTHIAZIDE 25 MG TAB PO SCH (09:16)
[2018-10-30] MEDS: OXYBUTYNIN CHL 5 MG TAB PO SCH ×2 (09:16→21:29)
[2018-10-30] MEDS: ASPIRIN 325 MG ENTERIC COATED PO SCH (09:17)
[2018-10-30] MEDS: HYDROCORTISONE 1% CR 28.35 GM TP SCH ×2 (09:18→21:00)
[2018-10-30] MEDS: NYSTATIN 100,000 U/GM PWD 15GM TP SCH ×2 (09:18→21:29)
[2018-10-30] MEDS: LACTULOSE 10 GM/15 ML UDCUP PO SCH (09:21)
--- NOTE | 2018-10-30 11:17 | NUR ---
30-day MDS completed with pt. C: 15, D: 4, E: no concerns, Q: pt plans to return to community, no referrals made yet but may be needed.
--- NOTE | 2018-10-30 14:42 | PT ECF NOTE ---
Type of Note: Discharge Summary 10/30/18 Primary Medical Diagnosis: s/p I&D R knee Physical Therapy Evaluation Date: 10/02/18 PRECAUTIONS: TTWB/PWB R LE; knee immobilizer on when up ambulating SUBJECTIVE: Prior Hospitalization: [facility] acute 09/29/18-10/02/18 for I&D Prior Level of Function: Independent with functional mobility, ADLs, and IADLs Prior Living Status: Single level house, Alone Community Services: No known needs Home Accessibility: Stairs with rails Equipment Owned: Front wheeled walker Medical Complications/Past Medical History: See Pogoseat Psychosocial Support: Supportive family Pain Scale (0-10): painful R knee, no number assigned OBJECTIVE: Strength: WFL L LE ROM: (please note any abnormalities) R LE in knee immobilizer Bed Mobility: Mod I with use of leg service parts driver Transfers: SBA/Mod I Assistive Device: Front wheeled walker Gait: SBA x120' Assistive device: Front wheeled walker Stairs: failed attempted stair negotiation at PWB ASSESSMENT: Pt has met all PT goals with the exception of stair negotiation. Pt is planning to remain in ECF until follow-up surgery she reported is scheduled on 11/10. At that time, Pt's weightbearing status is likely to be updated to WBAT, thus, stair negotiation will be more appropriate at that time. Pt to perform HEP as instructed M-Sat and no longer requires skilled PT at this time. Problem List/Current Limitations: Pain, Decreased WB, Decreased activity tolerated, Decreased strength, Generalized weakness Short Term Goals: All met with the exception of stair negotiation (See above) 1. Mod I bed mobility. 2. Mod I transfers. 3. Mod I gait maintaining PWB x 150' with RW. 4. Ascend/descend 2 stairs maintaining PWB SBA. Skilled Nursing Goals: Return home Patient Goals: Return home Rehabilitation Prognosis: Good Barriers for Discharge: none identified PLAN: DC as Pt is independent with functional mobility (except stairs, see above) to HEP for which Pt as demonstrated independence. Instruction in stair negotiation to be done following scheduled knee revision. Thank you for this referral. If you have any questions, concerns, or comments about this report or plan, please contact me at . Ambar Iraheta, PT, DPT, GCS MTDD
[2018-10-30] MEDS: oxyCODONE HCL 5 MG CAP PO PRN (16:34)
[2018-10-30 17:10] VITALS: BP 145/71
[2018-10-30] MEDS: cefTRIAXone(*) 2 GM VIAL 2 GM in NS(*) 0.9% 100 ML ADDVANT BAG 100 ML IVPB SCH (21:28)
[2018-10-30] MEDS: MONTELUKAST SODIUM 10 MG TAB PO SCH (21:29)
[2018-10-30] MEDS: DULoxetine HCL 30 MG CAPCR PO SCH (21:29)
[2018-10-30] MEDS: FLUTICASONE PROP 0.05% 16 GM SCH (21:34)
[2018-10-31] MEDS: PANTOPRAZOLE SOD 40 MG TABEC PO SCH (05:21)
[2018-10-31 07:20] VITALS: BP 105/58
[2018-10-31] MEDS: ASPIRIN 325 MG ENTERIC COATED PO SCH (08:53)
[2018-10-31] MEDS: CELECOXIB 200 MG CAP PO SCH ×2 (08:53→17:32)
[2018-10-31] MEDS: OXYBUTYNIN CHL 5 MG TAB PO SCH ×2 (08:53→20:44)
[2018-10-31] MEDS: LACTULOSE 10 GM/15 ML UDCUP PO SCH (08:54)
[2018-10-31] MEDS: HYDROCHLOROTHIAZIDE 25 MG TAB PO SCH (09:00)
[2018-10-31] MEDS: LOSARTAN POTASSIUM 50 MG TAB PO SCH (09:00)
[2018-10-31] MEDS: HYDROCORTISONE 1% CR 28.35 GM TP SCH ×2 (09:00→20:45)
[2018-10-31] MEDS: NYSTATIN 100,000 U/GM PWD 15GM TP SCH ×2 (09:00→20:44)
[2018-10-31 15:20] VITALS: BP 106/68
[2018-10-31] MEDS: MONTELUKAST SODIUM 10 MG TAB PO SCH (20:44)
[2018-10-31] MEDS: DULoxetine HCL 30 MG CAPCR PO SCH (20:44)
[2018-10-31] MEDS: cefTRIAXone(*) 2 GM VIAL 2 GM in NS(*) 0.9% 100 ML ADDVANT BAG 100 ML IVPB SCH (20:44)
[2018-10-31] MEDS: FLUTICASONE PROP 0.05% 16 GM SCH (20:44)
[2018-11-01] MEDS: PANTOPRAZOLE SOD 40 MG TABEC PO SCH (06:20)
[2018-11-01 07:45] VITALS: BP 138/70
[2018-11-01] MEDS: ASPIRIN 325 MG ENTERIC COATED PO SCH (08:46)
[2018-11-01] MEDS: HYDROCHLOROTHIAZIDE 25 MG TAB PO SCH (08:46)
[2018-11-01] MEDS: OXYBUTYNIN CHL 5 MG TAB PO SCH ×2 (08:46→21:42)
[2018-11-01] MEDS: LOSARTAN POTASSIUM 50 MG TAB PO SCH (08:46)
[2018-11-01] MEDS: CELECOXIB 200 MG CAP PO SCH ×2 (08:46→17:35)
[2018-11-01] MEDS: LACTULOSE 10 GM/15 ML UDCUP PO SCH (08:46)
[2018-11-01] MEDS: HYDROCORTISONE 1% CR 28.35 GM TP SCH ×2 (09:00→21:00)
[2018-11-01] MEDS: NYSTATIN 100,000 U/GM PWD 15GM TP SCH ×3 (09:00→21:43)
[2018-11-01 14:55] VITALS: BP 135/64
[2018-11-01] MEDS: DULoxetine HCL 30 MG CAPCR PO SCH (21:42)
[2018-11-01] MEDS: cefTRIAXone(*) 2 GM VIAL 2 GM in NS(*) 0.9% 100 ML ADDVANT BAG 100 ML IVPB SCH (21:42)
[2018-11-01] MEDS: MONTELUKAST SODIUM 10 MG TAB PO SCH (21:42)
[2018-11-01] MEDS: FLUTICASONE PROP 0.05% 16 GM SCH (21:43)
[2018-11-02] MEDS: PANTOPRAZOLE SOD 40 MG TABEC PO SCH (06:17)
[2018-11-02 08:30] VITALS: BP 144/60
[2018-11-02] MEDS: OXYBUTYNIN CHL 5 MG TAB PO SCH ×2 (08:58→20:47)
[2018-11-02] MEDS: LOSARTAN POTASSIUM 50 MG TAB PO SCH (08:58)
[2018-11-02] MEDS: CELECOXIB 200 MG CAP PO SCH ×2 (08:58→17:12)
[2018-11-02] MEDS: LACTULOSE 10 GM/15 ML UDCUP PO SCH (08:58)
[2018-11-02] MEDS: ASPIRIN 325 MG ENTERIC COATED PO SCH (08:58)
[2018-11-02] MEDS: HYDROCHLOROTHIAZIDE 25 MG TAB PO SCH (08:58)
[2018-11-02] MEDS: HYDROCORTISONE 1% CR 28.35 GM TP SCH ×2 (09:00→20:47)
--- NOTE | 2018-11-02 14:20 | Medical Nutrition Therapy ---
Nutrition Anthropometrics Height (Inches): 65.00 Height (Calculated Centimeters: 165.869209 Weight (Pounds): 225 Weight (Calculated Kilograms): 102.200 Ezequiel Nutrition Score: Adequate Ezequiel Nutrition Risk Score: 18 Dietary Referral Nutrition Risk Factors: Nutrition Risk Comment: Physical Findings Physical Appearance: Obese BMI 30-39 Skin Appearance Skin Appearance: Edema Edema Location Modifier: Both Edema Location: Foot Type of Edema: Degree of Edema: 1+ Gastrointestinal Symptoms GI Symtoms: Tube Present: Bowel Sounds: Recent Bowel Pattern: Stool Characteristics: Nutritional Diagnosis Nutritional Risk Acuity 2: Sepsis Nutritional Risk Acuity 4: Good Appetite Past Medical History: HX of GERD, HTN, OSP, depression, urinary incontinence, hypercholesterolemia, hepatitis with jaundice Nutritional Acuity: 2-Moderate Nutrition Diagnosis: Increased Nutrient Needs Nutrition Etiology: Physiological Causes Nutrition Problem/Etiology/Sym: Increased nutrient needs as relatead to physiological causes as evidenced by septic arthritis, and recent surgery. Energy Requirement: 1940 (M-St Jeor X 1.1 (TEF) X1.2 (activity factor)) Adjusted Energy Requirement Re: 1440 (-500 for 1# wt loss/wk) Protein Requirement: 94 (1.0g protein/ kg, elevated for healing) Fluid Requirement: 2350 (25mL/kg) Diet Type: Regular Nutrition Intervention: Cont diet as ordered, Encourage intake Drug: Diuretics Nutrition Monitoring & Eval Nutrition Goals: Eat 75-100% Meal Nutrition Follow-Up: Good Intake RD Patient Assessment Time: [address] Assessment Type: RD Re-Assessment Patient Nutrition Acuity: 2-Moderate Follow Up Date: Nov 10, 2018 Nutritional Comment: Pt admitted after TKA with infection. Dx with septic arthritis. Hx of GERD, HTN, depression, urinary incontinence, hepatitis with jaundice, and hypercholesterolemia. Currently on MARKIE with 100% intakes. No labs to report at this time. Pt on hydrochlorothiazide, may recommend K supplement. -AKG 2/ Pt cont on regular diet, eating 75-100% of meals. Pt on K+ depleting duiretic, K+ is WNR at 4.5. Alb low at 2.3, H/H low at 9.9/28.7, CPR elevated at 6.7. Will cont to monitor and encourage intake. BK 10/12 Pt cont MARKIE. Eating 100% of most meals. Wt is up 26#/10 days. Pt went from non pitting edema BLE to 2+ pitting edema BLE. Pt cont diuretic. Anticipate wt loss when edema resolves. Will cont to monitor and encourage intake. BK 10/19 Pt cont on MARKIE. Eating 75- 100% of meals. No new wt. Pt currently has non-pitting edema. Anticipate wt loss. Will cont to monitor and encourage intake. BK. 10/26 Pt cont MARKIE. Eating 100% of most meals. Wt up 9.6% since admission. Pt has 1+ pitting edema. Pt is recieving duiretic. Anticipate wt loss when edema resolved. BK / Pt cont MARKIE. Eating 100% of most meals. Wt stable past 3 weeks however cont up 8.1% from admission. Pt has 1+ pitting edema. Pt is recieving K+ depleting duiretic. K+ at 4.1 is WNR. Anticipate wt loss when edema resolved. SAMEER CLARK Nov 02, 2018 14:20
[2018-11-02 15:55] VITALS: BP 127/66
[2018-11-02] MEDS: cefTRIAXone(*) 2 GM VIAL 2 GM in NS(*) 0.9% 100 ML ADDVANT BAG 100 ML IVPB SCH (20:46)
[2018-11-02] MEDS: NYSTATIN 100,000 U/GM PWD 15GM TP SCH (20:47)
[2018-11-02] MEDS: MONTELUKAST SODIUM 10 MG TAB PO SCH (20:47)
[2018-11-02] MEDS: DULoxetine HCL 30 MG CAPCR PO SCH (20:47)
[2018-11-02] MEDS: FLUTICASONE PROP 0.05% 16 GM SCH (20:47)
[2018-11-03] MEDS: oxyCODONE HCL 5 MG CAP PO PRN (01:41)
[2018-11-03] MEDS: PANTOPRAZOLE SOD 40 MG TABEC PO SCH (05:58)
[2018-11-03 06:19] LABS: PLATELET COUNT, AUTOMATED 136 K/uL (150-450)
[2018-11-03 07:20] VITALS: BP 124/67
[2018-11-03] MEDS: LOSARTAN POTASSIUM 50 MG TAB PO SCH (08:31)
[2018-11-03] MEDS: OXYBUTYNIN CHL 5 MG TAB PO SCH ×2 (08:31→20:17)
[2018-11-03] MEDS: CELECOXIB 200 MG CAP PO SCH ×2 (08:31→16:51)
[2018-11-03] MEDS: HYDROCHLOROTHIAZIDE 25 MG TAB PO SCH (08:31)
[2018-11-03] MEDS: LACTULOSE 10 GM/15 ML UDCUP PO SCH (08:32)
[2018-11-03] MEDS: HYDROCORTISONE 1% CR 28.35 GM TP SCH ×2 (08:33→20:17)
[2018-11-03] MEDS: NYSTATIN 100,000 U/GM PWD 15GM TP SCH ×2 (08:33→20:16)
--- NOTE | 2018-11-03 14:00 | Consultant Pharmacy Review ---
Room Service Waiter Review Medication Review Do All Mecications have a Diag: Yes Beers Criteria Medication 2014 Proton Pump Inhibitors: Pantoprazole (Patient has chronic GERD and is on Pantoprazole 40 mg Qday. monitor for risk of falls and fracture) Other General Cautions This is the 30-day medications review Pneumococcal Vaccine HX Pneumo Vac ([id number]): No HX Pneumo Vac (Pneumovax): No Comments Regarding the Review Patient on Rocephin 2 Gm Qday for a total of 6 weeks for Septic arthritis. Last day of antibiotic is 11/10/18. YESSENIA ALLEN V Nov 03, 2018 14:00
[2018-11-03 15:50] VITALS: BP 146/59
[2018-11-03] MEDS: cefTRIAXone(*) 2 GM VIAL 2 GM in NS(*) 0.9% 100 ML ADDVANT BAG 100 ML IVPB SCH (20:17)
[2018-11-03] MEDS: FLUTICASONE PROP 0.05% 16 GM SCH (20:17)
[2018-11-03] MEDS: DULoxetine HCL 30 MG CAPCR PO SCH (20:18)
[2018-11-03] MEDS: MONTELUKAST SODIUM 10 MG TAB PO SCH (20:18)
[2018-11-04] MEDS: PANTOPRAZOLE SOD 40 MG TABEC PO SCH (06:30)
[2018-11-04] MEDS: oxyCODONE HCL 5 MG CAP PO PRN (06:30)
[2018-11-04 08:30] VITALS: BP 139/59
[2018-11-04] MEDS: HYDROCORTISONE 1% CR 28.35 GM TP SCH ×2 (09:00→20:32)
[2018-11-04] MEDS: NYSTATIN 100,000 U/GM PWD 15GM TP SCH ×2 (09:00→20:31)
[2018-11-04] MEDS: LACTULOSE 10 GM/15 ML UDCUP PO SCH (10:08)
[2018-11-04] MEDS: OXYBUTYNIN CHL 5 MG TAB PO SCH ×2 (10:08→20:33)
[2018-11-04] MEDS: CELECOXIB 200 MG CAP PO SCH ×2 (10:08→16:50)
[2018-11-04] MEDS: LOSARTAN POTASSIUM 50 MG TAB PO SCH (10:08)
[2018-11-04] MEDS: HYDROCHLOROTHIAZIDE 25 MG TAB PO SCH (10:08)
[2018-11-04] MEDS ORDERED: SALINE 0.65% NAS SPR 44 ML BTL PRN (16:10)
--- NOTE | 2018-11-04 16:26 | Hospitalist Progress Note ---
Subjective Progress Notes Subjective Complains of a stuffy nose. Has had a nose bleed after blowing her nose. Has gas due to lactulose. Physical Exam Vital Signs Date Time Temp Pulse Resp B/P (MAP) Pulse Ox O2 Delivery O2 Flow Rate FiO2 11/04/18 09:30 97 Room Air 11/04/18 08:30 98.0 85 16 139/59 (85) 11/04/18 00:10 2.0 Intake and Output 11/04/18 06:59 Intake Total 960 ml Balance 960 ml Intake Oral 960 ml # Voids 2 # Bowel Movements 1 General Appearance: Alert, Awake, No Acute Distress Eyes: PERRLA Cardiovascular: Regular Rate and Rhythm (DRAKE) Respiratory: Clear to Auscultation GI: Soft and Non-Tender Musculoskeletal: Other (R knee with well healed surgical scar. No redness, drainage or increased warmth.) Integumentary: Other (Faint pink rash over lower miranda medially. No warmth to touch. No open lesions or drainage.) Psych: Appropriate Mood & Affect Result Diagram: 11/03/18 0554 11/03/18 0605 Assessment and Plan Problems: (1) Septic arthritis Status: Acute Assessment & Plan: Post explant and wash out, growing E coli from joint aspirate outside hospital. She does have Abx impregnated spacer placed to her right knee. Will cover with ceftriaxone based on susceptibility data from outside hospital. She had PICC placed 09/30. She will require 6 weeks IV antibiot ics with last day of antibiotics of 11/10/18. Likely source of contamination was E.Coli noted in urine cx performed in ER 04/24. Sensitivities from urine cx on 04/24 are matching current sensitivities from cultures of R knee. Will repeat labs on 11/09 prior to surgery 11/10. (2) HTN (hypertension) Status: Chronic Assessment & Plan: Continue chronic HCTZ, losartan. (3) GERD (gastroesophageal reflux disease) Status: Chronic Assessment & Plan: Continue chronic PPI. (4) Hepatitis Status: Chronic Assessment & Plan: The patient has liver disease, fatty liver per her report. She does have esophageal varices and portal hypertension per CT report done 09/29/18. She sees a GI specialist in [place]. She had been on chronic lactulose but admits she had not been taking it twice daily. She has been refusing to take lactulose on ECF. Ammonia level increased off of treatment so the patient is back on lactulose. Will add simethicone as the lactulose causes gas. (5) Itching Status: Acute Assessment & Plan: Looks like probably secondary to dry skin. She has been using lotion without relief. She will get cortisone cream to affected areas twice daily (lower and upper extremities). (6) Bloody nose Status: Acute Assessment & Plan: Due to dry mucosa and blowing her nose. Will try ocean spray prn. Time Spent on Plan of Care: < 30 min Problem Qualifiers (1) HTN (hypertension): Hypertension type: essential hypertension Qualified Codes: I10 - Essential (primary) hypertension FAUSTO ORTEGA MD Nov 04, 2018 16:26
[2018-11-04 18:39] VITALS: BP 126/62
[2018-11-04] MEDS: MONTELUKAST SODIUM 10 MG TAB PO SCH (20:32)
[2018-11-04] MEDS: FLUTICASONE PROP 0.05% 16 GM SCH (20:32)
[2018-11-04] MEDS: cefTRIAXone(*) 2 GM VIAL 2 GM in NS(*) 0.9% 100 ML ADDVANT BAG 100 ML IVPB SCH (20:32)
[2018-11-04] MEDS: DULoxetine HCL 30 MG CAPCR PO SCH (20:33)
[2018-11-05] MEDS: PANTOPRAZOLE SOD 40 MG TABEC PO SCH (06:32)
[2018-11-05 08:15] VITALS: BP 118/49
[2018-11-05] MEDS: LACTULOSE 10 GM/15 ML UDCUP PO SCH (09:02)
[2018-11-05] MEDS: HYDROCORTISONE 1% CR 28.35 GM TP SCH ×2 (09:02→20:25)
[2018-11-05] MEDS: oxyCODONE HCL 5 MG CAP PO PRN ×2 (09:03→23:47)
[2018-11-05] MEDS: OXYBUTYNIN CHL 5 MG TAB PO SCH ×2 (09:03→20:25)
[2018-11-05] MEDS: HYDROCHLOROTHIAZIDE 25 MG TAB PO SCH (09:03)
[2018-11-05] MEDS: CELECOXIB 200 MG CAP PO SCH ×2 (09:03→17:05)
[2018-11-05] MEDS: LOSARTAN POTASSIUM 50 MG TAB PO SCH (09:03)
[2018-11-05] MEDS: NYSTATIN 100,000 U/GM PWD 15GM TP SCH ×2 (09:03→20:24)
[2018-11-05 17:30] VITALS: BP 130/72
[2018-11-05] MEDS: FLUTICASONE PROP 0.05% 16 GM SCH (20:24)
[2018-11-05] MEDS: cefTRIAXone(*) 2 GM VIAL 2 GM in NS(*) 0.9% 100 ML ADDVANT BAG 100 ML IVPB SCH (20:25)
[2018-11-05] MEDS: DULoxetine HCL 30 MG CAPCR PO SCH (20:25)
[2018-11-05] MEDS: MONTELUKAST SODIUM 10 MG TAB PO SCH (20:25)
[2018-11-06] MEDS: PANTOPRAZOLE SOD 40 MG TABEC PO SCH (06:20)
[2018-11-06 07:35] VITALS: BP 121/54
[2018-11-06] MEDS: oxyCODONE HCL 5 MG CAP PO PRN ×2 (07:44→20:37)
[2018-11-06] MEDS: HYDROCHLOROTHIAZIDE 25 MG TAB PO SCH (08:44)
[2018-11-06] MEDS: NYSTATIN 100,000 U/GM PWD 15GM TP SCH ×2 (08:44→20:24)
[2018-11-06] MEDS: OXYBUTYNIN CHL 5 MG TAB PO SCH ×2 (08:44→20:25)
[2018-11-06] MEDS: LOSARTAN POTASSIUM 50 MG TAB PO SCH (08:44)
[2018-11-06] MEDS: HYDROCORTISONE 1% CR 28.35 GM TP SCH ×2 (08:44→20:25)
[2018-11-06] MEDS: CELECOXIB 200 MG CAP PO SCH ×2 (08:44→17:29)
[2018-11-06] MEDS: LACTULOSE 10 GM/15 ML UDCUP PO SCH (08:44)
[2018-11-06 16:44] VITALS: BP 110/62
[2018-11-06] MEDS: cefTRIAXone(*) 2 GM VIAL 2 GM in NS(*) 0.9% 100 ML ADDVANT BAG 100 ML IVPB SCH (20:24)
[2018-11-06] MEDS: MONTELUKAST SODIUM 10 MG TAB PO SCH (20:25)
[2018-11-06] MEDS: DULoxetine HCL 30 MG CAPCR PO SCH (20:25)
[2018-11-06] MEDS: FLUTICASONE PROP 0.05% 16 GM SCH (20:25)
[2018-11-06] MEDS: SIMETHICONE 80 MG CHEW CHEW PRN (20:37)
[2018-11-06] MEDS: NS(*) 0.9% 250 ML BAG 250 ML IV PRN (20:42)
[2018-11-07] MEDS: PANTOPRAZOLE SOD 40 MG TABEC PO SCH (06:35)
[2018-11-07 08:15] VITALS: BP 134/60
[2018-11-07] MEDS: HYDROCHLOROTHIAZIDE 25 MG TAB PO SCH (08:53)
[2018-11-07] MEDS: HYDROCORTISONE 1% CR 28.35 GM TP SCH ×2 (08:53→21:07)
[2018-11-07] MEDS: CELECOXIB 200 MG CAP PO SCH ×2 (08:53→17:46)
[2018-11-07] MEDS: LOSARTAN POTASSIUM 50 MG TAB PO SCH (08:53)
[2018-11-07] MEDS: oxyCODONE HCL 5 MG CAP PO PRN ×2 (08:53→21:07)
[2018-11-07] MEDS: OXYBUTYNIN CHL 5 MG TAB PO SCH ×2 (08:53→21:04)
[2018-11-07] MEDS: NYSTATIN 100,000 U/GM PWD 15GM TP SCH ×2 (08:54→21:04)
[2018-11-07] MEDS: LACTULOSE 10 GM/15 ML UDCUP PO SCH (08:54)
[2018-11-07] MEDS: SIMETHICONE 80 MG CHEW CHEW PRN ×2 (09:27→21:07)
[2018-11-07 15:20] VITALS: BP 115/41
[2018-11-07] MEDS: DULoxetine HCL 30 MG CAPCR PO SCH (21:04)
[2018-11-07] MEDS: MONTELUKAST SODIUM 10 MG TAB PO SCH (21:04)
[2018-11-07] MEDS: cefTRIAXone(*) 2 GM VIAL 2 GM in NS(*) 0.9% 100 ML ADDVANT BAG 100 ML IVPB SCH (21:04)
[2018-11-07] MEDS: FLUTICASONE PROP 0.05% 16 GM SCH (21:07)
[2018-11-08] MEDS: PANTOPRAZOLE SOD 40 MG TABEC PO SCH (05:56)
[2018-11-08 08:20] VITALS: BP 110/63
[2018-11-08] MEDS: LOSARTAN POTASSIUM 50 MG TAB PO SCH (08:55)
[2018-11-08] MEDS: HYDROCHLOROTHIAZIDE 25 MG TAB PO SCH (08:55)
[2018-11-08] MEDS: LACTULOSE 10 GM/15 ML UDCUP PO SCH (08:55)
[2018-11-08] MEDS: OXYBUTYNIN CHL 5 MG TAB PO SCH ×2 (08:55→21:02)
[2018-11-08] MEDS: NYSTATIN 100,000 U/GM PWD 15GM TP SCH ×2 (08:55→21:00)
[2018-11-08] MEDS: CELECOXIB 200 MG CAP PO SCH ×2 (08:55→17:37)
[2018-11-08] MEDS: HYDROCORTISONE 1% CR 28.35 GM TP SCH ×2 (08:56→21:01)
[2018-11-08 16:06] VITALS: BP 125/67
[2018-11-08] MEDS: FLUTICASONE PROP 0.05% 16 GM SCH (21:02)
[2018-11-08] MEDS: SIMETHICONE 80 MG CHEW CHEW PRN (21:02)
[2018-11-08] MEDS: DULoxetine HCL 30 MG CAPCR PO SCH (21:02)
[2018-11-08] MEDS: cefTRIAXone(*) 2 GM VIAL 2 GM in NS(*) 0.9% 100 ML ADDVANT BAG 100 ML IVPB SCH (21:02)
[2018-11-08] MEDS: MONTELUKAST SODIUM 10 MG TAB PO SCH (21:02)
[2018-11-08] MEDS: oxyCODONE HCL 5 MG CAP PO PRN (21:03)
[2018-11-09] MEDS: PANTOPRAZOLE SOD 40 MG TABEC PO SCH (05:31)
[2018-11-09 05:39] LABS: PLATELET COUNT, AUTOMATED 121 K/uL (150-450)
[2018-11-09 07:50] VITALS: BP 137/73
[2018-11-09] MEDS: OXYBUTYNIN CHL 5 MG TAB PO SCH ×2 (08:36→21:01)
[2018-11-09] MEDS: SIMETHICONE 80 MG CHEW CHEW PRN ×2 (08:36→21:01)
[2018-11-09] MEDS: CELECOXIB 200 MG CAP PO SCH ×2 (08:36→17:28)
[2018-11-09] MEDS: LOSARTAN POTASSIUM 50 MG TAB PO SCH (08:36)
[2018-11-09] MEDS: HYDROCORTISONE 1% CR 28.35 GM TP SCH ×2 (08:37→21:00)
[2018-11-09] MEDS: HYDROCHLOROTHIAZIDE 25 MG TAB PO SCH (08:37)
[2018-11-09] MEDS: NYSTATIN 100,000 U/GM PWD 15GM TP SCH ×2 (08:37→21:00)
[2018-11-09] MEDS: LACTULOSE 10 GM/15 ML UDCUP PO SCH (08:38)
--- NOTE | 2018-11-09 11:15 | Medical Nutrition Therapy ---
Nutrition Anthropometrics Height (Inches): 65.00 Height (Calculated Centimeters: 165.152242 Weight (Pounds): 226 Weight (Calculated Kilograms): 102.512 BMI: 37.6 Ezequiel Nutrition Score: Adequate Ezequiel Nutrition Risk Score: 18 Dietary Referral Nutrition Risk Factors: Nutrition Risk Comment: Physical Findings Physical Appearance: Obese BMI 30-39 Skin Appearance Skin Appearance: Edema Edema Location Modifier: Right Edema Location: Lower Extremity Type of Edema: Degree of Edema: 1+ Gastrointestinal Symptoms GI Symtoms: Tube Present: Bowel Sounds: Recent Bowel Pattern: Stool Characteristics: Nutritional Diagnosis Nutritional Risk Acuity 2: Sepsis Nutritional Risk Acuity 4: Good Appetite Past Medical History: HX of GERD, HTN, OSP, depression, urinary incontinence, hypercholesterolemia, hepatitis with jaundice Nutritional Acuity: 2-Moderate Nutrition Diagnosis: Increased Nutrient Needs Nutrition Etiology: Physiological Causes Nutrition Problem/Etiology/Sym: Increased nutrient needs as relatead to physiological causes as evidenced by septic arthritis, and recent surgery. Energy Requirement: 1940 (M-St Jeor X 1.1 (TEF) X1.2 (activity factor)) Adjusted Energy Requirement Re: 1440 (-500 for 1# wt loss/wk) Protein Requirement: 94 (1.0g protein/ kg, elevated for healing) Fluid Requirement: 2350 (25mL/kg) Diet Type: Regular Nutrition Intervention: Cont diet as ordered, Encourage intake Drug: Diuretics Nutrition Monitoring & Eval Nutrition Goals: Eat 75-100% Meal Nutrition Follow-Up: Good Intake RD Patient Assessment Time: [address] Assessment Type: RD Re-Assessment Patient Nutrition Acuity: 2-Moderate Follow Up Date: Nov 17, 2018 Nutritional Comment: Pt admitted after TKA with infection. Dx with septic arthritis. Hx of GERD, HTN, depression, urinary incontinence, hepatitis with jaundice, and hypercholesterolemia. Currently on MARKIE with 100% intakes. No labs to report at this time. Pt on hydrochlorothiazide, may recommend K supplement. -AKG 2/5 Pt cont on regular diet, eating 75-100% of meals. Pt on K+ depleting duiretic, K+ is WNR at 4.5. Alb low at 2.3, H/H low at 9.9/28.7, CPR elevated at 6.7. Will cont to monitor and encourage intake. BK 10/12 Pt cont MARKIE. Eating 100% of most meals. Wt is up 26#/10 days. Pt went from non pitting edema BLE to 2+ pitting edema BLE. Pt cont diuretic. Anticipate wt loss when edema resolves. Will cont to monitor and encourage intake. BK 10/19 Pt cont on MARKIE. Eating 75- 100% of meals. No new wt. Pt currently has non-pitting edema. Anticipate wt loss. Will cont to monitor and encourage intake. BK. 10/26 Pt cont MARKIE. Eating 100% of most meals. Wt up 9.6% since admission. Pt has 1+ pitting edema. Pt is recieving duiretic. Anticipate wt loss when edema resolved. BK 11/02 Pt cont MARKIE. Eating 100% of most meals. Wt stable past 3 weeks however cont up 8.1% from admission. Pt has 1+ pitting edema. Pt is recieving K+ depleting duiretic. K+ at 4.1 is WNR. Anticipate wt loss when edema resolved. BK 11/09: Pt cont MARKIE, eating 100% of most meal. Alb improved but cont low at 2.9. CRP elevated at 5.7. pt on K+ depeting duiretic. K+ of 4 is WNR. Wt cont up from admission but curretnly stable. Will cont to monitor and encourage intake. BK SAMEER FRANCISCO Nov 09, 2018 11:15
--- NOTE | 2018-11-09 15:17 | NUR ---
DC MDS completed with pt. C: 15, D: 05, E: no concerns, Q: pt is being discharged to surgery to have her knee done tomorrow, pt does not want any referrals made at this time as she will be having surgery and unsure of what rehab she will need. Pt reports if she needs HHS, she would like [facility]. SW will notify TCN who will work on pt for DC plans after surgery.
[2018-11-09 16:45] VITALS: BP 136/69
[2018-11-09] MEDS: FLUTICASONE PROP 0.05% 16 GM SCH (21:01)
[2018-11-09] MEDS: cefTRIAXone(*) 2 GM VIAL 2 GM in NS(*) 0.9% 100 ML ADDVANT BAG 100 ML IVPB SCH (21:01)
[2018-11-09] MEDS: oxyCODONE HCL 5 MG CAP PO PRN (21:02)
[2018-11-09] MEDS: DULoxetine HCL 30 MG CAPCR PO SCH (21:02)
[2018-11-09] MEDS: MONTELUKAST SODIUM 10 MG TAB PO SCH (21:02)
[2018-11-10] MEDS: PANTOPRAZOLE SOD 40 MG TABEC PO SCH (05:44)
[2018-11-10 06:12] LABS: PLATELET COUNT, AUTOMATED 117 K/uL (150-450)
[2018-11-10 07:30] VITALS: BP 130/71
--- NOTE | 2018-11-10 07:58 | Hospitalist Depart ---
Discharge Summary Reason for Hosp/Final Diag: (1) Septic arthritis Status: Acute Hospital Course & Plan: Post explant and wash out, growing E coli from joint aspirate outside hospital. She does have Abx impregnated spacer placed to her right knee. Will cover with ceftriaxone based on susceptibility data from outside hospital. She had PICC placed 09/30. She will require 6 weeks IV antibiotics with last day of antibiotics of 11/10/18. Likely source of contamination was E.Coli noted in urine cx performed in ER 04/24. Sensitivities from urine cx on 04/24 are matching current sensitivities from cultures of R knee. Labs done on 11/09 prior to surgery 11/10. She will go to surgery with Dr. Khan today and be admitted to medical floor post-operatively. (2) HTN (hypertension) Status: Chronic Hospital Course & Plan: Continue chronic HCTZ, losartan. (3) GERD (gastroesophageal reflux disease) Status: Chronic Hospital Course & Plan: Continue chronic PPI. (4) Hepatitis Status: Chronic Hospital Course & Plan: The patient has liver disease, fatty liver per her report. She does have esophageal varices and portal hypertension per CT report done 09/29/18. She sees a GI specialist in [place]. She had been on chronic lactulose but admits she had not been taking it twice daily. She has been refusing to take lactulose on ECF. Ammonia level increased off of treatment so the patient is back on lactulose. Will add simethicone as the lactulose causes gas. (5) Itching Status: Acute Hospital Course & Plan: Looks like probably secondary to dry skin. She has been using lotion without relief. She will get cortisone cream to affected areas twi ce daily (lower and upper extremities). (6) Bloody nose Status: Acute Hospital Course & Plan: Due to dry mucosa and blowing her nose. Will try ocean spray prn. Departure Latest Vital Signs Vital Signs 11/09/18 11/10/18 16:45 01:44 Temp 97.8 Pulse 77 Resp 20 B/P (MAP) 136/69 (91) Pulse Ox 96 O2 Delivery Nasal Cannula O2 Flow Rate 2.0 Weight (Pounds): 226 Weight (Ounces): 5.0 Result Diagram: 11/10/18 0542 11/10/1842 Condition: Improved Discharge: Other Facility Discharge Instructions Home Meds Reported Medications Lactulose (LACTULOSE) 10 Gm/15 Ml Solution, 20 GM PO BID 09/28/18 Losartan Potassium (LOSARTAN POTASSIUM) 50 Mg Tablet, 50 MG PO QDAY 11/18/17 Aspirin (ASPIR 81) 81 Mg Tablet.dr, 81 MG PO QDAY, TAB 04/29/16 Omeprazole (OMEPRAZOLE) 40 Mg Capsule.dr, 40 MG PO QDAY, CAP 05/24/15 Montelukast Sodium (SINGULAIR) 10 Mg Tablet, 1 TAB PO QDAY, TAB 02/28/15 Fluticasone Prop 50 Mcg Ns (FLONASE 50 MCG NS) 16 Gm [place].susp, 2 SPRAYS SHERIF QDAY, #48 08/08/14 Hydrochlorothiazide (HYDROCHLOROTHIAZIDE) 25 Mg Tablet, 1 TAB PO QDAY TAKE ONE TABLET BY MOUTH EVERY DAY 08/08/14 Oxybutynin Chloride (Ditropan) 5 Mg Tab, 5 MG PO BID 12/17/11 Discontinued Reported Medications Donepezil Hcl (DONEPEZIL HCL) 5 Mg Tablet, 5 MG PO QDAY, TAB 10/02/18 Diet: Regular Activity: As Tolerated, With Walker Special Instructions: Venous Thromboembolism Antithrombotics Is Pt On Any Antithrombotics?: No Problem Qualifiers (1) HTN (hypertension): Hypertension type: essential hypertension Qualified Codes: I10 - Essential (primary) hypertension CHERI MENDEZ Nov 10, 2018 07:58
--- NOTE | 2018-11-10 09:56 | NUR ---
0950 taken per w/c to pre op, patient has remained NPO since 2230 last night.
== END 2018-11-10 09:50 | disposition still patient (30) | DRG 560 ==
LOC: ECF 10:16
PROVIDERS: ADMIT Internal Medicine; ATTEND Internal Medicine
DX: Z47.33 Aftercare following explantation of knee joint prosthesis (principal); I85.00 Esophageal varices without bleeding; K76.6 Portal hypertension; I10 Essential (primary) hypertension; K21.9 Gastro-esophageal reflux disease without esophagitis; L29.9 Pruritus, unspecified; R04.0 Epistaxis; E78.00 Pure hypercholesterolemia, unspecified; F32.9 Major depressive disorder, single episode, unspecified; M62.81 Muscle weakness (generalized); Z96.651 Presence of right artificial knee joint; Z88.1 Allergy status to other antibiotic agents; Z88.8 Allergy status to other drugs, medicaments and biological substances; M21.861 Other specified acquired deformities of right lower leg; K73.9 Chronic hepatitis, unspecified; K76.0 Fatty (change of) liver, not elsewhere classified
CPT/HCPCS: 36415; 81001; 82040; 82140; 82247; 82310; 82374; 82435; 82565; 82947; 84075; 84132; 84155; 84295; 84450; 84460; 84520; 85025; 85651; 86140; 97162; 97166; J0696; J7040; J7050

== ENCOUNTER 2018-11-10 03:49 | Inpatient (IN) | payer MEDICARE, MEDICAID ==
--- NOTE | 2018-11-09 09:44 | LEVENE H&P ---
DATE OF ADMISSION: November 10, 2018 IDENTIFICATION/CHIEF COMPLAINT Sherie is a 67-year-old woman status post explantation of components and I and D with subsequent antibiotics treatment for infected knee from hematogenous seeding. This second surgery is indicated to reimplant and restore function. PAST MEDICAL HISTORY 1. Biliary disease. 2. Hypertension. 3. Sleep apnea. CURRENT MEDICATIONS 1. Hydrochlorothiazide 25 mg q. day. 2. Oxybutynin 5 mg two tablets q. day. 3. Duloxetine 60 mg p.o. q. day. 4. Montelukast 10 mg one time per day. 5. Aspirin 81 mg p.o. q. day, presently up to 325 p.o. q. day. 6. As-needed vitamins. PAST SURGICAL HISTORY 1. Hysterectomy. 2. Biliary surgery. 3. Knee replacement explantation. 4. Contralateral knee replacement. 5. Colonoscopy. 6. Heart catheterization. 7. Liver biopsy. FAMILY HISTORY Brother with diabetes. SOCIAL HISTORY Negative for tobacco and alcohol use. REVIEW OF SYSTEMS Negative. PHYSICAL EXAMINATION GENERAL: Healthy female. She appears her stated age. HEENT: Normocephalic, atraumatic. NECK: Supple. LUNGS: Clear. HEART: Regular. ABDOMEN: Soft. ORTHOPEDIC EXAMINATION Left knee has a well-healed surgical scar. No erythema noted. No undue swelling. Motion is about 0 to 30. Calves are nontender. Neurovascular function is intact. Postoperative radiographs demonstrate the retained cement spacer. Her current laboratory markers demonstrate a normal sed rate, persistently elevated CRP and liver function test, normal white blood cell count. ASSESSMENT Clearing right knee infection, six weeks out from IV antibiotic treatment after explantation and irrigation and debridement. PLAN Patient appears ready to return to the operating room for second-stage operation. This would consist of either repeat irrigation and debridement versus reimplantation of total knee arthroplasty, i.e. knee revision. The risks of the procedure, benefits and the anticipated rehabilitative course were reviewed. Risks include, but are not limited to, , major medical or anesthetic complication, re or persistent infection, stiffness, scarring, fracture, tendon rupture, instability, implant loosening, migration or failure, persistent or recurrent pain, need for additional surgery and other unforeseen. She understands and wishes to proceed. A signed permit is placed in the chart. No guarantees are given or implied. EDSON
[2018-11-09 11:27] LABS: INR 1.09
[~2018-11-10] VITALS: Ht 165.1 cm; Wt 102.1 kg
[2018-11-10] VITALS (12 sets, daily range): BP systolic 138–179; BP diastolic 66–92
[~2018-11-10 03:49] MED LIST changes: +DONE5TAB29 PO
[2018-11-10] MEDS ORDERED: PROPOFOL EMUL(*) 10MG/ML 20 ML 20 ML ONE (10:26)
[2018-11-10] MEDS ORDERED: LIDOCAINE MPF 1% 5 ML VIAL ONE (10:26)
[2018-11-10] MEDS ORDERED: DEXAMETHASONE SOD 4 MG/ML VIAL ONE (10:26)
[2018-11-10] MEDS ORDERED: ONDANSETRON 4 MG/2 ML VIAL ONE (10:26)
[2018-11-10] MEDS ORDERED: fentaNYL CITR 100 MCG/2 ML AMP ONE ×3 (10:26→16:36)
[2018-11-10] MEDS ORDERED: VANCOMYCIN 1 GM VIAL ONE (12:19)
[2018-11-10] MEDS ORDERED: CELECOXIB 200 MG CAP PO ONE (12:30)
[2018-11-10] MEDS ORDERED: MIDAZOLAM 2 MG/2 ML VIAL IVP PRN (12:30)
[2018-11-10] MEDS ORDERED: CLINDAMYCIN(*) 900 MG/NS 50 ML 50 ML IVPB ONE (12:30)
[2018-11-10] MEDS ORDERED: TRANEXAMIC AC 1000 MG/10ML SDV 1,000 MG in DEXTROSE 5% 50 ML BAG 50 ML IV ONE (12:30)
[2018-11-10] MEDS ORDERED: PREGABALIN 150 MG CAPSULE PO ONE (12:30)
[2018-11-10] MEDS ORDERED: ACETAMINOPHEN 500 MG TAB PO ONE (12:30)
[2018-11-10] MEDS ORDERED: LIDOCAINE/SOD BICARB 8.4% SYR ID ONE (12:30)
[2018-11-10] MEDS ORDERED: ROPIVACAINE/EPI/CLONIDINE/KET 50 ML SYRINGE INJ ONE (12:30)
[2018-11-10] MEDS ORDERED: NORMOSOL R SOLN(*) 1000 ML BAG 1,000 ML IV PRN ×2 (12:30→16:55)
[2018-11-10] MEDS ORDERED: KETAMINE HCL-NS 50 MG/5 ML SYR ONE (12:36)
[2018-11-10] MEDS ORDERED: LABETALOL HCL 25 MG/5 ML SYRINGE ONE (14:07)
[2018-11-10] MEDS ORDERED: DESFLURANE 240 ML BTL INH ONE (15:46)
[2018-11-10] MEDS ORDERED: FLUSH 10 ML SYR IVP PRN (16:55)
[2018-11-10] MEDS ORDERED: ACETAMINOPHEN 325 MG TAB PO PRN (16:55)
[2018-11-10] MEDS ORDERED: ZOLPIDEM TARTRATE 5 MG TAB PO PRN (16:55)
[2018-11-10] MEDS ORDERED: PROMETHAZINE 25 MG/ML 1 ML AMP IVP PRN (16:55)
[2018-11-10] MEDS ORDERED: diphenhydrAMINE 50 MG/ML VIAL IVP PRN (16:55)
[2018-11-10] MEDS ORDERED: diphenhydrAMINE 25 MG CAP PO PRN (16:55)
[2018-11-10] MEDS ORDERED: BENZOCAINE/MENTHOL 1 EACH LOZG PO PRN (16:55)
[2018-11-10] MEDS ORDERED: BISACODYL 10 MG SUPP PR PRN (16:55)
[2018-11-10] MEDS ORDERED: MAGNESIUM HYDROXIDE* 30ML UDCP PO PRN (16:55)
[2018-11-10] MEDS ORDERED: DIAZEPAM 5 MG TAB PO PRN (16:55)
[2018-11-10] MEDS: CELECOXIB 200 MG CAP PO SCH (17:00)
--- NOTE | 2018-11-10 17:03 | RADIOLOGY IMAGING REPORT ---
FACILITY: [facility] PATIENT NAME: Luciana Berg : 1950 MR: [id number] V: [id number] EXAM DATE: [id number] ORDERING PHYSICIAN: SHEN FELDMAN TECHNOLOGIST: Location: [facility] Patient: Luciana Berg : 1950 Visit/Account:[id number] Date of Sevice: 11/10/2018 Exam type: KNEE LIMITED RIGHT History: Post OP Comparison: September 29, 2018. Findings: Two views of the right knee were submitted When compared to the prior study the antibiotic spacers have now been removed from the right knee. T here is a right knee arthroplasty that appears in good anatomic alignment. Skin tyrone and soft tis annabel gas projects over the anterior aspect of this postoperative knee IMPRESSION: 1. As above Report Dictated By: Francesca Wagoner MD at 11/10/2018 4:57 PM Report E-Signed By: Francesca Wagoner MD at 11/10/2018 4:58 PM WSN:[id number]
--- NOTE | 2018-11-10 19:13 | OPERATIVE REPORT 1 ---
EVENT DATE: November 10, 2018 SURGEON: Atul Khan MD ANESTHESIOLOGIST: Sergio Gandara MD ANESTHESIA: General plus spinal. BULLET LUBRICANT MIXER: Devin Briceño PA-C PREOPERATIVE DIAGNOSIS Retained cement antibiotic spacers status post explanation of right total knee arthroplasty for infection. POSTOPERATIVE DIAGNOSIS Retained cement antibiotic spacers status post explanation of right total knee arthroplasty for infection. PROCEDURES PERFORMED 1. Removal of cement antibiotic spacer/implants. 2. Incision and drainage and complete synovectomy. 3. Revision right total knee arthroplasty including all components, femur, tibia, and patella. ESTIMATED BLOOD LOSS Minimal. DRAINS None. SPECIMENS None. COMPLICATIONS None apparent. TOURNIQUET TIME Approximately two hours. IMPLANTS USED [employer]ath[employer] revision system with a total stabilizer femoral component size 4 right, a 2 mm offset adapter, a medial and lateral posterior femoral augment 5 mm thick, a size 5 universal tibial baseplate with a 50 x 12 stem, a C cone, a femoral 14 mm x 100 mm stem, and a 36 mm universal symmetric, all-polyethylene patellar button, and a 19 total stabilized tibial insert, which is X3. INDICATIONS Sherie is a 67-year-old woman who hematogenously seeded her knee which required surgical treatment with removal and I and D. She has had six weeks of IV Rocephin per Infectious Disease recommendations. She is returning at this time due to clinical evidence of improvement as well as normal sed rate. Surgery is indicated to restore stability and function to the knee. DESCRIPTION OF PROCEDURE Patient is taken to the operating room and placed supine on the operating table. General anesthesia is induced. Antibiotics are administered IV. Spinal block is placed by the anesthesiologist. TXA is administered IV. Limb is exsanguinated with an Esmarch bandage. Tourniquet is inflated to 300 mmHg. The old scar is opened, extended a centimeter or two proximal and distal. Dissection is carried down through the skin and scar tissue to the extensor mechanism. Full-thickness flaps are developed far enough medially to allow medial parapatellar arthrotomy be performed. The old stitches are identified and incised to guide the arthrotomy placement. Excess suture material is removed. Wound swabs are taken of the joint. There is benign-appearing bloody fluid. No purulence. No signs of severe residual inflammation or infection. Careful resection of scar tissue and a medial peel are performed off the anteromedial tibia to begin exposure. In order to get the patella out of the way, a lateral release is noted to be required due to scarring hypertrophy. It is performed inside out. Patella is everted. The knee is brought into flexed position. Gradual exposure is obtained until the femoral component could be removed. This removed easily along with the associated blue methacrylate. The carmel to keep the patellofemoral joint is also removed, and then the tibial component is also easily extracted. There has been no additional bone loss during this portion of the procedure. All surfaces are thoroughly irrigated and debrided with curettage of all soft tissue with removal of any devitalized or hypertrophic tissue, and circumferential exposure of the upper tibia is obtained. First, reaming is performed until good endosteal contact is obtained. Intramedullary alignment will be used. Size 5 appears appropriate. Distal taper reaming is performed to accommodate the stem and then proximal reaming for a size C cone is performed. I should note that a small, 2 mm clean-up cut was made prior to reaming for the cone to get down to a nice cortical rim. A good circumferential contained defect is noted, and the rim is entirely intact circumferentially. The trial components are placed and felt to be good. Attention is turned to femoral preparation. Again, intramedullary alignment is used. A Charnley awl is used to find the canal and then reaming up until good endosteal contact is obtained. The distal clean-up cutting guide is inserted over this, positioned relative to the epicondyles for the joint line position, and then a small clean-up cut is made. The appropriate sizers are used and evaluated both in terms of medial-lateral width and AP width, and the size 4 is selected. The four-in-one cutting block is applied and is aligned appropriately with the canal with a +2 offset to assure that this sits properly and does not notch. The four-in-one cutting block is applied, and anterior, posterior, posterior chamfer, and anterior chamfer cuts are made respectively. There is no contact posteriorly, and so a cut through the slotted +5 is done on both sides after assuring that the rotation is appropriate. The trial femoral component is inserted along with an augment, and the tibia is built up with an appropriate liner. Soft tissue balance and stability are assessed. Flexion and extension gaps are well balanced and symmetric, and nice adventism of range of motion and stability are achievable with this combination. Next, the patella is curettaged of all loose debris. Rim is cleaned up with electrocautery and very thin, 1 or 2 mm clean-up cuts made. The 36 is aligned with the old holes, and the appropriate drill bit is used to create the spot for the lugs on the patella. Patella is fenestrated with small perforations to facilitate cement interdigitation. Patella tracks nicely with no-touch technique, and alignment of the patellofemoral joint is good. After all the surfaces are repaired, the components were assembled, and a mix of tobramycin cement is made. The tibia is cemented first, followed by the femur and the patella. Axial load is held in full extension with a trial liner, and then after the cement is polymerized, tourniquet is deflated, hemostasis is assured, and the 19 PS liner fills up the gap ideally, allowing the knee to drop to full extension without hyperextension, providing optimal soft tissue tension and stability. The actual liner is locked into the baseplate. Center peg is inserted into position. The joint is reduced. The arthrotomy is closed in flexion with #2 Ethibond, subcutaneous tissue with 3-0 Vicryl, and skin with surgical tyrone. Xeroform is applied for a dry, sterile dressing. The patient is awakened from anesthesia and taken to the recovery room in stable condition having tolerated the procedure well. EDSON
[2018-11-10] MEDS: CLINDAMYCIN(*) 600 MG/NS 50 ML 50 ML IVPB SCH (20:23)
[2018-11-10] MEDS: APAP/HYDROCODONE 325/7.5 TAB PO PRN (20:23)
[2018-11-10] MEDS ORDERED: SIMETHICONE 80 MG CHEW CHEW PRN (20:25)
[2018-11-10] MEDS ORDERED: SALINE 0.65% NAS SPR 44 ML BTL PRN (20:25)
[2018-11-10] MEDS ORDERED: ALBUTEROL 2.5 MG/3 ML NEB NEB PRN (20:40)
--- NOTE | 2018-11-10 20:42 | Hospitalist Progress Note ---
Subjective Progress Notes Subjective No cp/sob. 1900cc crystalloid, labetalol, dexamethasone, and TXA intra-op. Physical Exam Vital Signs Date Time Temp Pulse Resp B/P (MAP) Pulse Ox O2 Delivery O2 Flow Rate FiO2 11/10/18 19:48 97.6 18 161/81 (107) 100 Nasal Cannula 3.5 11/10/18 19:15 78 General Appearance: Alert, Awake, No Acute Distress Neuro: Other (Orientated to place, date, events) Cardiovascular: Regular Rate and Rhythm Respiratory: Clear to Auscultation Extremities: No Edema Assessment and Plan Problems: (1) Septic arthritis Status: Acute Assessment & Plan: Post explant and wash out, growing E coli from joint aspirate outside hospital. She does have Abx impregnated spacer placed to her right knee. Will cover with ceftriaxone based on susceptibility data from outside hospital. She had PICC placed 09/30. Likely source of contamination was E.Coli noted in urine cx performed in ER 04/24. Sensitivities from urine cx on 04/24 are matching current sensitivities from cultures of R knee. She finished 6 weeks of Rocephin and had the spacers remove and a revision of the TKA. Dr. Khan wants to continue the Rocephin for now. ASA for DVT prophylaxis. (2) HTN (hypertension) Status: Chronic Assessment & Plan: Will continue chronic HCTZ and Losartan with parameters. (3) Hepatitis Status: Chronic Assessment & Plan: The patient has liver disease, fatty liver per her report. She does have esophageal varices and portal hypertension per CT report done 09/29/18. She sees a GI specialist in [place]. She had been on chronic lactulose but admits she had not been taking it twice daily. She has been refusing to take lactulose on ECF. Ammonia level increased off of treatment so the patient is back on lactulose. Simethicone for gas (4) GERD (gastroesophageal reflux disease) Status: Chronic Assessment & Plan: Continue chronic PPI. CHRISTOPHE HULL MD Nov 10, 2018 20:42
[2018-11-10] MEDS: cefTRIAXone 2 GM VIAL IVP SCH (21:30)
[2018-11-10] MEDS: LACTULOSE 10 GM/15 ML UDCUP PO SCH (21:30)
[2018-11-10] MEDS: MONTELUKAST SODIUM 10 MG TAB PO SCH (21:30)
[2018-11-10] MEDS: OXYBUTYNIN CHL 5 MG TAB PO SCH (21:31)
[2018-11-10] MEDS: DULoxetine HCL 30 MG CAPCR PO SCH (21:32)
[2018-11-11] VITALS: BP 124/65
[2018-11-11] MEDS: CLINDAMYCIN(*) 600 MG/NS 50 ML 50 ML IVPB SCH ×2 (03:39→12:06)
[2018-11-11 03:45] VITALS: BP 122/59
[2018-11-11] MEDS: APAP/HYDROCODONE 325/7.5 TAB PO PRN ×3 (04:26→15:09)
[2018-11-11 06:21] LABS: PLATELET COUNT, AUTOMATED 121 K/uL (150-450)
[2018-11-11 08:22] VITALS: BP 132/64
[2018-11-11] MEDS: HYDROCHLOROTHIAZIDE 25 MG TAB PO SCH (08:25)
[2018-11-11] MEDS: CELECOXIB 200 MG CAP PO SCH ×2 (08:25→17:22)
[2018-11-11] MEDS: PANTOPRAZOLE SOD 40 MG TABEC PO SCH (08:25)
[2018-11-11] MEDS: ASPIRIN 325 MG ENTERIC COATED PO SCH (08:25)
[2018-11-11] MEDS: OXYBUTYNIN CHL 5 MG TAB PO SCH ×2 (08:25→21:00)
[2018-11-11] MEDS: LACTULOSE 10 GM/15 ML UDCUP PO SCH ×2 (08:26→21:01)
[2018-11-11] MEDS: LOSARTAN POTASSIUM 50 MG TAB PO SCH (08:26)
[2018-11-11] MEDS ORDERED: FLUTICASONE PROP 0.05% 16 GM SCH (09:00)
[2018-11-11 09:31] VITALS: Ht 165.1 cm; Wt 102.1 kg
--- NOTE | 2018-11-11 09:50 | Hospitalist Progress Note ---
Subjective Progress Notes Subjective She was admitted s/p knee replacement. She has no complaints this morning. She had no acute events overnight. Patient Complains of: Cardiovascular: No: Chest Pain Respiratory: No: Shortness of Breath Physical Exam Vital Signs Date Time Temp Pulse Resp B/P (MAP) Pulse Ox O2 Delivery O2 Flow Rate FiO2 11/11/18 09:15 84 11/11/18 09:10 Nasal Cannula 1.0 11/11/18 08:22 98.2 81 16 132/64 (86) l Intake and Output 11/11/18 06:59 Intake Total 1950 ml Balance 1950 ml Intake IV Total 1950 ml # Voids 1 General Appearance: Alert, Awake, No Acute Distress, Afebrile Neuro: No Gross deficits Cardiovascular: Regular Rate and Rhythm Respiratory: No Respiratory Distress, Clear to Auscultation Psych: Alert & Oriented X3, Appropriate Mood & Affect Result Diagram: 11/11/18 0552 11/11/18 0552 Assessment and Plan Problems: (1) Septic arthritis Status: Acute Assessment & Plan: Post explant and wash out, growing E coli from joint aspirate outside hospital. She does have Abx impregnated spacer placed to her right knee. Will cover with ceftriaxone based on susceptibility data from outside hospital. She had PICC placed 09/30. Likely source of contamination was E.Coli noted in urine cx performed in ER 04/24. Sensitivities from urine cx on 04/24 are matching current sensitivities from cultures of R knee. She finished 6 weeks of Rocephin and had the spacers remove and a revision of the TKA. Dr. Khan wants to continue the Rocephin for now. ASA for DVT prophylaxis. (2) HTN (hypertension) Status: Chronic Assessment & Plan: Will continue chronic HCTZ and Losartan with parameters. (3) Hepatitis Status: Chronic Assessment & Plan: The patient has liver disease, fatty liver per her report. She does have esophageal varices and portal hypertension per CT report done 09/29/18. She sees a GI specialist in [place]. She had been on chronic lactulose but admits she had not been taking it twice daily. She has been refusing to take lactulose on ECF. Ammonia level increased off of treatment so the patient is back on lactulose. Simethicone for gas (4) GERD (gastroesophageal reflux disease) Status: Chronic Assessment & Plan: Continue chronic PPI. Exam Sepsis Risk: No Definite Risk MENDEZ,CHERI M TAFE TEACHER Nov 11, 2018 09:50
--- NOTE | 2018-11-11 11:51 | NUR ---
Physical Therapy Impression PT eval completed. Pt is indep with bed mobility and transfers. Pt does require cues to slow down and reduce impulsive mobility, as well as reminders that she is now able to be WBAT on R) LE, and use this leg more for support and balance. Pt was on room air and tolerated ambulation to BR, however, upon washing hands, pt became more fatigued and light-headed. SpO2 noted to be in low 80's and pt was placed back on O2 while seated at EOB. Pt recovered to mid 90's with 3 deep breaths and O2 at 2 L/min. Pt encouraged to be up frequently with nursing and monitor O2 needs. Physical Therapy Goals 1. Pt to be modified indep with bed mobility and supine<>sit trnsfrs 2. Pt to be modified indep with sit to/from stand transfers 3. Pt to tolerate ambulation x 100' with VS in safe range 4. Pt to complete up/down steps with rail and SBA/CGA for safety. Patient's Goals
[2018-11-11 12:12] VITALS: BP 113/44
--- NOTE | 2018-11-11 13:07 | Medical Nutrition Therapy ---
Nutrition Anthropometrics Height (Inches): 65.00 Height (Calculated Centimeters: 165.011347 Weight (Pounds): 225 Weight (Calculated Kilograms): 102.200 BMI: 37.4 Ezequiel Nutrition Score: Adequate Ezequiel Nutrition Risk Score: 17 Dietary Referral Nutrition Risk Factors: Nutrition Risk Comment: Physical Findings Physical Appearance: Obese BMI 30-39 Skin Appearance Skin Appearance: Edema Edema Location Modifier: Both Edema Location: Lower Extremity Type of Edema: Degree of Edema: 1+ Gastrointestinal Symptoms GI Symtoms: Tube Present: Bowel Sounds: Recent Bowel Pattern: Stool Characteristics: Nutritional Diagnosis Nutritional Risk Acuity 2: Sepsis Nutritional Risk Acuity 3: GERD Nutritional Risk Acuity 4: Good Appetite Past Medical History: HX of GERD, HTN, OSP, depression, urinary incontinence, hypercholesterolemia, hepatitis with jaundice, IBS. Nutritional Acuity: 2-Moderate Nutrition Diagnosis: Increased Nutrient Needs Nutrition Etiology: Physiological Causes Nutrition Problem/Etiology/Sym: Increased nutrient needs related to physiological causes as evidenced by septic arthritis, hepatitis, GERDm and HTN. Energy Requirement: 2040 (MSJ, 1.1 TEF, 1.2 AF) Adjusted Energy Requirement Re: 1540 (-500kcal) Protein Requirement: 81 (0.8 g AA/kg) Fluid Requirement: 1540 (1ml/kcal) Diet Type: Diet as Tolerated MARKIE/REG Nutrition Intervention: Cont diet as ordered Drug: Diuretics Nutrition Monitoring & Eval Nutrition Goals: Eat 50-100% Meal RD Patient Assessment Time: [address] Assessment Type: RD Assessment Patient Nutrition Acuity: 2-Moderate Follow Up Date: Nov 13, 2018 Nutritional Comment: 11/11: Pt admitted for septic arthritis, hepatitis, GERD, HTN. Pt has a HX of GERD, HTN, OSP, depression, urinary incontinence, hypercholesterolemia, hepatitis with jaundice, IBS. Pt is currently taking hydrochlorothiazide, Potassium is WNL. Pt has elevated RBG (118) and BUN (21) levels. Pt is on a MARKIE diet. -OMAR JESUS Nov 11, 2018 09:45
[2018-11-11 15:02] VITALS: BP 106/42
[2018-11-11] MEDS: cefTRIAXone 2 GM VIAL IVP SCH (20:58)
[2018-11-11] MEDS: DULoxetine HCL 30 MG CAPCR PO SCH (21:01)
[2018-11-11] MEDS: MONTELUKAST SODIUM 10 MG TAB PO SCH (21:01)
[2018-11-11 23:27] VITALS: BP 122/58
[2018-11-12 03:02] VITALS: BP 112/79
[2018-11-12 06:33] LABS: PLATELET COUNT, AUTOMATED 117 K/uL (150-450)
[2018-11-12 08:06] VITALS: BP 123/55
[2018-11-12] MEDS: ASPIRIN 325 MG ENTERIC COATED PO SCH (08:22)
[2018-11-12] MEDS: LACTULOSE 10 GM/15 ML UDCUP PO SCH ×2 (08:22→21:11)
[2018-11-12] MEDS: CELECOXIB 200 MG CAP PO SCH ×2 (08:22→18:05)
[2018-11-12] MEDS: OXYBUTYNIN CHL 5 MG TAB PO SCH ×2 (08:23→21:10)
[2018-11-12] MEDS: PANTOPRAZOLE SOD 40 MG TABEC PO SCH (08:23)
[2018-11-12] MEDS: HYDROCHLOROTHIAZIDE 25 MG TAB PO SCH (08:23)
[2018-11-12] MEDS: CEPHALEXIN MONO 500 MG CAP PO SCH ×3 (08:24→21:10)
[2018-11-12] MEDS: LOSARTAN POTASSIUM 50 MG TAB PO SCH (08:24)
[2018-11-12] MEDS: APAP/HYDROCODONE 325/7.5 TAB PO PRN ×2 (08:33→15:04)
--- NOTE | 2018-11-12 09:38 | Hospitalist Progress Note ---
Subjective Progress Notes Subjective She has no complaints this morning. She had no acute events overnight. Patient Complains of: Cardiovascular: No: Chest Pain Respiratory: No: Shortness of Breath Physical Exam Vital Signs Date Time Temp Pulse Resp B/P (MAP) Pulse Ox O2 Delivery O2 Flow Rate FiO2 11/12/18 08:27 85 11/12/18 08:06 99.0 87 16 123/55 (77) Nasal Cannula 1.5 Intake and Output 11/12/18 06:59 Intake Total 557.3 ml Balance 557.3 ml Intake Oral 500 ml IV Total 57.3 ml # Voids 2 General Appearance: Alert, Awake, No Acute Distress, Afebrile Neuro: No Gross deficits Cardiovascular: Regular Rate and Rhythm Respiratory: No Respiratory Distress, Clear to Auscultation GI: Soft and Non-Tender Psych: Alert & Oriented X3, Appropriate Mood & Affect Result Diagram: 11/12/18 0611 11/11/18 0552 Assessment and Plan Problems: (1) Septic arthritis Status: Acute Assessment & Plan: Post explant and wash out, growing E coli from joint aspirate outside hospital. She does have Abx impregnated spacer placed to her right knee. Will cover with ceftriaxone based on susceptibility data from outside hospital. She had PICC placed 09/30. Likely source of contamination was E.Coli noted in urine cx performed in ER 04/24. Sensitivities from urine cx on 04/24 are matching current sensitivities from cultures of R knee. She finished 6 weeks of Rocephin and had the spacers remove and a revision of the TKA. Dr. Khan wants to switch patient to Keflex 1gm TID for 2 weeks started 11/12. ASA for DVT prophylaxis. (2) HTN (hypertension) Status: Chronic Assessment & Plan: Will continue chronic HCTZ and Losartan with parameters. (3) Hepatitis Status: Chronic Assessment & Plan: The patient has liver disease, fatty liver per her report. She does have esophageal varices and portal hypertension per CT report done 09/29/18. She sees a GI specialist in [place]. She had been on chronic lactulose but admits she had not been taking it twice daily. She has been refusing to take lactulose on ECF. Ammonia level increased off of treatment so the patient is jose k on lactulose. Simethicone for gas (4) GERD (gastroesophageal reflux disease) Status: Chronic Assessment & Plan: Continue chronic PPI. Exam Sepsis Risk: No Definite Risk CHERI MENDEZ Nov 12, 2018 09:38
[2018-11-12 11:08] VITALS: BP 128/56
[2018-11-12 11:27] VITALS: BP 140/69
[2018-11-12 16:08] VITALS: BP 135/55
--- NOTE | 2018-11-12 17:39 | Antimicrobial Stewardship ---
Antimicrobial Time Out Antimicrobial Stewardship MD Service: Other (Dr. Khan, orthopedic surgeon.) Indications: Other (Septic arthritis of knee ) Antimicrobial Used Rocephin 1 gm iv qday started upon admission (pt had received 6 weeks of this prior to admission). Antibiotic changed to Keflex 1 gm po on 11/12/18. Start Date: Nov 10, 2018 Culture Results: Yes ( cultures done at an outside facility showing e coli) Comments Comments Keflex to be continued for a total of 2 weeks FAUSTO DAVISON Nov 12, 2018 17:39
[2018-11-12] MEDS ORDERED: NS(*) 0.9% 500 ML BAG 500 ML ONE (18:22)
[2018-11-12 19:26] VITALS: BP 120/54
[2018-11-12] MEDS ORDERED: FLUTICASONE PROP 0.05% 16 GM SCH (21:00)
[2018-11-12] MEDS: MONTELUKAST SODIUM 10 MG TAB PO SCH (21:09)
[2018-11-12] MEDS: DULoxetine HCL 30 MG CAPCR PO SCH (21:10)
[2018-11-13] VITALS (10 sets, daily range): BP systolic 122–167; BP diastolic 58–81
[2018-11-13 06:19] LABS: PLATELET COUNT, AUTOMATED 118 K/uL (150-450)
--- NOTE | 2018-11-13 08:00 | Hospitalist Progress Note ---
Subjective Progress Notes Subjective Doing well with PT and is ready to go home. Tolerates antibiotics well. Right knee feels good with minimal pain. She received two units of PRBC's yesterday and tolerated these well. Hg. was 7.3 pretransfusion and 9.4 this morning. Physical Exam Vital Signs Date Time Temp Pulse Resp B/P (MAP) Pulse Ox O2 Delivery O2 Flow Rate FiO2 11/13/18 05:25 86 11/13/18 05:25 Nasal Cannula 0.5 11/13/18 05:21 98.0 83 12 137/66 Intake and Output 11/13/18 07:00 Intake Total 1490 ml Balance 1490 ml Intake Oral 740 ml Blood Product 750 ml # Voids 2 General Appearance: Alert, Awake, No Acute Distress, Afebrile Cardiovascular: Regular Rate and Rhythm Respiratory: Clear to Auscultation Extremities: Soft and Non Tender, Warm, Pulses, Perfused Psych: Alert & Oriented X3, Appropriate Mood & Affect Result Diagram: 11/13/18 0555 11/11/18 0552 Assessment and Plan Problems: (1) Septic arthritis Status: Acute Assessment & Plan: Post explant and wash out, growing E coli from joint aspirate outside hospital. She does have Abx impregnated spacer placed to her right knee. On ceftriaxone based on susceptibility data from outside hospital. She had PICC placed 09/30. Likely source of contamination was E.Coli noted in urine cx performed in ER 04/24. Sensitivities from urine cx on 04/24 are matching current sensitivities from cultures of R knee. She finished 6 weeks of Rocephin and had the spacers remove and a revision of the TKA. Dr. Khan wants to switch patient to Keflex 1gm TID for 2 weeks started 11/12. ASA for DVT prophylaxis. Doing very well with PT. (2) HTN (hypertension) Status: Chronic Assessment & Plan: Will continue chronic HCTZ and Losartan with parameters. (3) Hepatitis Status: Chronic Assessment & Plan: The patient has liver disease, fatty liver per her report. S he does have esophageal varices and portal hypertension per CT report done 09/29/18. She sees a GI specialist in [place]. She had been on chronic lactulose but admits she had not been taking it twice daily. She has been refusing to take lactulose on ECF. Ammonia level increased off of treatment so the patient is back on lactulose. Simethicone for gas (4) GERD (gastroesophageal reflux disease) Status: Chronic Assessment & Plan: Continue chronic PPI. Time Spent on Plan of Care: > 30 min Copies to: ; Exam Sepsis Risk: No Definite Risk ERLINDA WAKEFIELD MD FACP Nov 13, 2018 08:00
--- NOTE | 2018-11-13 09:06 | NUR ---
PHYSICAL THERAPY INFORMATION TRANSFER SHEET BED MOBILITY: Independent TRANSFERS: Independent GAIT: 60 ' with O2 RW and Verbal cues Modified I/ AE Weightbearing Status: Weight bearing as tolerated STAIRS: 1 with CGA. EXERCISES: Verbalizes Needs: Yes Understands Directions Yes Cooperative: Yes Family Teaching: No Physical Therapy Comment:
[2018-11-13] MEDS: LACTULOSE 10 GM/15 ML UDCUP PO SCH (09:31)
[2018-11-13] MEDS: APAP/HYDROCODONE 325/7.5 TAB PO PRN (09:31)
[2018-11-13] MEDS: LOSARTAN POTASSIUM 50 MG TAB PO SCH (09:32)
[2018-11-13] MEDS: CELECOXIB 200 MG CAP PO SCH (09:32)
[2018-11-13] MEDS: PANTOPRAZOLE SOD 40 MG TABEC PO SCH (09:32)
[2018-11-13] MEDS: OXYBUTYNIN CHL 5 MG TAB PO SCH (09:32)
[2018-11-13] MEDS: CEPHALEXIN MONO 500 MG CAP PO SCH ×2 (09:32→14:10)
[2018-11-13] MEDS: ASPIRIN 325 MG ENTERIC COATED PO SCH (09:32)
[2018-11-13] MEDS: HYDROCHLOROTHIAZIDE 25 MG TAB PO SCH (09:32)
--- NOTE | 2018-11-13 10:01 | Medical Nutrition Therapy ---
Nutrition Anthropometrics Height (Inches): 65.00 Height (Calculated Centimeters: 165.635247 Weight (Pounds): 225 Weight (Calculated Kilograms): 102.200 BMI: 37.4 Ezequiel Nutrition Score: Adequate Ezequiel Nutrition Risk Score: 17 Dietary Referral Nutrition Risk Factors: Nutrition Risk Comment: Physical Findings Physical Appearance: Obese BMI 30-39 Skin Appearance Skin Appearance: Edema Edema Location Modifier: Both Edema Location: Lower Extremity Type of Edema: Degree of Edema: 1+ Gastrointestinal Symptoms GI Symtoms: Tube Present: Bowel Sounds: Recent Bowel Pattern: Stool Characteristics: Nutritional Diagnosis Nutritional Risk Acuity 2: Sepsis Nutritional Risk Acuity 3: GERD Nutritional Risk Acuity 4: Good Appetite Past Medical History: HX of GERD, HTN, OSP, depression, urinary incontinence, hypercholesterolemia, hepatitis with jaundice, IBS. Nutritional Acuity: 2-Moderate Nutrition Diagnosis: Increased Nutrient Needs Nutrition Etiology: Physiological Causes Nutrition Problem/Etiology/Sym: Increased nutrient needs related to physiological causes as evidenced by septic arthritis, hepatitis, GERDm and HTN. Energy Requirement: 2040 (MSJ, 1.1 TEF, 1.2 AF) Adjusted Energy Requirement Re: 1540 (-500kcal) Protein Requirement: 81 (0.8 g AA/kg) Fluid Requirement: 1540 (1ml/kcal) Diet Type: Diet as Tolerated MARKIE/REG Nutrition Intervention: Cont diet as ordered Drug: Diuretics Nutrition Monitoring & Eval RD Patient Assessment Time: [address] Assessment Type: RD Assessment Patient Nutrition Acuity: 2-Moderate Follow Up Date: Nov 17, 2018 Nutritional Comment: 11/11: Pt admitted for septic arthritis, hepatitis, GERD, HTN. Pt has a HX of GERD, HTN, OSP, depression, urinary incontinence, hypercholesterolemia, hepatitis with jaundice, IBS. Pt is currently taking hydrochlorothiazide, Potassium is WNL. Pt has elevated RBG (118) and BUN (21) levels. Pt is on a MARKIE diet. -JESUS 11/13: pt is doing well. right knee has minimal pain. Pt has elevated RBG (118) and BUN (21). Pt consumed 100% of chocolate boost. Monitor intake. -OMAR JESUS Nov 13, 2018 09:41
[2018-11-13] MEDS ORDERED: ASPI-757 PO (11:48)
[2018-11-13] MEDS ORDERED: CEPH-13 PO (11:49)
== END 2018-11-13 14:20 | disposition home health service (06) | DRG 467 ==
LOC: OR 03:49 → MED 17:45
PROVIDERS: ADMIT Orthopaedic Surgery; ATTEND Orthopaedic Surgery
PROC: 0SPC08Z Removal of Spacer from Right Knee Joint, Open Approach (ICD-10-PCS; 2018-11-10)
PROC: 0S9C0ZZ Drainage of Right Knee Joint, Open Approach (ICD-10-PCS; 2018-11-10)
PROC: 30233N1 Transfusion of Nonautologous Red Blood Cells into Peripheral Vein, Percutaneous Approach (ICD-10-PCS; 2018-11-10)
PROC: 0SRC0J9 Replacement of Right Knee Joint with Synthetic Substitute, Cemented, Open Approach (ICD-10-PCS; principal; 2018-11-10 12:15)
DX: T84.53XA Infection and inflammatory reaction due to internal right knee prosthesis, initial encounter (principal); K76.6 Portal hypertension; I85.10 Secondary esophageal varices without bleeding; I10 Essential (primary) hypertension; K76.0 Fatty (change of) liver, not elsewhere classified; K73.9 Chronic hepatitis, unspecified; K21.9 Gastro-esophageal reflux disease without esophagitis; F03.90 Unspecified dementia, unspecified severity, without behavioral disturbance, psychotic disturbance, mood disturbance, and anxiety
CPT/HCPCS: 36415; 36430; 82310; 82374; 82435; 82565; 82947; 84132; 84295; 84520; 85025; 85610; 86850; 86900; 86901; 86920; 87070; 87071; 87073; 87176; 87205; 97161; C1713; C1776; J0696; J1100; J2001; J2250; J2405; J2704; J3010; J3370; J3490; J7040; J7060; P9016

== ENCOUNTER → 2018-12-25 | Outpatient (CLI) | payer MEDICARE, MEDICAID ==
[2018-11-11 09:31] VITALS: BMI 37.4
[~2018-12-25] MED LIST changes: +CEPH-13 PO
[2018-12-25 15:55] LABS: PLATELET COUNT, AUTOMATED 182 K/uL (150-450)
== END ==
LOC: LAB 15:08
PROVIDERS: ATTEND Nurse Practitioner Family
DX: K75.4 Autoimmune hepatitis (principal); R32 Unspecified urinary incontinence; R74.8 Abnormal levels of other serum enzymes; I10 Essential (primary) hypertension; Z87.440 Personal history of urinary (tract) infections; E72.20 Disorder of urea cycle metabolism, unspecified; R59.0 Localized enlarged lymph nodes; E78.00 Pure hypercholesterolemia, unspecified; D51.0 Vitamin B12 deficiency anemia due to intrinsic factor deficiency
CPT/HCPCS: 36415; 81001; 82040; 82140; 82150; 82247; 82310; 82374; 82435; 82565; 82607; 82947; 83690; 84075; 84132; 84155; 84295; 84450; 84460; 84520; 85025; 85651; 86140; 87077; 87088; 87186

== ENCOUNTER → 2019-02-02 | Outpatient (CLI) | payer MEDICAID, MEDICARE ==
[2018-11-11 09:31] VITALS: BMI 37.4
--- NOTE | 2019-02-02 12:37 | RADIOLOGY IMAGING REPORT ---
FACILITY: [facility] PATIENT NAME: Luciana Berg : 1950 MR: [id number] V: [id number] EXAM DATE: ORDERING PHYSICIAN: FELICE RICHARDS TECHNOLOGIST: Location: [facility] - [place] Patient: Luciana Berg : 1950 Visit/Account:[id number] Date of Sevice: 02/02/2019 EXAMINATION: Abdominal ultrasound complete HISTORY: Abdominal pain. COMPARISON: CT September 29, 2018 FINDINGS: Gallbladder: Surgically removed Liver: The left lobe appears prominent Common duct: Normal measuring four mm. Pancreas: Negative. Spleen: Accessory splenule measuring 12 cm in length. Period there are adjacent collateral vessels in the splenic hilum Kidneys: The right kidney was not ideally seen due to patient's body habitus., the right measures 9. 5 cm in length, and the left 7.9 cm. No hydronephrosis. Upper abdominal aorta and IVC: Negative. Ascites: None. IMPRESSION: Postsurgical changes from a cholecystectomy The left lobe the liver appears prominent as was noted on prior CTs Prominent collateral vessels adjacent to the splenic hilum Right kidney not ideally seen due to patient's body habitus Report Dictated By: Francesca Wagoner MD at 02/02/2019 12:20 PM Report E-Signed By: Francesca Wagoner MD at 02/02/2019 12:30 PM WSN:[email or web address]
--- NOTE | 2019-02-02 16:28 | RADIOLOGY IMAGING REPORT ---
FACILITY: [facility] - [place] PATIENT NAME: Luciana Berg : 1950 MR: [id number] V: [id number] EXAM DATE: ORDERING PHYSICIAN: FELICE RICHARDS TECHNOLOGIST: Location: [facility] - [place] Patient: Luciana Berg : 1950 Visit/Account:[id number] Date of Sevice: 02/02/2019 Bilateral carotid artery Doppler duplex ultrasound scan. HISTORY: Bruit. COMPARISON: None. A color flow Doppler duplex ultrasound scan with spectral analysis was performed on the carotid and v ertebral arteries bilaterally. Measurement of carotid stenosis is based on velocity parameters that correlate the residual internal carotid diameter with [place] Symptomatic Carotid Endarterecto my Trial (NASCET)- based stenosis levels. Right carotid peak systolic velocities are as follows: Superior right ICA - 98 cm/sec. Mid right ICA - 85 cm/sec. Proximal right ICA - 80 cm/sec. Right carotid bulb - 86 cm/sec. Superior right CCA - 113 cm/sec. Mid right CCA- 157 cm/sec. Inferior right CCA- 252 cm/sec. Proximal right ECA- 95 cm/sec. Mid right vertebral- 46 cm/sec. Right ICA/CCA ratio- 0.6 ( normal < 1.5 ). Antegrade right vertebral artery flow- YES. Left carotid peak systolic velocities are as follows: Superior left ICA - 105 cm/sec. Mid left ICA- 64 cm/sec. Proximal left ICA- 91 cm/sec. Left carotid bulb- 75 cm/sec. Superior left CCA- 72 cm/sec. Mid left CCA- 114 cm/sec. Inferior left CCA- 209 cm/sec. Proximal left ECA- 80 cm/sec. Mid left vertebral- 69 cm/sec. Left ICA/CCA ratio- 0.9 ( normal < 1.5). Antegrade left vertebral artery flow- YES. Partially calcified plaques are present in the carotid bulbs and proximal internal carotid arteries b ilaterally resulting in 30-50% stenoses by visual criteria. Velocities are elevated in the right mid and proximal common carotid artery though no focal stenosis is identified by visual criteria. The car otid arteries are moderately tortuous bilaterally. IMPRESSION: 30-50% stenoses of the carotid bulbs and proximal internal carotid arteries bilaterally. Elevated velocities in the right common carotid artery without evidence of significant focal stenosis by visual criteria. Report Dictated By: Mehdi Dixon MD at 02/02/2019 4:19 PM Report E-Signed By: Mehdi Dixon MD at 02/02/2019 4:24 PM WSN:[id number]
== END ==
LOC: US 00:42
PROVIDERS: ATTEND Internal Medicine Gastroenterology
DX: I65.23 Occlusion and stenosis of bilateral carotid arteries (principal); Z90.49 Acquired absence of other specified parts of digestive tract; R16.0 Hepatomegaly, not elsewhere classified; R93.9 Diagnostic imaging inconclusive due to excess body fat of patient
CPT/HCPCS: 76700; 93880

== ENCOUNTER → 2019-02-02 | Outpatient (CLI) | payer MEDICARE ==
[2018-11-11 09:31] VITALS: BMI 37.4
== END ==
LOC: LAB 12:08
PROVIDERS: ATTEND Nurse Practitioner Family
DX: E72.20 Disorder of urea cycle metabolism, unspecified (principal)
CPT/HCPCS: 36415; 82140

== ENCOUNTER → 2019-03-24 | Outpatient (CLI) | payer MEDICARE ==
[2018-11-11 09:31] VITALS: BMI 37.4
[2019-03-24 09:25] LABS: PLATELET COUNT, AUTOMATED 164 K/uL (150-450)
== END ==
LOC: LAB 09:06
PROVIDERS: ATTEND Nurse Practitioner Family
DX: K75.4 Autoimmune hepatitis (principal); R10.13 Epigastric pain
CPT/HCPCS: 36415; 82040; 82140; 82150; 82247; 82310; 82374; 82435; 82565; 82947; 83690; 84075; 84132; 84155; 84295; 84450; 84460; 84520; 85025

== ENCOUNTER → 2019-03-31 | Outpatient (CLI) | payer MEDICARE ==
[2018-11-11 09:31] VITALS: BMI 37.4
--- NOTE | 2019-03-31 14:43 | RADIOLOGY IMAGING REPORT ---
FACILITY: [facility] PATIENT NAME: Luciana Berg : 1950 MR: [id number] V: [id number] EXAM DATE: ORDERING PHYSICIAN: SHILA HUBBARD TECHNOLOGIST: Location: [facility] Patient: Luciana Berg : 1950 Visit/Account:[id number] Date of Sevice: 03/31/2019 EXAMINATION: Abdominal ultrasound complete HISTORY: Abdomen pain, liver disease COMPARISON: February 02, 2019 FINDINGS: Gallbladder: Absent Liver: There is a coarse echotexture throughout the liver although discrete mass is not identified. Common duct: Normal measuring 3.7 mm. Pancreas: Negative. Spleen: Appears enlarged measuring 13.8 cm in length. Period this an adjacent splenule Kidneys: Normal in size and echogenicity, the right measures 9.6 cm in length, and the left 8.4 cm. No hydronephrosis. There is a mildly lobulated contour to both kidneys Upper abdominal aorta and IVC: Negative. Ascites: None. IMPRESSION: Coarse echotexture to the liver is present without discrete mass Spleen appears mildly enlarged Postsurgical changes from a cholecystectomy Report Dictated By: Francesca Wagoner MD at 03/31/2019 2:31 PM Report E-Signed By: Francesca Wagoner MD at 03/31/2019 2:35 PM WSN:[email or web address]
== END ==
LOC: US 01:28
PROVIDERS: ATTEND Nurse Practitioner Family
DX: K75.4 Autoimmune hepatitis (principal); R10.13 Epigastric pain; I16.0 Hypertensive urgency; R16.1 Splenomegaly, not elsewhere classified
CPT/HCPCS: 76700